=== PATIENT | male | born 1955 | race Caucasian/White ===

== ENCOUNTER 2019-03-26 09:26 | Day surgery (SDC) | payer MEDICARE, OTHER ==
[2019-03-23 10:15] VITALS: BMI 29.3
[~2019-03-26 09:26] MED LIST: ALPRAZolam 0.25 MG TAB PO PRN; ALPRAZolam 0.5 MG TAB PO PRN; ASPIRIN 325 MG TAB PO STA; ATORVASTATIN 80 MG TAB PO STA; NITROGLYCERIN SL TABS 0.4 MG TAB SUBLINGUAL PRN; SODIUM CHLORIDE 0.9% 1,000 ML in EMPTY BAG 1 BAG IV ONE
[2019-03-26] MEDS ORDERED: SODIUM CHLORIDE 0.9% 1,000 ML IV ONE (09:46)
[2019-03-26 09:56] LABS: Glucose,Whole Blood 185 mg/dL (75-99)
[2019-03-26 10:23] VITALS: RESP 20; TEMP 99.4
[2019-03-26] MEDS ORDERED: fentaNYL (PF) 50 MCG/ML 2 ML AMP ONE (10:23)
[2019-03-26] MEDS ORDERED: LIDOCAINE 1% INJ 10MG/ML (20 ML MDV) ONE (10:23)
[2019-03-26] MEDS: MIDAZOLAM (PF) 2 MG/2 ML VIAL IV ONE ×2 (10:26→10:31)
[2019-03-26] MEDS ORDERED: fentaNYL (PF) 50 MCG/ML 2 ML AMP IV ONE (10:26)
[2019-03-26] MEDS ORDERED: LIDOCAINE 1% INJ 10MG/ML (20 ML MDV) SQ ONE (10:28)
[2019-03-26] MEDS ORDERED: IOPAMIDOL-370 125ML BTL INJ ONE (10:48)
[2019-03-26] MEDS ORDERED: RX INFO: IV CONTRAST WAS GIVEN 1 EACH MISC MISCELLANE PRN (10:53)
[2019-03-26] MEDS ORDERED: SODIUM CHLORIDE 0.9% 1,000 ML IV SCH (11:00)
--- NOTE | 2019-03-26 11:07 | CC ---
CARDIAC CATHETERIZATION REPORT INDICATION: Known CAD with abnormal stress test showing ischemia in right coronary artery distribution. PROCEDURE NOTE: After obtaining informed consent, left heart catheterization and coronary angiogram were performed via the right femoral artery using standard Vandana catheters. Patient tolerated the procedure well without any obvious immediate complications. FINDINGS: 1. HEMODYNAMICS: Left ventricular end-diastolic pressure is 13 mm. There is no significant gradient across the aortic valve. 2. LEFT VENTRICULOGRAM: Left ventriculogram is not performed. 3. ANGIOGRAPHIC DATA: Left Main Coronary Artery: Left main coronary artery is a normal-sized vessel and is free of stenosis. Divides into left anterior descending coronary artery and circumflex coronary artery. Circumflex coronary artery shows mild mild to moderate atherosclerotic plaque in a nondominant circumflex coronary artery. The OM branch shows mild atherosclerotic plaque. LAD appears heavily calcified and in the previously stented segment, there is a focal area of restenosis. At its worst, it seems to be a 90% stenosis. Right coronary artery is a large dominant vessel that appears heavily calcified. There are [id number] collaterals. In the proximal part, there is a focal 90% to 95% stenosis and there is extensive disease involving mid coronary artery and distal coronary artery. After it bifurcates into PDA and PLV in the ostial portion of the PLV branch, there is an 80% to 90% stenosis and in the midportion of the right coronary artery also, there is a 70% stenosis. CONCLUSIONS: Three-vessel coronary artery disease as described above with a focal area of stenosis involving LAD in the previously stented segment with severe stenosis involving the dominant right coronary artery. PLAN: I am going to review the angiographic data with Dr. Jordan the on-call shuttle inspector and we can hopefully do catheter based revascularization of both the LAD and the right coronary arteries. MMODL / IJN: [id number] /
[2019-03-26 13:24] LABS: ALT 22 U/L (21-72); AST 15 U/L (17-59); Albumin 3.9 g/dL (3.5-5.0); Alkaline Phosphatase 43 U/L (38-126); Anion Gap 6 mmol/L; Blood Urea Nitrogen 16 mg/dL (9-20); Calcium 9.2 mg/dL (8.4-10.2); Carbon Dioxide 27 mmol/L (22-30); Chloride 109 mmol/L (98-107); Glucose 186 mg/dL (74-99); Potassium 4.1 mmol/L (3.5-5.1); Sodium 142 mmol/L (137-145); Total Bilirubin 0.3 mg/dL (0.2-1.3); Total Protein 6.1 g/dL (6.3-8.2)
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
[2019-03-26 17:37] LABS: Appearance,Urine Clear (Clear); Bilirubin,Urine Negative (Negative); Blood,Urine Negative (Negative); Color,Urine Light Yellow; Glucose,Urine (UA) 3+ (Negative); Ketones,Urine Negative (Negative); Leukocyte Esterase,Urine Negative (Negative); Nitrite,Urine Negative (Negative); Protein,Urine Negative (Negative); Specific Gravity,Urine 1.036 (1.001-1.035); Urobilinogen,Urine <2.0 mg/dL (<2.0)
[2019-03-26 17:45] VITALS: BP 136/80; PULSE 64
--- NOTE | 2019-03-26 18:13 | XR ---
EXAMINATION TYPE: XR chest 2V DATE OF EXAM: 03/26/2019 COMPARISON: 11/30/2014 HISTORY: Preop surgery TECHNIQUE: Frontal and lateral views of the chest are obtained. FINDINGS: There is no heart failure nor confluent pneumonic infiltrate. Costophrenic angles are anitha r. There are chest leads. Diaphragm is normal. Bony thorax appears intact. IMPRESSION: Chest appears normal for age. No change.
[2019-03-26 20:42] LABS: Hemoglobin A1C 6.1 % (4.0-6.0)
--- NOTE | 2019-04-04 09:52 | P.VSCSTY ---
Greater Saphenous Vein Mapping This is bilateral lower extremity greater saphenous vein mapping. Date of service 03/26/2019 Vein quality and ultrasound appearance no endoluminal thrombus or wall changes are seen. Vein size groin right 11 x 7.8 groin left 6.3 x 6.4 High thigh right 4.2 x 4.6 high thigh left 6.7 x 5.8 Mid thigh right 5.0 x 4.2 mid thigh left 5.3 x 4.4 Above-knee right 5.6 x 4.0 above-knee left 5.6 x 4.4 Below knee right 4.0 x 3.5 below-knee left 3.8 x 3.5 Mid calf right 3.1 x 2.7 mid calf left 3.0 x 2.1 Ankle right 3.7 x 2.9 ankle left 2.4 x 2.2 Impression usable bilateral greater saphenous vein.
== END 2019-03-26 18:16 | disposition home or self-care (01) ==
LOC: CATHCVL 09:26
PROVIDERS: ATTEND Internal Medicine Cardiovascular Disease
DX: I25.10 Atherosclerotic heart disease of native coronary artery without angina pectoris (principal); T82.855A Stenosis of coronary artery stent, initial encounter; I25.84 Coronary atherosclerosis due to calcified coronary lesion; I08.3 Combined rheumatic disorders of mitral, aortic and tricuspid valves; I10 Essential (primary) hypertension; E78.2 Mixed hyperlipidemia; E11.9 Type 2 diabetes mellitus without complications; Z79.84 Long term (current) use of oral hypoglycemic drugs; Z98.2 Presence of cerebrospinal fluid drainage device; I69.398 Other sequelae of cerebral infarction; M19.90 Unspecified osteoarthritis, unspecified site; G47.30 Sleep apnea, unspecified; Z99.89 Dependence on other enabling machines and devices; Z80.1 Family history of malignant neoplasm of trachea, bronchus and lung; Z80.0 Family history of malignant neoplasm of digestive organs; Z79.899 Other long term (current) drug therapy; Z79.82 Long term (current) use of aspirin; Z88.8 Allergy status to other drugs, medicaments and biological substances
CPT/HCPCS: 93458; 84439; 80053; 84443; 81003; 83036; 71046; 93970; C1894; C1769; J2001; J3010; Q9967; J2250

== ENCOUNTER 2021-08-14 21:22 | Inpatient (IN) | payer OTHER, MEDICARE ==
[2021-08-14] MEDS ORDERED: SODIUM CHLORIDE 0.9% 1,000 ML IV STA (22:04)
[2021-08-14] MEDS ORDERED: VANCOMYCIN IV PER PHARMACY 1 EACH MISC MISCELLANE PRN (22:05)
[2021-08-14] MEDS ORDERED: MORPHINE SULFATE 4 MG/ML SYRINGE IVP STA (22:05)
[2021-08-14] MEDS ORDERED: VANCOMYCIN 1,250 MG in SODIUM CHLORIDE 0.9% 250 ML IVPB ONE (22:15)
[2021-08-14] MEDS ORDERED: ONDANSETRON 4 MG/2 ML VIAL IVP PRN (23:30)
[2021-08-14] MEDS ORDERED: NALOXONE 0.4 MG/ML 1 ML VIAL IV PRN (23:30)
--- NOTE | 2021-08-14 23:31 | ED ---
Recheck HPI - General Chief Complaint: Recheck/Abnormal Lab/Rx Stated Complaint: Incision drainage Time Seen by Provider: 08/14/21 21:40 Source: patient, EMS Mode of arrival: EMS Limitations: no limitations - Related Data Home Medications Medication Instructions Recorded Confirmed Cyclobenzaprine [Flexeril] 10 mg PO BID PRN 11/30/14 08/14/21 Docusate [Colace] 100 mg PO BID PRN 11/30/14 08/14/21 metFORMIN HCL [Glucophage] 850 mg PO BID@0800,1700 11/30/14 08/14/21 amLODIPine [Norvasc] 10 mg PO DAILY@0800 03/23/19 08/14/21 clonazePAM [KlonoPIN] 0.5 mg PO HS PRN 03/23/19 08/14/21 Acetaminophen Tab [Tylenol Tab] 1,000 mg PO Q8H 08/14/21 08/14/21 Ascorbic Acid [Vitamin C] 1,000 mg PO BID@0800,1700 08/14/21 08/14/21 Aspirin 81 mg PO DAILY@0800 08/14/21 08/14/21 Cetirizine HCl 10 mg PO DAILY@0800 08/14/21 08/14/21 Cholecalciferol [Vitamin D3 (25 125 mcg PO WE@1700 08/14/21 08/14/21 Mcg = 1000 Iu)] Clopidogrel [Plavix] 75 mg PO DAILY@0800 08/14/21 08/14/21 Famotidine [Pepcid] 20 mg PO BID@0800,1700 08/14/21 08/14/21 Ferrous Sulfate [Feosol] 325 mg PO BID@0800,1700 08/14/21 08/14/21 Fluticasone Nasal [place] [Flonase 2 spray EA NOSTRIL DAILY@0800 08/14/21 08/14/21 Nasal [place]] Gabapentin [Neurontin] 1,200 mg PO BID@0800,2100 08/14/21 08/14/21 Ketotifen 0.025% Ophth Soln 1 drop BOTH EYES BID@0800,2100 08/14/21 08/14/21 [Zaditor] Liquacel 30 ml PO TID@0800,1200,1700 08/14/21 08/14/21 Magnesium Hydroxide [Milk of 7,200 mg PO Q48H PRN 08/14/21 08/14/21 Magnesia Concentrate] Metoprolol Succinate (ER) [Toprol 100 mg PO DAILY@0800 08/14/21 08/14/21 Xl] Na Phos,M-B/Na Phos,Di-Ba [Fleet 133 ml RECTAL DAILY PRN 08/14/21 08/14/21 Adult] Polyethylene Glycol 3350 [Miralax] 17 gm PO DAILY@0800 08/14/21 08/14/21 Polyvinyl Alcohol/Povidone [Clear 2 drops BOTH EYES TID PRN 08/14/21 08/14/21 Eyes Natural Tears Drop] QUEtiapine FUMARATE [SEROquel] 300 mg PO HS 08/14/21 08/14/21 Rosuvastatin Calcium [Crestor] 5 mg PO HS 08/14/21 08/14/21 Sennosides [Senna] 17.2 mg PO HS 08/14/21 08/14/21 Sennosides [Senna] 17.2 mg PO HS PRN 08/14/21 08/14/21 Ubidecarenone [Co Q-10] 100 mg PO DAILY@1700 08/14/21 08/14/21 bisacodyL [Dulcolax] 10 mg RECTAL DAILY PRN 08/14/21 08/14/21 glipiZIDE [Glucotrol] 10 mg PO DAILY@0800 08/14/21 08/14/21 lisinopriL 20 mg PO DAILY@0800 08/14/21 08/14/21 oxyCODONE HCL [oxyCODONE HCL (IR)] 15 mg PO Q3H PRN 08/14/21 08/14/21 Allergies Allergy/AdvReac Type Severity Reaction Status Date / Time simvastatin Allergy SEVERE Verified 08/14/21 23:25 MUSCLE WEAKNESS aluminum AdvReac Unknown Verified 08/14/21 23:25 omeprazole AdvReac INCREASE Verified 08/14/21 23:25 IN HEARTBURN" Review of Systems ROS Statement: Those systems with pertinent positive or pertinent negative responses have been documented in the HPI. ROS Other: All systems not noted in ROS Statement are negative. Past Medical History Past Medical History: Coronary Artery Disease (CAD), CVA/TIA, Diabetes Mellitus, Hyperlipidemia, Hypertension, Osteoarthritis (OA), Sleep Apnea/CPAP/BIPAP Additional Past Medical History / Comment(s): BACK PAIN, CVA 2004, History of Any Multi-Drug Resistant Organisms: None Reported Past Surgical History: Heart Catheterization With Stent, Ventriculoperitoneal Shunt Additional Past Surgical History / Comment(s): COLONOSCOPY, EGD , LEFT ARM SURGERY WITH PLATE, PLATE REMOVED FROM LEFT HAND , VASECTOMY Past Anesthesia/Blood Transfusion Reactions: Previous Problems w/ Anesthesia Additional Past Anesthesia/Blood Transfusion Reaction / Comment(s): STATES WHEN HE WOKE UP FROM HIS FIRST HAND SURGERY HAD A FEELING OF SHORTNESS OF BREATH " NO PROBLEM WITH ANESTHESIA SINCE" Date of Last Stent Placement:: 2005 Past Psychological History: No Psychological Hx Reported Smoking Status: Never smoker Past Alcohol Use History: Occasional Past Drug Use History: Marijuana - Past Family History Mother Family Medical History: Cancer Additional Family Medical History / Comment(s): LIVER CANCER Father Family Medical History: Cancer Additional Family Medical History / Comment(s): Had lung cancer General Exam Limitations: no limitations Course Vital Signs 08/14/21 21:30 Temperature 97.8 F Pulse Rate 89 Respiratory 18 Rate Blood Pressure 113/65 O2 Sat by Pulse 99 Oximetry Medical Decision Making - Lab Data Result diagrams: 08/14/21 22:25 08/14/21 22:25 Lab Results 08/14/21 08/14/21 08/14/21 Range/Units 22:25 22:25 22:25 WBC 10.5 (3.8-10.6) k/uL RBC 3.22 L (4.30-5.90) m/uL Hgb 8.1 L (13.0-17.5) gm/dL Hct 26.3 L (39.0-53.0) % MCV 81.5 (80.0-100.0) fL MCH 25.1 (25.0-35.0) pg MCHC 30.8 L (31.0-37.0) g/dL RDW 16.8 H (11.5-15.5) % Plt Count 370 (150-450) k/uL MPV 6.8 Neutrophils % 82 % Lymphocytes % 9 % Monocytes % 6 % Eosinophils % 2 % Basophils % 0 % Neutrophils # 8.6 H (1.3-7.7) k/uL Lymphocytes # 1.0 (1.0-4.8) k/uL Monocytes # 0.6 (0-1.0) k/uL Eosinophils # 0.2 (0-0.7) k/uL Basophils # 0.0 (0-0.2) k/uL Hypochromasia Slight Anisocytosis Slight PT 10.8 (9.0-12.0) sec INR 1.0 (<1.2) APTT 22.7 (22.0-30.0) sec Sodium 136 L (137-145) mmol/L Potassium 4.4 (3.5-5.1) mmol/L Chloride 101 (98-107) mmol/L Carbon Dioxide 25 (22-30) mmol/L Anion Gap 10 mmol/L BUN 17 (9-20) mg/dL Creatinine 0.54 L (0.66-1.25) mg/dL Est GFR (CKD-EPI)AfAm >90 (>60 ml/min/1.73 sqM) Est GFR (CKD-EPI)NonAf >90 (>60 ml/min/1.73 sqM) Glucose 146 H (74-99) mg/dL Plasma Lactic Acid Teja (0.7-2.0) mmol/L Calcium 10.1 (8.4-10.2) mg/dL Phosphorus 3.3 (2.5-4.5) mg/dL Magnesium 1.7 (1.6-2.3) mg/dL Total Bilirubin 0.6 (0.2-1.3) mg/dL AST 25 (17-59) U/L ALT 7 (4-49) U/L Alkaline Phosphatase 76 (38-126) U/L Total Protein 6.7 (6.3-8.2) g/dL Albumin 3.7 (3.5-5.0) g/dL 08/14/21 Range/Units 22:25 WBC (3.8-10.6) k/uL RBC (4.30-5.90) m/uL Hgb (13.0-17.5) gm/dL Hct (39.0-53.0) % MCV (80.0-100.0) fL MCH (25.0-35.0) pg MCHC (31.0-37.0) g/dL RDW (11.5-15.5) % Plt Count (150-450) k/uL MPV Neutrophils % % Lymphocytes % % Monocytes % % Eosinophils % % Basophils % % Neutrophils # (1.3-7.7) k/uL Lymphocytes # (1.0-4.8) k/uL Monocytes # (0-1.0) k/uL Eosinophils # (0-0.7) k/uL Basophils # (0-0.2) k/uL Hypochromasia Anisocytosis PT (9.0-12.0) sec INR (<1.2) APTT (22.0-30.0) sec Sodium (137-145) mmol/L Potassium (3.5-5.1) mmol/L Chloride (98-107) mmol/L Carbon Dioxide (22-30) mmol/L Anion Gap mmol/L BUN (9-20) mg/dL Creatinine (0.66-1.25) mg/dL Est GFR (CKD-EPI)AfAm (>60 ml/min/1.73 sqM) Est GFR (CKD-EPI)NonAf (>60 ml/min/1.73 sqM) Glucose (74-99) mg/dL Plasma Lactic Acid Teja 1.3 (0.7-2.0) mmol/L Calcium (8.4-10.2) mg/dL Phosphorus (2.5-4.5) mg/dL Magnesium (1.6-2.3) mg/dL Total Bilirubin (0.2-1.3) mg/dL AST (17-59) U/L ALT (4-49) U/L Alkaline Phosphatase (38-126) U/L Total Protein (6.3-8.2) g/dL Albumin (3.5-5.0) g/dL - EKG Data -: EKG Interpreted by Me (PG is sinus rhythm 91 UT 148 QRS 102 QTC 450) Disposition Clinical Impression: Left below-knee amputee, Postoperative infection Disposition: ADMITTED IP TO THIS HOSP Condition: Good Is patient prescribed a controlled substance at d/c from ED?: No
[2021-08-14 23:37] LABS: Anisocytosis Slight; Basophils % (A) 0 %; Eosinophils # (A) 0.2 k/uL (0-0.7); Eosinophils % (A) 2 %; HCT 26.3 % (39.0-53.0); HGB 8.1 gm/dL (13.0-17.5); Hypochromasia Slight; Lymphocytes % (A) 9 %; MCH 25.1 pg (25.0-35.0); MCHC 30.8 g/dL (31.0-37.0); MCV 81.5 fL (80.0-100.0); Mean Platelet Volume 6.8; Monocytes # (A) 0.6 k/uL (0-1.0); Monocytes % (A) 6 %; Neutrophils # (A) 8.6 k/uL (1.3-7.7); Neutrophils % (A) 82 %; Platelet Count 370 k/uL (150-450); RBC 3.22 m/uL (4.30-5.90); RDW 16.8 % (11.5-15.5); WBC 10.5 k/uL (3.8-10.6)
[2021-08-14 23:49] LABS: ALT 7 U/L (4-49); AST 25 U/L (17-59); African American GFR (CKD) >90 (>60 ml/min/1.73 sqM); Albumin 3.7 g/dL (3.5-5.0); Alkaline Phosphatase 76 U/L (38-126); Anion Gap 10 mmol/L; Blood Urea Nitrogen 17 mg/dL (9-20); Calcium 10.1 mg/dL (8.4-10.2); Carbon Dioxide 25 mmol/L (22-30); Chloride 101 mmol/L (98-107); Glucose 146 mg/dL (74-99); Magnesium 1.7 mg/dL (1.6-2.3); Non-African American GFR(CKD) >90 (>60 ml/min/1.73 sqM); Phosphorus 3.3 mg/dL (2.5-4.5); Potassium 4.4 mmol/L (3.5-5.1); Sodium 136 mmol/L (137-145); Total Bilirubin 0.6 mg/dL (0.2-1.3); Total Protein 6.7 g/dL (6.3-8.2)
[2021-08-14 23:56] LABS: Partial Thromboplastin Time 22.7 sec (22.0-30.0); Prothrombin Time 10.8 sec (9.0-12.0)
--- NOTE | 2021-08-14 23:56 | XR ---
EXAMINATION TYPE: XR knee complete LT DATE OF EXAM: 08/14/2021 COMPARISON: NONE HISTORY: Knee pain. Drainage. TECHNIQUE: 3 views FINDINGS: There is below-knee amputation. I see no fracture nor dislocation. There is no evidence of focal bone destruction. There are surgical clips. Patella is intact. There is no significant joint fl uid. IMPRESSION: There is vascular calcification. No fracture. No sign of osteomyelitis.
[2021-08-15] MEDS: MORPHINE SULFATE 4 MG/ML SYRINGE IVP PRN ×2 (05:52→09:12)
[2021-08-15 07:27] LABS: Anisocytosis Slight; Basophils % (A) 0 %; Eosinophils # (A) 0.1 k/uL (0-0.7); Eosinophils % (A) 2 %; HCT 23.5 % (39.0-53.0); HGB 7.3 gm/dL (13.0-17.5); Hypochromasia Moderate; Lymphocytes # (A) 0.9 k/uL (1.0-4.8); Lymphocytes % (A) 11 %; MCH 25.9 pg (25.0-35.0); MCV 83.3 fL (80.0-100.0); Mean Platelet Volume 7.2; Monocytes # (A) 0.5 k/uL (0-1.0); Monocytes % (A) 6 %; Neutrophils # (A) 6.2 k/uL (1.3-7.7); Neutrophils % (A) 79 %; Platelet Count 330 k/uL (150-450); RBC 2.82 m/uL (4.30-5.90); RDW 16.6 % (11.5-15.5); WBC 7.9 k/uL (3.8-10.6)
[2021-08-15 07:44] LABS: ALT 7 U/L (4-49); AST 19 U/L (17-59); African American GFR (CKD) >90 (>60 ml/min/1.73 sqM); Albumin 3.1 g/dL (3.5-5.0); Alkaline Phosphatase 75 U/L (38-126); Anion Gap 10 mmol/L; Blood Urea Nitrogen 13 mg/dL (9-20); Calcium 9.5 mg/dL (8.4-10.2); Carbon Dioxide 26 mmol/L (22-30); Chloride 101 mmol/L (98-107); Glucose 143 mg/dL (74-99); Non-African American GFR(CKD) >90 (>60 ml/min/1.73 sqM); Potassium 3.6 mmol/L (3.5-5.1); Sodium 137 mmol/L (137-145); Total Bilirubin 0.3 mg/dL (0.2-1.3); Total Protein 5.9 g/dL (6.3-8.2)
[2021-08-15] MEDS ORDERED: bisacodyL 10 MG SUPP RECTAL PRN (08:20)
[2021-08-15] MEDS ORDERED: DOCUSATE 100 MG CAP PO PRN (08:20)
[2021-08-15] MEDS ORDERED: SENNOSIDES 8.6 MG TAB PO PRN (08:20)
[2021-08-15] MEDS ORDERED: CYCLOBENZAPRINE 10 MG TAB PO PRN (08:20)
[2021-08-15] MEDS ORDERED: clonazePAM 0.5 MG TAB PO PRN (08:20)
[2021-08-15] MEDS ORDERED: ACETAMINOPHEN TAB 500 MG TAB PO PRN (08:30)
[2021-08-15] MEDS: PANTOPRAZOLE 40 MG/10 ML VIAL IV SCH (09:10)
[2021-08-15] MEDS: ASCORBIC ACID 500 MG TAB PO SCH (09:12)
[2021-08-15] MEDS: FERROUS SULFATE 325 MG TAB PO SCH (09:14)
[2021-08-15] MEDS: GABAPENTIN 400 MG CAP PO SCH ×2 (10:30→21:19)
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
[2021-08-15] MEDS ORDERED: VANCOMYCIN 1,250 MG in SODIUM CHLORIDE 0.9% 250 ML IVPB SCH (15:00)
[2021-08-15] MEDS ORDERED: FAMOTIDINE 20 MG TAB PO SCH (17:00)
[2021-08-15] MEDS: VANCOMYCIN 1,250 MG in SODIUM CHLORIDE 0.9% 250 ML IVPB SCH ×2 (17:24→21:23)
[2021-08-15] MEDS: INSULIN ASPART (NovoLOG) 100 UNIT/ML VIAL SQ SCH ×2 (18:36→21:22)
[2021-08-15 19:52] LABS: Glucose,Whole Blood 161 mg/dL (75-99)
[2021-08-15] MEDS ORDERED: HEPARIN SODIUM,PORCINE/PF 5,000 UNIT/0.5 ML SYRINGE SQ SCH (21:00)
[2021-08-15] MEDS: KETOTIFEN 0.025% OPHTH DROPS 5 ML BTL BOTH EYES SCH (21:21)
[2021-08-15] MEDS: QUEtiapine 100 MG TAB PO SCH (21:21)
[2021-08-15] MEDS: NON FORMULARY DRUG (Rosuvastatin Calcium [Crestor] 5 MG Tablet) PO SCH (22:00)
[2021-08-16 06:03] LABS: Glucose,Whole Blood 141 mg/dL (75-99)
[2021-08-16] MEDS: VANCOMYCIN 1,250 MG in SODIUM CHLORIDE 0.9% 250 ML IVPB SCH ×3 (06:06→21:14)
[2021-08-16] MEDS: INSULIN ASPART (NovoLOG) 100 UNIT/ML VIAL SQ SCH ×4 (06:06→20:07)
[2021-08-16] MEDS: METOPROLOL SUCCINATE (ER) 100 MG TAB.ER.24H PO SCH (08:38)
[2021-08-16] MEDS: GABAPENTIN 400 MG CAP PO SCH ×2 (08:38→20:04)
[2021-08-16] MEDS: ENOXAPARIN 40 MG/0.4 ML SYRINGE SQ SCH (08:38)
[2021-08-16] MEDS: PANTOPRAZOLE 40 MG/10 ML VIAL IV SCH (08:38)
[2021-08-16] MEDS: glipiZIDE 10 MG TAB PO SCH (08:38)
[2021-08-16] MEDS: polyethylene glycoL 3350 17 GM POWD.PACK PO SCH (08:39)
[2021-08-16] MEDS: CLOPIDOGREL 75 MG TAB PO SCH (08:39)
[2021-08-16] MEDS: ASPIRIN 81 MG PO SCH (08:39)
[2021-08-16] MEDS: ASCORBIC ACID 500 MG TAB PO SCH ×2 (08:39→16:09)
[2021-08-16] MEDS: FERROUS SULFATE 325 MG TAB PO SCH ×2 (08:39→16:10)
[2021-08-16] MEDS: lisinopriL 20 MG TAB PO SCH (08:39)
[2021-08-16] MEDS: amLODIPine 10 MG TAB PO SCH (08:39)
[2021-08-16] MEDS: LORATADINE 10 MG TAB PO SCH (08:39)
[2021-08-16] MEDS: KETOTIFEN 0.025% OPHTH DROPS 5 ML BTL BOTH EYES SCH ×2 (08:40→20:05)
[2021-08-16] MEDS: FLUTICASONE 50MCG/SPRAY NASAL 16GM EA NOSTRIL SCH (08:59)
[2021-08-16 09:44] LABS: Anisocytosis Slight; HCT 25.1 % (39.0-53.0); HGB 7.8 gm/dL (13.0-17.5); Hypochromasia Slight; MCH 25.3 pg (25.0-35.0); MCV 81.6 fL (80.0-100.0); Platelet Count 415 k/uL (150-450); RBC 3.08 m/uL (4.30-5.90); RDW 16.6 % (11.5-15.5); WBC 5.4 k/uL (3.8-10.6)
[2021-08-16 09:52] LABS: ALT 9 U/L (4-49); AST 18 U/L (17-59); African American GFR (CKD) >90 (>60 ml/min/1.73 sqM); Albumin 3.2 g/dL (3.5-5.0); Alkaline Phosphatase 75 U/L (38-126); Anion Gap 9 mmol/L; Blood Urea Nitrogen 9 mg/dL (9-20); Calcium 9.6 mg/dL (8.4-10.2); Carbon Dioxide 26 mmol/L (22-30); Chloride 105 mmol/L (98-107); Glucose 190 mg/dL (74-99); Non-African American GFR(CKD) >90 (>60 ml/min/1.73 sqM); Potassium 3.5 mmol/L (3.5-5.1); Sodium 140 mmol/L (137-145); Total Bilirubin 0.3 mg/dL (0.2-1.3); Total Protein 5.8 g/dL (6.3-8.2)
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
[2021-08-16 11:49] LABS: Glucose,Whole Blood 99 mg/dL (75-99)
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
[2021-08-16 16:31] LABS: Glucose,Whole Blood 97 mg/dL (75-99)
[2021-08-16 20:03] LABS: Glucose,Whole Blood 222 mg/dL (75-99)
[2021-08-16] MEDS: NON FORMULARY DRUG (Rosuvastatin Calcium [Crestor] 5 MG Tablet) PO SCH (20:09)
[2021-08-16] MEDS: QUEtiapine 100 MG TAB PO SCH (21:15)
[2021-08-16 22:11] VITALS: RESP 18
[2021-08-16 22:52] LABS: Chol/HDL Ratio 3.51 Ratio; HDL Cholesterol 29.9 mg/dL (40.00-60.00); LDL Cholesterol,Calculated 55.3 mg/dL (0.0-131.0); Triglycerides 98.8 mg/dL (0.00-149.00); VLDL Calculation 19.76 mg/dL (5.00-40.00)
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
[2021-08-17] MEDS ORDERED: VANCOMYCIN TROUGH DUE 1 EACH MISC MISCELLANE ONE (05:00)
[2021-08-17] MEDS: VANCOMYCIN 1,250 MG in SODIUM CHLORIDE 0.9% 250 ML IVPB SCH ×2 (05:22→14:59)
[2021-08-17 05:45] LABS: Anisocytosis Slight; Basophils % (A) 1 %; Eosinophils # (A) 0.3 k/uL (0-0.7); Eosinophils % (A) 7 %; Hypochromasia Moderate; Lymphocytes # (A) 1.2 k/uL (1.0-4.8); Lymphocytes % (A) 26 %; MCH 25.2 pg (25.0-35.0); MCHC 30.4 g/dL (31.0-37.0); MCV 82.8 fL (80.0-100.0); Mean Platelet Volume 7.1; Monocytes # (A) 0.3 k/uL (0-1.0); Monocytes % (A) 7 %; Neutrophils # (A) 2.6 k/uL (1.3-7.7); Neutrophils % (A) 58 %; Platelet Count 365 k/uL (150-450); RBC 2.78 m/uL (4.30-5.90); RDW 16.9 % (11.5-15.5); WBC 4.6 k/uL (3.8-10.6)
[2021-08-17 05:59] LABS: African American GFR (CKD) >90 (>60 ml/min/1.73 sqM); Anion Gap 6 mmol/L; Blood Urea Nitrogen 7 mg/dL (9-20); Calcium 9.6 mg/dL (8.4-10.2); Carbon Dioxide 27 mmol/L (22-30); Chloride 108 mmol/L (98-107); Glucose 125 mg/dL (74-99); Non-African American GFR(CKD) >90 (>60 ml/min/1.73 sqM); Potassium 3.8 mmol/L (3.5-5.1); Sodium 141 mmol/L (137-145)
[2021-08-17 06:04] LABS: Glucose,Whole Blood 141 mg/dL (75-99)
[2021-08-17] MEDS: INSULIN ASPART (NovoLOG) 100 UNIT/ML VIAL SQ SCH ×2 (06:14→11:40)
[2021-08-17] MEDS ORDERED: PANTOPRAZOLE 40 MG TABLET PO SCH (07:30)
[2021-08-17] MEDS: ASCORBIC ACID 500 MG TAB PO SCH (08:58)
[2021-08-17] MEDS: GABAPENTIN 400 MG CAP PO SCH (08:58)
[2021-08-17] MEDS: CLOPIDOGREL 75 MG TAB PO SCH (08:58)
[2021-08-17] MEDS: FERROUS SULFATE 325 MG TAB PO SCH (08:58)
[2021-08-17] MEDS: LORATADINE 10 MG TAB PO SCH (08:58)
[2021-08-17] MEDS: polyethylene glycoL 3350 17 GM POWD.PACK PO SCH (08:58)
[2021-08-17] MEDS: ASPIRIN 81 MG PO SCH (08:58)
[2021-08-17] MEDS: glipiZIDE 10 MG TAB PO SCH (08:58)
[2021-08-17] MEDS: ENOXAPARIN 40 MG/0.4 ML SYRINGE SQ SCH (08:59)
[2021-08-17] MEDS: FLUTICASONE 50MCG/SPRAY NASAL 16GM EA NOSTRIL SCH (09:05)
[2021-08-17] MEDS: KETOTIFEN 0.025% OPHTH DROPS 5 ML BTL BOTH EYES SCH (09:05)
[2021-08-17] MEDS: amLODIPine 10 MG TAB PO SCH (09:09)
[2021-08-17] MEDS: METOPROLOL SUCCINATE (ER) 100 MG TAB.ER.24H PO SCH (09:10)
[2021-08-17] MEDS: lisinopriL 20 MG TAB PO SCH (09:10)
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
[2021-08-17 11:40] VITALS: BP 125/64; PULSE 83; TEMP 98.7
[2021-08-17 11:41] LABS: Glucose,Whole Blood 122 mg/dL (75-99)
--- NOTE | 2021-08-17 13:47 | PN ---
PROGRESS NOTE DATE OF SERVICE: 08/17/2021. REASON FOR FOLLOWUP: Left BK stump wound infection. INTERVAL HISTORY: The patient is afebrile. Patient is breathing comfortably. Overall pain and discomfort to the left BK stump has decreased. No chest pain, shortness of breath or cough. No abdominal pain or diarrhea. PHYSICAL EXAMINATION: Blood pressure 125/64, pulse of 83, temperature 98.7. He is 99% on room air. General description is an elderly male up in the bed in no distress. Respiratory system: Unlabored breathing, clear to auscultation anteriorly. Heart S1, S2. Regular rate and rhythm. Abdomen soft, no tenderness. The left BK stump is currently dressed. No obvious drainage on the dressing. LABS: White count 4.6, creatinine 0.53. Blood culture negative. DIAGNOSTIC IMPRESSION AND PLAN: Patient with left BKA stump wound infection. Culture with MRSA. Blood culture negative. He will get a 2 week course of IV vancomycin, pharmacy to dose and close outpatient followup. MMODL / IJN: [id number] /
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
[2021-08-17 14:11] VITALS: BMI 23.6
[2021-08-17] MEDS ORDERED: LIDOCAINE 1% INJ 10MG/ML (20 ML MDV) SQ ONE (14:38)
--- NOTE | 2021-08-17 16:13 | IR ---
PICC LINE PLACEMENT: HISTORY: Infection requiring long-term antibiotic therapy PROCEDURE: Ultrasound and fluoroscopic guidance of PICC line placement. COMPLICATIONS: None ANESTHESIA: 1. 1% Lidocaine locally. FINDINGS/TECHNIQUE: The procedure was explained to the patient. The risks, complications, benefits and alternatives were discussed and any questions were answered. Informed consent was obtained. The patient was placed supine on the fluoroscopic table and prepped and draped in the usual sterile fash ion. Utilizing a 21 gauge needle and sonographic and fluoroscopic guidance, access in the left basi lic vein was achieved and there is placement of a 0.018 guidewire. The vein is patent. A 4-F sheath was placed over the guidewire. The guidewire and dilator were removed and a 4-F. PICC line was plac ed through the sheath with the tip at the level of the SVC. The sheath was removed, the catheter was flushed and sutured into position. The patient was stable throughout the procedure and remained sta ble upon discharge from the Department of Radiology. The vein puncture was patent under ultrasound. A dunaway scale image was obtained to document patency of the vein punctured. All elements of the maximal barrier technique were utilized. FLUOROSCOPY TIME: 0.2 minutes and one image submitted IMPRESSION: Successful PICC line placement under ultrasound and fluoroscopic guidance.
--- NOTE | 2021-08-18 08:00 | ECHOF ---
Referral Reason:abnormal trops MEASUREMENTS -------- HEIGHT: 172.7 cm WEIGHT: 70.3 kg BP: RVIDd: 3.0 cm (< 3.3) IVSd: 1.1 cm (0.6 - 1.1) LVIDd: 4.8 cm (3.9 - 5.3) LVPWd: 1.2 cm (0.6 - 1.1) IVSs: 1.9 cm LVIDs: 2.9 cm LVPWs: 2.0 cm Ao Diam: 3.9 cm (2.0 - 3.7) AV Cusp: 2.5 cm (1.5 - 2.6) LA Diam: 2.4 cm (2.7 - 3.8) MV EXCURSION: 10.412 mm (> 18.000) MV EF SLOPE: 78 mm/s (70 - 150) EPSS: 1.1 cm MV E Edison: 0.64 m/s MV DecT: 176 ms MV A Edison: 0.50 m/s MV E/A Ratio: 1.30 RAP: 15.00 mmHg RVSP: 21.59 mmHg FINDINGS -------- This was a technically difficult study with suboptimal views. The left ventricular size is normal. There is mild concentric left ventricular hypertrophy. Overa ll left ventricular systolic function is mild-moderately impaired with, an EF between 40 - 45 %. Ba christiano inferior LV wall motion is hypokinetic. Basal inferoseptal LV wall motion is hypokinetic. M id inferior LV wall motion is hypokinetic. Mid inferoseptal LV wall motion is hypokinetic. The right ventricle is normal in size. The left atrial size is normal. The right atrial size is normal. Lumason used The aortic valve is trileaflet and appears structurally normal. The mitral valve is normal. There is trace mitral regurgitation. The tricuspid valve appears structurally normal. Trace tricuspid regurgitation present. Right patria tricular systolic pressure is normal at < 35 mmHg. There is no pulmonic regurgitation present. The aortic root size is normal. Normal inferior vena cava with normal inspiratory collapse consistent with estimated right atrial pre ssure of 5 mmHg. There is no pericardial effusion. CONCLUSIONS -------- 1. The left ventricular size is normal. 2. There is mild concentric left ventricular hypertrophy. 3. Overall left ventricular systolic function is mild-moderately impaired with, an EF between 40 - 45 %. 4. Basal inferior LV wall motion is hypokinetic. 5. Basal inferoseptal LV wall motion is hypokinetic. 6. Mid inferior LV wall motion is hypokinetic. 7. Mid inferoseptal LV wall motion is hypokinetic. 8. There is trace mitral regurgitation. 9. Trace tricuspid regurgitation present. 10. There is no pericardial effusion. SOCIAL WORK ASSISTANT: Frances Panchal RDCS
[2021-08-19] MEDS ORDERED: CHOLECALCIFEROL 25 MCG (1000 IU) TABLET PO SCH (17:00)
== END 2021-08-17 15:48 | DRG 565 ==
LOC: EC 21:22 → 4SSUR 23:30 → 3SCARD 08-15 01:36 → OBSVTOIN 08-17 08:12
PROVIDERS: ADMIT Internal Medicine Geriatric Medicine; ATTEND Internal Medicine Geriatric Medicine
PROC: B5181ZA Fluoroscopy of Superior Vena Cava using Low Osmolar Contrast, Guidance (ICD-10-PCS; 2021-08-17)
PROC: B548ZZA Ultrasonography of Superior Vena Cava, Guidance (ICD-10-PCS; 2021-08-17)
PROC: 02HV33Z Insertion of Infusion Device into Superior Vena Cava, Percutaneous Approach (ICD-10-PCS; principal; 2021-08-17 23:00)
DX: T87.44 Infection of amputation stump, left lower extremity (principal); I69.351 Hemiplegia and hemiparesis following cerebral infarction affecting right dominant side; G93.49 Other encephalopathy; B95.62 Methicillin resistant Staphylococcus aureus infection as the cause of diseases classified elsewhere; L03.116 Cellulitis of left lower limb; F11.20 Opioid dependence, uncomplicated; T87.81 Dehiscence of amputation stump; I25.10 Atherosclerotic heart disease of native coronary artery without angina pectoris; I69.30 Unspecified sequelae of cerebral infarction; G47.30 Sleep apnea, unspecified; G54.6 Phantom limb syndrome with pain; I10 Essential (primary) hypertension; Y83.5 Amputation of limb(s) as the cause of abnormal reaction of the patient, or of later complication, without mention of misadventure at the time of the procedure; E11.9 Type 2 diabetes mellitus without complications; K59.03 Drug induced constipation; Z20.822 Contact with and (suspected) exposure to COVID-19; T40.2X5A Adverse effect of other opioids, initial encounter; E78.5 Hyperlipidemia, unspecified; Z79.02 Long term (current) use of antithrombotics/antiplatelets; Z79.82 Long term (current) use of aspirin; Z79.2 Long term (current) use of antibiotics; Z79.84 Long term (current) use of oral hypoglycemic drugs; Z79.899 Other long term (current) drug therapy; Z89.512 Acquired absence of left leg below knee; Z95.5 Presence of coronary angioplasty implant and graft; Z98.2 Presence of cerebrospinal fluid drainage device; Z87.828 Personal history of other (healed) physical injury and trauma
CPT/HCPCS: 36415; 36573; 80048; 80053; 80061; 80202; 83605; 83735; 84100; 84484; 85025; 85027; 85610; 85730; 87040; 87070; 87077; 87186; 87205; 87635; 93005; 93306; 99284

== ENCOUNTER → 2023-04-23 | Outpatient (CLI) | payer OTHER ==
--- NOTE | 2023-04-27 19:52 | MR ---
EXAMINATION TYPE: MR shoulder LT wo con DATE OF EXAM: 04/23/2023 COMPARISON: Outside radiograph 04/06/2023 HISTORY: 67-year-old male M25.512, left shoulder pain, Decreased range of motion TECHNIQUE: Multiplanar, multisequence imaging of the left shoulder is performed without contrast. FINDINGS: Severe thickening and heterogeneous signal of the subscapularis tendon. There is attritional tearing of the superior fibers allowing for slight medial subluxation of the long head biceps tendon in the u pper bicipital groove. There is a partial longitudinal split tear seen within the bicipital groove with moderate tenosynovia l fluid. The intracapsular portion is very heterogeneous and probably partially torn. Moderate degenerative change of the acromioclavicular joint. There is a large subacromial/subdeltoid bursal effusion contiguous with the underlying glenohumeral j oint. There is superior subluxation of the glenohumeral joint secondary to instability caused by a ma ss is full-thickness tear of the entire supraspinatus and infraspinatus tendons. Stump retracted near ly to the level of the glenoid by 5 cm Mild diffuse thinning of articular cartilage in the glenoid humeral joint with mild marginal spurring . Some synovial proliferation both along the anterior and posterior recess of the glenoid humeral melissa nt Reactive edema throughout the rotator cuff musculature with mild fatty infiltration throughout. No Hill-Sachs deformity or os acromiale. Heterogeneous red marrow can be seen with anemia, obesity, smoking, and chronic disease. IMPRESSION: 1. Massive full thickness rotator cuff tear involving the entire supraspinatus and infraspinatus tend ons. Stump retraction by 5 cm nearly to the glenoid. Reactive muscle edema with mild fatty infiltrati on throughout the rotator cuff musculature. 2. Secondary glenohumeral joint instability with superior joint subluxation and mild early degenerati ve change in the glenohumeral joint. 3. Severely tendinotic and likely partially torn intracapsular long head biceps tendon. Partial-thick ness longitudinal split tear continues in the extracapsular portion with tenosynovitis. 4. Extensive attritional tearing of the superior subscapularis tendon. At least half of the subscapul dalia tendon remains intact. 5. Moderate joint effusion with chronic synovitis. Joint fluid is contiguous with a large bursal effu eloy.
== END | disposition home or self-care (01) ==
LOC: RADMRIMAIN 14:33
PROVIDERS: ATTEND Orthopaedic Surgery
DX: M19.012 Primary osteoarthritis, left shoulder (principal); M75.112 Incomplete rotator cuff tear or rupture of left shoulder, not specified as traumatic; S46.112A Strain of muscle, fascia and tendon of long head of biceps, left arm, initial encounter; M65.812 Other synovitis and tenosynovitis, left shoulder; M25.412 Effusion, left shoulder; X58.XXXA Exposure to other specified factors, initial encounter

== ENCOUNTER → 2024-02-02 | Outpatient (CLI) | payer OTHER ==
--- NOTE | 2024-02-02 20:58 | US ---
EXAMINATION TYPE: US abdomen complete DATE OF EXAM: 02/02/2024 COMPARISON: NONE CLINICAL INDICATION: Male, 68 years old with history of R10.9 ABDOMINAL PAIN; Abdominal pain TECHNIQUE: Multiple sonographic images of the abdomen are obtained. FINDINGS: EXAM MEASUREMENTS: Liver Length: 18.3 cm Gallbladder Wall: 0.3 cm CBD: 0.5 cm Spleen: 9.8 cm Right Kidney: 12.3 x 5.7 x 5.6 cm Left Kidney: 12.2 x 6.0 x 4.5 cm Pancreas: wnl Liver: slightly enlarged Gallbladder: gallstones versus debris Evidence for sonographic Stevens's sign: no CBD: wnl Spleen: granulomas Right Kidney: multiple cystic lesions, largest = 4.3 x 3.0 x 4.3cm this may have a septation or may be 2 adjacent cysts. Left Kidney: multiple cystic lesions, largest = 4.7 x 4.2 x 5.3cm. dense echogenic focus = 1.0cm Upper IVC: Obscured by overlying bowel gas Abd Aorta: calcifications noted IMPRESSION: 1. Cholelithiasis. Differential diagnosis would include debris within the gallbladder. 2. Right renal cysts 3. Left shadowing renal calcification without obstruction.
== END | disposition home or self-care (01) ==
LOC: RADUSWWP 11:14
PROVIDERS: ATTEND Family Medicine
DX: K80.20 Calculus of gallbladder without cholecystitis without obstruction (principal); N28.1 Cyst of kidney, acquired
CPT/HCPCS: 76700

== ENCOUNTER → 2024-03-20 | Outpatient (CLI) | payer OTHER ==
[2024-03-20 15:34] LABS: Basophils # (A) 0.1 k/uL (0-0.2); Basophils % (A) 1 %; Eosinophils # (A) 0.2 k/uL (0-0.7); Eosinophils % (A) 4 %; HCT 43.1 % (39.0-53.0); HGB 13.6 gm/dL (13.0-17.5); Lymphocytes # (A) 1.1 k/uL (1.0-4.8); Lymphocytes % (A) 17 %; MCHC 31.4 g/dL (31.0-37.0); MCV 98.7 fL (80.0-100.0); Mean Platelet Volume 7.7; Monocytes # (A) 0.4 k/uL (0-1.0); Monocytes % (A) 7 %; Neutrophils # (A) 4.4 k/uL (1.3-7.7); Neutrophils % (A) 71 %; Platelet Count 194 k/uL (150-450); RBC 4.37 m/uL (4.30-5.90); RDW 12.9 % (11.5-15.5); WBC 6.2 k/uL (3.8-10.6)
== END | disposition home or self-care (01) ==
LOC: LABPAT 15:01
PROVIDERS: ATTEND Surgery
DX: Z01.818 Encounter for other preprocedural examination (principal); K42.9 Umbilical hernia without obstruction or gangrene
CPT/HCPCS: 36415; 85025; 86850; 86900; 86901; 93005

== ENCOUNTER 2024-03-28 07:33 | Day surgery (SDC) | payer OTHER ==
[~2024-03-28 07:33] MED LIST changes: +ACETAMINOPHEN TAB 500 MG TAB PO PRN; -ALPRAZolam 0.25 MG TAB PO PRN; -ALPRAZolam 0.5 MG TAB PO PRN; -ASPIRIN 325 MG TAB PO STA; -ATORVASTATIN 80 MG TAB PO STA; +LIDOCAINE 1% (10MG/ML) FOR IV START INTRADERMA PRN; -NITROGLYCERIN SL TABS 0.4 MG TAB SUBLINGUAL PRN; -SODIUM CHLORIDE 0.9% 1,000 ML in EMPTY BAG 1 BAG IV ONE; +droPERidol 5 MG/2 ML VIAL IVP ONE
[2024-03-28] MEDS: LACTATED RINGERS 1,000 ML IV SCH (08:35)
[2024-03-28 08:38] LABS: Glucose,Whole Blood 179 mg/dL (70-110)
[2024-03-28] MEDS: DEXAMETHASONE SOD PHOSPHATE 4 MG/ML 1 ML VIAL IV ONE (08:44)
[2024-03-28] MEDS: ONDANSETRON 4 MG/2 ML VIAL IVP ONE (08:44)
[2024-03-28 08:48] VITALS: RESP 16
[2024-03-28] MEDS: TAMSULOSIN 0.4 MG CAP.ER.24H PO ONE (08:48)
[2024-03-28] MEDS: fentaNYL (PF) 50 MCG/ML 2 ML AMP IVP ONE (08:50)
[2024-03-28] MEDS: MIDAZOLAM 2 MG/2 ML VIAL IVP ONE (08:50)
[2024-03-28] MEDS: HEPARIN SODIUM,PORCINE 5,000 UNIT/ML 1 ML VIAL SQ PRN (09:00)
[2024-03-28 09:15] LABS: ALT 16 U/L (4-49); AST 24 U/L (17-59); African American GFR (CKD) >90 (>60 ml/min/1.73 sqM); Albumin 4.4 g/dL (3.5-5.0); Alkaline Phosphatase 92 U/L (38-126); Anion Gap 8 mmol/L; Blood Urea Nitrogen 14 mg/dL (9-20); Calcium 9.3 mg/dL (8.4-10.2); Carbon Dioxide 20 mmol/L (22-30); Chloride 112 mmol/L (98-107); Glucose 177 mg/dL (74-99); Non-African American GFR(CKD) >90 (>60 ml/min/1.73 sqM); Sodium 140 mmol/L (137-145); Total Bilirubin 0.4 mg/dL (0.2-1.3); Total Protein 6.9 g/dL (6.3-8.2)
--- NOTE | 2024-03-28 09:17 | P.ANPRN ---
Procedure Note - Anesthesia - Nerve Block Performed Bilateral Erector Spinae Single Time Out Performed: Yes Date of Procedure: 03/28/24 Procedure Start Time: 08:49 Procedure Stop Time: 08:54 Location of Patient: PreOp Indication: Acute Post-Operative Pain, Analgesia, Requested by Surgeon Sedation Type: Sedate with meaningful contact maintained Preparation: Sterile Prep Position: Prone Catheter: None Needle Types: Pajunk Needle Gauge: 21 Ultrasound used to visualize needle placement: Yes Ultrasound used to observe medication spread: Yes Injectate: 0.5% Ropivacaine (see comment for volume) (Ropiv 15 ml+ decadron 4mg---Each side. Attempt X1.) Blood Aspirated: No Pain Paresthesia on Injection Noted: No Resistance on Injection: Normal Image Stored and Saved: Yes Events: Uneventful and Well Tolerated
[2024-03-28 09:23] LABS: Potassium 4.2 mmol/L (3.5-5.1)
[2024-03-28] MEDS ORDERED: SUCCINYLCHOLINE CHLORIDE 200 MG/10 ML VIAL IV ONE (09:28)
[2024-03-28] MEDS ORDERED: fentaNYL (PF) 50 MCG/ML 2 ML AMP ONE (09:28)
[2024-03-28] MEDS ORDERED: MIDAZOLAM 2 MG/2 ML VIAL ONE (09:28)
[2024-03-28] MEDS ORDERED: KETAMINE HCL IN 0.9 % NACL 50 MG/5 ML SYRINGE ONE (09:28)
[2024-03-28] MEDS ORDERED: LIDOCAINE 1% INJ 10MG/ML (20 ML MDV) ONE (09:28)
[2024-03-28] MEDS ORDERED: NEOSTIGMINE 1 MG/ML 10 ML VIAL ONE (09:28)
[2024-03-28] MEDS ORDERED: KETOROLAC 30 MG/ML 1 ML VIAL ONE (09:28)
[2024-03-28] MEDS ORDERED: PHENYLEPHRINE 10 MG/ML VIAL ONE (09:28)
[2024-03-28] MEDS ORDERED: ROPIVACAINE 5 MG/ML 30 ML VIAL ONE (09:28)
[2024-03-28] MEDS ORDERED: GLYCOPYRROLATE 0.2 MG/ML 2 ML VIAL ONE (09:28)
[2024-03-28] MEDS ORDERED: DEXAMETHASONE SOD PHOSPHATE 4 MG/ML 1 ML VIAL ONE (09:28)
[2024-03-28] MEDS ORDERED: ROCURONIUM 10 MG/ML (5 ML VIAL) IV ONE (09:28)
[2024-03-28] MEDS ORDERED: PROPOFOL 10 MG/ML 20 ML VIAL IV ONE (09:28)
[2024-03-28] MEDS: LIDOCAINE 1%-EPI 1:100,000 20 ML VIAL SQ ONE (09:46)
--- NOTE | 2024-03-28 10:26 | P.OP ---
Date of Procedure: 03/28/24 Preoperative Diagnosis: umbilical hernia Postoperative Diagnosis: incarcerated umbilical hernia Procedure(s) Performed: laparoscopic robotic-assisted repair of incarcerated umbilical hernia Partial omentectomy Tratransversus abdominis plane block Anesthesia: SAYRA Surgeon: Major Cardoso Estimated Blood Loss (ml): 5 Pathology: other (mentum/hernia sac) Condition: stable Disposition: PACU Description of Procedure: The patient was placed on the operating table in the supine position. He received general anesthesia. His abdomen was prepped and draped usual fashion. Using a 5 mm optical trocar under direct visualization the peritoneal cavity was entered in the left upper quadrant. The abdomen was then insufflated. The laparoscope was placed back into the perineal cavity. Next a 8 mm robotic trocar was placed in the left lower quadrant and a 12 mm robotic trocar was placed in the left lateral position. The original 5 mm trocar was exchanged for a 8 mm robotic trocar. A four-quadrant received hospital block was performed with 1% local Xylocaine. The patient's placed in the left side up position. And the patient was docked the robot. The umbilical hernia was visualized. Using hook cautery the peritoneum over the umbilical hernia was excised. the pressure omentum and hernia sac was dissected free sent to pathology.The fascial opening was repaired using 0V LOC suture. Next a piece of 11 cm round ventral light ST mesh was placed into the. Cavity and secured with 2 OV lock suture. The patient was undocked the robot. The needles were retrieved. The fascia of the 12 mm trocar site was closed with 0 Ethibond suture. Skin was closed interrupted 3-0 Monocryl suture. Dermabond dressings was applied. Patient top procedure well and was sent to recovery room stable condition.
[2024-03-28] MEDS: HYDROmorphone 0.5 MG/0.5 ML SYRINGE IVP PRN (11:02)
[2024-03-28 11:36] VITALS: TEMP 98
[2024-03-28] MEDS ORDERED: oxyCODONE-APAP 5-325MG 1 EACH TAB ONE (12:07)
[2024-03-28 12:15] LABS: Glucose,Whole Blood 240 mg/dL (70-110)
[2024-03-28] MEDS: LACTATED RINGERS 1,000 ML IV ONE (12:21)
[2024-03-28] MEDS: INSULIN ASPART (NovoLOG) 100 UNIT/ML VIAL SQ ONE (12:42)
[2024-03-28 15:32] VITALS: BP 110/78; PULSE 63
[2024-03-28] MEDS ORDERED: INSULIN ASPART (NovoLOG) 100 UNIT/ML VIAL SQ SCH (17:30)
== END 2024-03-28 15:17 | disposition home or self-care (01) ==
LOC: OR 07:33
PROVIDERS: ATTEND Surgery
DX: K42.0 Umbilical hernia with obstruction, without gangrene (principal); G89.18 Other acute postprocedural pain; I25.10 Atherosclerotic heart disease of native coronary artery without angina pectoris; I10 Essential (primary) hypertension; E78.5 Hyperlipidemia, unspecified; E11.9 Type 2 diabetes mellitus without complications; M19.90 Unspecified osteoarthritis, unspecified site; K21.9 Gastro-esophageal reflux disease without esophagitis; Z86.73 Personal history of transient ischemic attack (TIA), and cerebral infarction without residual deficits; Z79.84 Long term (current) use of oral hypoglycemic drugs; Z79.899 Other long term (current) drug therapy
CPT/HCPCS: 49592; S2900; 64999; 80053; 88302

== ENCOUNTER 2024-08-27 16:44 | Inpatient (IN) | payer OTHER, MEDICARE ==
--- NOTE | 2024-08-27 17:24 | ED ---
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 ketoacidosis, Hypokalemia Disposition: ADMITTED IP TO THIS HOSP Condition: Stable Referrals: [facility],Clinic [Primary Care Provider] - 1-2 days
[2024-08-27 18:49] LABS: Basophils % (A) 0 %; Eosinophils % (A) 0 %; HCT 44.9 % (39.0-53.0); Lymphocytes # (A) 0.8 k/uL (1.0-4.8); Lymphocytes % (A) 5 %; MCH 31.5 pg (25.0-35.0); MCHC 33.4 g/dL (31.0-37.0); MCV 94.3 fL (80.0-100.0); Mean Platelet Volume 7.8; Monocytes # (A) 0.8 k/uL (0-1.0); Monocytes % (A) 5 %; Neutrophils # (A) 13.8 k/uL (1.3-7.7); Neutrophils % (A) 90 %; Platelet Count 229 k/uL (150-450); RBC 4.76 m/uL (4.30-5.90); RDW 12.5 % (11.5-15.5); WBC 15.4 k/uL (3.8-10.6)
[2024-08-27 18:58] LABS: ALT 19 U/L (4-49); AST 26 U/L (17-59); African American GFR (CKD) >90 (>60 ml/min/1.73 sqM); Albumin 5.7 g/dL (3.5-5.0); Alkaline Phosphatase 117 U/L (38-126); Amylase 73 U/L (30-110); Anion Gap 27 mmol/L; Blood Urea Nitrogen 23 mg/dL (9-20); Calcium 11.1 mg/dL (8.4-10.2); Carbon Dioxide 12 mmol/L (22-30); Chloride 106 mmol/L (98-107); Glucose 257 mg/dL (74-99); Lipase 89 U/L (23-300); Non-African American GFR(CKD) >90 (>60 ml/min/1.73 sqM); Potassium 3.1 mmol/L (3.5-5.1); Sodium 145 mmol/L (137-145); Total Bilirubin 0.8 mg/dL (0.2-1.3); Total Protein 8.4 g/dL (6.3-8.2)
--- NOTE | 2024-08-27 19:19 | XR ---
EXAMINATION TYPE: XR chest 2V DATE OF EXAM: 08/27/2024 COMPARISON: 03/26/2019 HISTORY: 69-year-old male vomiting and epigastric pain TECHNIQUE: AP and lateral views FINDINGS: Heart normal size. Aorta and pulmonary vasculature within normal limits. No consolidation or pleural effusion. Moderate degenerative disc disease midthoracic spine. IMPRESSION: No acute cardiopulmonary process. [facility], , 08/27/2024 7:16 PM
[2024-08-27 19:52] LABS: Appearance,Urine Clear (Clear); Bilirubin,Urine Negative (Negative); Blood,Urine Negative (Negative); Color,Urine Colorless; Glucose,Urine (UA) 4+ (Negative); Hyaline Casts,Urine 4 /lpf (0-2); Leukocyte Esterase,Urine Negative (Negative); Mucus,Urine Rare /hpf; Nitrite,Urine Negative (Negative); PH, Urine 5.5 (5.0-8.0); Protein,Urine 1+ (Negative); RBC,Urine <1 /hpf (0-5); Specific Gravity,Urine 1.019 (1.001-1.035); Urobilinogen,Urine <2.0 mg/dL (<2.0); WBC,Urine <1 /hpf (0-5)
[2024-08-27] MEDS: SODIUM CHLORIDE 0.9% 1,000 ML IV ONE ×2 (20:07→21:19)
[2024-08-27] MEDS: MORPHINE SULFATE 4 MG/ML SYRINGE IVP STA (20:08)
[2024-08-27 20:09] LABS: Ketones,Urine 4+ (Negative)
[2024-08-27] MEDS: PANTOPRAZOLE 40 MG/10 ML VIAL IVP ONE (20:12)
[2024-08-27] MEDS: POTASSIUM CHLORIDE 20 MEQ in WATER FOR INJECTION 1 100ML.BAG IVPB STA (20:17)
[2024-08-27] MEDS: metroNIDAZOLE-NS PMX 500 MG in SALINE 1 100ML.BAG IVPB SCH (21:19)
[2024-08-27] MEDS ORDERED: ALPRAZolam 0.25 MG TAB PO PRN (21:23)
[2024-08-27] MEDS ORDERED: NALOXONE 0.4 MG/ML 1 ML VIAL IV PRN (21:23)
--- NOTE | 2024-08-27 21:26 | CT ---
EXAMINATION TYPE: CT abdomen pelvis w con DATE OF EXAM: 08/27/2024 COMPARISON: 11/30/2014 HISTORY: 69-year-old male with abdominal pain and vomiting TECHNIQUE: Contiguous axial scanning of the abdomen and pelvis following administration of 100 ml Iso vasquez 300 IV contrast. Delayed images through the kidneys and coronal/sagittal reconstructions perform ed. CT DLP: 956 mGycm Automated exposure control for dose reduction was used. FINDINGS: Heart normal size without pericardial effusion. Extensive coronary artery calcifications ar e present. Strandy atelectasis or scarring in the lower lungs. There is severe fluid distention of the stomach and proximal duodenum with transition point at the se cond portion of the duodenum where there appears to be heterogeneous soft tissue thickening, axial im age 37 and sagittal image 63. In addition, there appears to be a small bowel malrotation with jejunal loops located in the right si de of the abdomen. The small bowel is largely collapsed as is the colon. Adrenal glands and spleen within normal limits. Pancreas appears atrophic, similar to the previous 20 15 exam. Bilateral renal cortical cysts measuring up to 4.2 cm. Cortical scarring left kidney 1.1 cm nonobstru cting left renal stone. Otherwise, there is symmetric uptake and excretion of contrast from the kidne ys. Moderate atherosclerotic calcifications abdominal aorta and iliac arteries. Bladder urine distended. Prostate gland enlargement 4.4 cm with central calcifications. Pelvic phlebo lith. No abnormal fluid collection in the pelvis or pelvic lymphadenopathy. Bones: Moderate to severe degenerative disc disease mid to lower lumbar spine. Advanced hypertrophic facet arthropathy. Degenerative grade 1 anterolisthesis L4-L5. IMPRESSION: 1. SEVERE FLUID DISTENTION OF STOMACH AND PROXIMAL DUODENUM SUGGESTING OBSTRUCTION. THERE APPEARS TO BE A TRANSITION POINT AT THE SECOND PORTION OF THE DUODENUM WHERE HETEROGENEOUS SOFT TISSUE THICKENIN G IS PRESENT (AXIAL IMAGE 37 AND SAGITTAL IMAGE 63). UNCLEAR IF THIS CORRESPONDS TO NARROWING SECONDA RY TO INFLAMMATION SUCH FROM PEPTIC ULCER DISEASE VERSUS UNDERLYING NEOPLASM (DUODENAL ADENOCARCIN RICKY OR LESS LIKELY INVADING PANCREATIC HEAD MASS). 2. THERE APPEARS TO BE CONCURRENT ANATOMIC VARIATION WITH SMALL BOWEL MALROTATION. 3. EXTENSIVE CORONARY ARTERY CALCIFICATIONS. [facility], , 08/27/2024 9:23 PM
--- NOTE | 2024-08-27 22:01 | XR ---
EXAMINATION TYPE: XR chest 1V confirm line [place] DATE OF EXAM: 08/27/2024 COMPARISON: 08/27/2024 HISTORY: 69-year-old male NG tube placement TECHNIQUE: Single frontal view of the chest is obtained. FINDINGS: NG tube tip is located below the diaphragm. The sidehole is not well seen. It may need sli ght further advancement. Heart normal size. Low lung volumes with crowded vascular markings. No karlos consolidation or pleural effusion. IMPRESSION: The NG tube tip is located below the diaphragm. However, the sidehole is not well seen. It may need s light further advancement. [facility], , 08/27/2024 9:58 PM
[2024-08-27 22:04] LABS: Glucose,Whole Blood 235 mg/dL (70-110)
[2024-08-27] MEDS: HYDROmorphone 1 MG/ML 1 ML SYRINGE IVP PRN (22:08)
[2024-08-27] MEDS: DEXTROSE 5%-0.45% NACL 1,000 ML IV ONE (22:13)
[2024-08-27] MEDS: INSULIN ASPART (NovoLOG) 100 UNIT/ML VIAL SQ SCH (22:14)
[2024-08-27 22:17] LABS: VBG PH 7.39 (7.31-7.41)
[2024-08-27] MEDS: SODIUM CHLORIDE 0.9% 1,000 ML IV SCH ×2 (22:34)
[2024-08-27 22:37] LABS: VBG PH 7.36 (7.31-7.41)
[2024-08-27 23:34] LABS: Glucose,Whole Blood 230 mg/dL (70-110)
[2024-08-27] MEDS: CEFEPIME 2 GM in SODIUM CHLORIDE 0.9% 100 ML IVPB SCH (23:36)
[2024-08-27] MEDS: INSULIN DETEMIR (LEVEMIR) 100 UNIT/ML SYR SQ SCH (23:39)
[2024-08-28] MEDS: ONDANSETRON 4 MG/2 ML VIAL IVP PRN (00:20)
[2024-08-28] MEDS: QUEtiapine 200 MG TAB PO SCH (00:49)
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
[2024-08-28 00:56] LABS: African American GFR (CKD) >90 (>60 ml/min/1.73 sqM); Anion Gap 16 mmol/L; Blood Urea Nitrogen 21 mg/dL (9-20); Calcium 9.4 mg/dL (8.4-10.2); Carbon Dioxide 13 mmol/L (22-30); Chloride 111 mmol/L (98-107); Glucose 217 mg/dL (74-99); Non-African American GFR(CKD) >90 (>60 ml/min/1.73 sqM); Potassium 3.1 mmol/L (3.5-5.1); Sodium 140 mmol/L (137-145)
[2024-08-28] MEDS: POTASSIUM CHLORIDE ER 20 MEQ TAB.ER PO SCH (02:16)
[2024-08-28] MEDS: POTASSIUM CHLORIDE 10 MEQ in WATER FOR INJECTION 1 100ML.BAG IVPB SCH ×2 (02:50→17:21)
[2024-08-28 06:36] LABS: African American GFR (CKD) >90 (>60 ml/min/1.73 sqM); Anion Gap 7 mmol/L; Blood Urea Nitrogen 24 mg/dL (9-20); Calcium 8.9 mg/dL (8.4-10.2); Carbon Dioxide 18 mmol/L (22-30); Chloride 114 mmol/L (98-107); Glucose 149 mg/dL (74-99); Non-African American GFR(CKD) >90 (>60 ml/min/1.73 sqM); Potassium 3.3 mmol/L (3.5-5.1); Sodium 139 mmol/L (137-145)
[2024-08-28 07:24] LABS: Basophils % (A) 0 %; Eosinophils % (A) 0 %; HCT 32.9 % (39.0-53.0); Lymphocytes # (A) 0.7 k/uL (1.0-4.8); Lymphocytes % (A) 7 %; MCH 32.5 pg (25.0-35.0); MCHC 34.4 g/dL (31.0-37.0); MCV 94.5 fL (80.0-100.0); Mean Platelet Volume 7.7; Monocytes # (A) 0.7 k/uL (0-1.0); Monocytes % (A) 7 %; Neutrophils # (A) 8.8 k/uL (1.3-7.7); Neutrophils % (A) 85 %; Platelet Count 189 k/uL (150-450); RBC 3.48 m/uL (4.30-5.90); RDW 12.6 % (11.5-15.5); WBC 10.3 k/uL (3.8-10.6)
[2024-08-28 07:25] LABS: HGB 11.3 gm/dL (13.0-17.5)
[2024-08-28] MEDS ORDERED: INSULIN ASPART (NovoLOG) 100 UNIT/ML VIAL SQ SCH (07:30)
[2024-08-28 07:36] LABS: Glucose,Whole Blood 158 mg/dL (70-110)
--- NOTE | 2024-08-28 09:14 | XR ---
EXAMINATION TYPE: XR chest 1V portable DATE OF EXAM: 08/28/2024 HISTORY: Shortness of breath. COMPARISON: 08/27/2024 TECHNIQUE: Single view of the chest is submitted. FINDINGS: Demonstrated are scattered senescent parenchymal change. NG tube is seen coursing into the stomach. There is no evidence for focal infiltrate. Discoid atelectasis right medial lung base. The heart is stable. Hilar and mediastinal structures are within normal limits. Degenerative changes are seen of the dorsal spine. IMPRESSION: 1. Chronic changes without evidence for acute pulmonary disease. [facility], , 08/28/2024 9:12 AM
[2024-08-28] MEDS: DOXAZOSIN 4 MG TAB PO SCH (10:06)
[2024-08-28] MEDS: METOPROLOL SUCCINATE (ER) 100 MG TAB.ER.24H PO SCH (10:06)
[2024-08-28] MEDS: lisinopriL 20 MG TAB PO SCH (10:06)
[2024-08-28] MEDS: ROSUVASTATIN CALCIUM 5 MG PO SCH (10:09)
[2024-08-28 11:57] LABS: Glucose,Whole Blood 160 mg/dL (70-110)
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
[2024-08-28] MEDS: SODIUM CHLORIDE 0.9% 1,000 ML IV ONE (13:17)
[2024-08-28] MEDS ORDERED: PROPOFOL 10 MG/ML 20 ML VIAL IV ONE (13:19)
[2024-08-28] MEDS ORDERED: LIDOCAINE 1% INJ 10MG/ML (20 ML MDV) ONE (13:19)
--- NOTE | 2024-08-28 13:32 | P.OP ---
Date of Procedure: 08/28/24 Preoperative Diagnosis: Gastric outlet obstruction Postoperative Diagnosis: Peptic ulcer disease of duodenum Esophagitis Procedure(s) Performed: EGD Anesthesia: MAC Surgeon: Major Cardoso Pathology: other (Antrum, esophagus) Condition: stable Disposition: PACU Description of Procedure: The patient was placed on the endoscopy table in the lateral position. She received IV sedation. The gas was placed oropharynx passed in the esophagus and into the stomach. Scope was placed through the pylorus. In the second portion duodenum no evidence of significant peptic ulcer disease. There was many punctate little ulcers. This area was biopsied. The scope was then brought back to the stomach. The antrum appeared normal. Scope was then retroflexed remainder the stomach appeared normal. The GE junction was at 40 cm. The distal esophagus appeared inflamed. A biopsy was performed. The proximal esophagus appeared normal. Scope withdrawn for the patient.
[2024-08-28 15:12] LABS: Glucose,Whole Blood 141 mg/dL (70-110)
[2024-08-28] MEDS: METOPROLOL TARTRATE 5 MG/5 ML VIAL IVP PRN (16:46)
[2024-08-28 17:37] LABS: Glucose,Whole Blood 168 mg/dL (70-110)
--- NOTE | 2024-08-28 17:51 | P.PN ---
Subjective Progress Note Date: 08/28/24 Hospital course: Patient is a very pleasant 69-year-old male with a past medical history of CAD with stents, status post stenting, hypertension, hyperlipidemia, [id number] diabetes mellitus, iron deficiency anemia, and gastric outlet obstruction with previous surgical repair requiring balloon dilation of small bowels. He presented to the hospital on 08/27/2024 secondary to reports of abdominal pain, nausea, and vomiting. Patient reports he has also had a decreased appetite and unable to hold anything down for 6 days secondary to worsening pain with intake. Upon arrival to our facility, patient underwent evaluation in the emergency department. Signs upon arrival show blood pressure 156/90, heart rate 103, respiratory rate 18, temp 97.7 F, and SpO2 of 99% on room air. EKG completed showing sinus rhythm at 99 bpm with occasional PAC and T wave inversion in inferior lateral leads which is a new finding when compared to EKG completed 03/20/2024. Labs completed and reviewed. CBC showing leukocytosis with WBC count of 15.4 otherwise normal findings. BMP showing hyponatremia with sodium of 3.1 and high anion gap metabolic acidosis with chloride of 106, bicarb of 12, and anion gap of 27. Blood glucose was 257. Lactic acid 3.6. Calcium slightly high at 11.1. Liver profile normal findings. Amylase and lipase also normal findings. Troponin 0.013 and 0.029. Stool occult was positive. Urinalysis was positive for protein, ketones, and glucose and acetone was also positive. Physical exam: Patient was seen and fully evaluated at bedside this morning. He was awaiting to be taken down for EGD. He currently reports feeling much better. Patient reports he is no longer experiencing any nausea or vomiting and states abdominal pain significantly improved almost immediately after insertion of NG tube. Patient denies having any other complaints at this time including headache, lightheadedness, dizziness, chest pain, palpitations, or shortness of breath. Vital signs reviewed and stable. General: Nontoxic, no distress and appears stated age. Derm: Skin warm and dry, normal coloration for ethnicity. Head: Atraumatic, normocephalic and symmetric. Eyes: EOM's intact, no lid lag, and anicteric sclera Mouth: no lip lesions, mucus membranes moist Cardiovascular: regular rate and rhythm with normal S1S2, systolic murmur, and cap refill < 2 seconds. Lungs: Respirations even, regular, and unlabored on room air. Lungs CTA bilaterally, no rhonchi, no rales, no wheezing, and no accessory muscle usage. Abdominal: soft, diffuse tenderness upon palpation, no guarding, no appreciable organomegaly. NG tube in place to low intermittent suction. Ext: Movement and sensation intact. No gross muscle atrophy, no edema, no contractures. Patient with left BKA. Neuro: Speech clear, face symmetrical and CN II-XII grossly intact with no noted focal neuro deficits Psych: Alert and oriented to person, place, time, and situation. Appropriate and pleasant affect. Assessment and Plan of Care: Small bowel obstruction with history of gastric outlet obstruction requiring surgical repair with balloon dilations Coffee-ground emesis Normocytic anemia -Patient admitted under general surgery team and scheduled to undergo EGD at 1130 this morning. -Maintain NG tube to low intermittent suction. -Protonix 40 mg IVP twice daily -Repeat hemoglobin this evening and again continue to monitor closely. -Telemetry monitoring -Patient did have hemoglobin drop from 15.0 down to 11.3, however he does have a history of iron deficiency anemia and current drop in hemoglobin is suspected to be secondary to initial hemoglobin being hemoconcentrated as WBC count hemoglobin, and platelet count are all decreased along with sodium levels with IV fluid hydration. -Continue gentle IV fluid hydration with 0.9% normal saline at 100 cc/h. Severe dehydration with high anion gap metabolic acidosis, secondary to starvation ketosis Hypokalemia Lactic Acidosis -Patient reports unable to tolerate oral intake x 6 days prior to admission. -Metabolic acidosis resolving and anion gap closing status post administration of 2 L bolus followed by maintenance infusion. -Lactic acidosis resolved with fluid hydration. -Potassium was replaced. Continue to monitor electrolytes closely with repeat a.m. labs. -DVT prophylaxis with SCDs. History of CAD previous stenting of LAD Hypertension EKG changes -Patient has a history of CAD and currently denies cardiac complaints at this time including chest pain, palpitations, or shortness of breath. -Hold aspirin and Plavix at this time secondary to coffee-ground emesis, plans for EGD later today and possible surgical intervention for small bowel obstruction. -Will repeat EKG -Patient to remain on telemetry monitoring, if any changes or patient develops cardiac complaints will need cardiology consultation. -Patient to otherwise continue cardiac medication regimen with amlodipine 10 mg nightly, lisinopril 40 mg daily, metoprolol 100 mg daily, and rosuvastatin 5 mg daily. Data and imaging reviewed: -Morning labs reviewed CBC showing WBC count decreasing from 15.4 down to 10.3, hemoglobin from 15.0 down to 11.3, platelet count decreasing from 229 down to 189. BMP showing hypokalemia with potassium of 3.3 and improvement of high anion gap metabolic acidosis with anion gap closing from 27 down to 7 and chloride 114, bicarb 118. Renal function stable with BUN of 24, creatinine of 0.59, GFR greater than 90. Blood glucose 149. -Vital signs reviewed. Blood pressure 141/87, heart rate 86, respiratory rate 18, and SpO2 of 96% on room air. Orders placed for repeat EKG, will repeat CBC later this evening after EGD and again tomorrow morning and continue to monitor electrolytes with repeat morning BMP and magnesium. Thank you for allowing us to participate in the care of this pleasant patient. Do not hesitate to contact us with questions. Someone can be reached from the [facility] hospitalist group all hours of the day at [phone] or via [employer]. Patient was seen independently by Nurse Pracitioner. This document was prepared using [employer] dictation software. Please allow for errors in hematology technician, while rare they do occur. I reviewed the documentation as provided by the DARSHANA above, who is the original author of this note. I agree with the documented assessment and plan, with the following changes: none Objective - Vital Signs Vital signs: Vital Signs Temp 98.7 F 08/27/24 18:50 Pulse 86 08/28/24 06:00 Resp 18 08/28/24 06:00 BP 141/87 08/28/24 06:00 Pulse Ox 99 08/27/24 20:05 FiO2 Intake & Output 08/27/24 08/28/24 08/28/24 18:59 06:59 18:59 Weight 77.111 kg - Labs CBC & Chem 7: 08/28/24 17:52 08/28/24 06:00 Labs: Abnormal Lab Results - Last 24 Hours (Table) 08/27/24 08/27/24 08/27/24 Range/Units 17:22 17:22 17:22 WBC 15.4 H (3.8-10.6) k/uL RBC (4.30-5.90) m/uL Hgb (13.0-17.5) gm/dL Hct (39.0-53.0) % Neutrophils # 13.8 H (1.3-7.7) k/uL Lymphocytes # 0.8 L (1.0-4.8) k/uL VBG pCO2 (37-51) mmHg VBG HCO3 (24-28) mmol/L Potassium 3.1 L (3.5-5.1) mmol/L Chloride (98-107) mmol/L Carbon Dioxide 12 L (22-30) mmol/L BUN 23 H (9-20) mg/dL Creatinine (0.66-1.25) mg/dL Glucose 257 H (74-99) mg/dL POC Glucose (mg/dL) (70-110) mg/dL Hemoglobin A1c (<=6.0) % Plasma Lactic Acid Teja 3.1 H* (0.7-2.0) mmol/L Calcium 11.1 H (8.4-10.2) mg/dL Total Protein 8.4 H (6.3-8.2) g/dL Albumin 5.7 H (3.5-5.0) g/dL Urine Protein (Negative) Urine Glucose (UA) (Negative) Urine Ketones (Negative) Hyaline Casts (0-2) /lpf Urine Mucus (None) /hpf 08/27/24 08/27/24 08/27/24 Range/Units 19:42 20:26 21:14 WBC (3.8-10.6) k/uL RBC (4.30-5.90) m/uL Hgb (13.0-17.5) gm/dL Hct (39.0-53.0) % Neutrophils # (1.3-7.7) k/uL Lymphocytes # (1.0-4.8) k/uL VBG pCO2 28 L (37-51) mmHg VBG HCO3 17 L (24-28) mmol/L Potassium (3.5-5.1) mmol/L Chloride (98-107) mmol/L Carbon Dioxide (22-30) mmol/L BUN (9-20) mg/dL Creatinine (0.66-1.25) mg/dL Glucose (74-99) mg/dL POC Glucose (mg/dL) (70-110) mg/dL Hemoglobin A1c (<=6.0) % Plasma Lactic Acid Teja 3.6 H* (0.7-2.0) mmol/L Calcium (8.4-10.2) mg/dL Total Protein (6.3-8.2) g/dL Albumin (3.5-5.0) g/dL Urine Protein 1+ H (Negative) Urine Glucose (UA) 4+ H (Negative) Urine Ketones 4+ H (Negative) Hyaline Casts 4 H (0-2) /lpf Urine Mucus Rare H (None) /hpf 08/27/24 08/27/24 08/27/24 Range/Units 22:02 22:27 22:27 WBC (3.8-10.6) k/uL RBC (4.30-5.90) m/uL Hgb (13.0-17.5) gm/dL Hct (39.0-53.0) % Neutrophils # (1.3-7.7) k/uL Lymphocytes # (1.0-4.8) k/uL VBG pCO2 26 L (37-51) mmHg VBG HCO3 14 L (24-28) mmol/L Potassium (3.5-5.1) mmol/L Chloride (98-107) mmol/L Carbon Dioxide (22-30) mmol/L BUN (9-20) mg/dL Creatinine (0.66-1.25) mg/dL Glucose (74-99) mg/dL POC Glucose (mg/dL) 235 H (70-110) mg/dL Hemoglobin A1c (<=6.0) % Plasma Lactic Acid Teja 2.2 H* (0.7-2.0) mmol/L Calcium (8.4-10.2) mg/dL Total Protein (6.3-8.2) g/dL Albumin (3.5-5.0) g/dL Urine Protein (Negative) Urine Glucose (UA) (Negative) Urine Ketones (Negative) Hyaline Casts (0-2) /lpf Urine Mucus (None) /hpf 08/27/24 08/28/24 08/28/24 Range/Units 23:31 00:13 06:00 WBC (3.8-10.6) k/uL RBC 3.48 L (4.30-5.90) m/uL Hgb 11.3 L D (13.0-17.5) gm/dL Hct 32.9 L (39.0-53.0) % Neutrophils # 8.8 H (1.3-7.7) k/uL Lymphocytes # 0.7 L (1.0-4.8) k/uL VBG pCO2 (37-51) mmHg VBG HCO3 (24-28) mmol/L Potassium 3.1 L (3.5-5.1) mmol/L Chloride 111 H (98-107) mmol/L Carbon Dioxide 13 L (22-30) mmol/L BUN 21 H (9-20) mg/dL Creatinine 0.61 L (0.66-1.25) mg/dL Glucose 217 H (74-99) mg/dL POC Glucose (mg/dL) 230 H (70-110) mg/dL Hemoglobin A1c (<=6.0) % Plasma Lactic Acid Teja (0.7-2.0) mmol/L Calcium (8.4-10.2) mg/dL Total Protein (6.3-8.2) g/dL Albumin (3.5-5.0) g/dL Urine Protein (Negative) Urine Glucose (UA) (Negative) Urine Ketones (Negative) Hyaline Casts (0-2) /lpf Urine Mucus (None) /hpf 08/28/24 08/28/24 08/28/24 Range/Units 06:00 06:00 07:28 WBC (3.8-10.6) k/uL RBC (4.30-5.90) m/uL Hgb (13.0-17.5) gm/dL Hct (39.0-53.0) % Neutrophils # (1.3-7.7) k/uL Lymphocytes # (1.0-4.8) k/uL VBG pCO2 (37-51) mmHg VBG HCO3 (24-28) mmol/L Potassium 3.3 L (3.5-5.1) mmol/L Chloride 114 H (98-107) mmol/L Carbon Dioxide 18 L (22-30) mmol/L BUN 24 H (9-20) mg/dL Creatinine 0.59 L (0.66-1.25) mg/dL Glucose 149 H (74-99) mg/dL POC Glucose (mg/dL) 158 H (70-110) mg/dL Hemoglobin A1c 6.4 H (<=6.0) % Plasma Lactic Acid Teja (0.7-2.0) mmol/L Calcium (8.4-10.2) mg/dL Total Protein (6.3-8.2) g/dL Albumin (3.5-5.0) g/dL Urine Protein (Negative) Urine Glucose (UA) (Negative) Urine Ketones (Negative) Hyaline Casts (0-2) /lpf Urine Mucus (None) /hpf
[2024-08-28 18:15] LABS: Basophils % (A) 0 %; Eosinophils % (A) 0 %; HGB 10.5 gm/dL (13.0-17.5); Lymphocytes # (A) 0.7 k/uL (1.0-4.8); Lymphocytes % (A) 6 %; MCH 31.2 pg (25.0-35.0); MCHC 31.8 g/dL (31.0-37.0); MCV 98.1 fL (80.0-100.0); Mean Platelet Volume 7.7; Monocytes # (A) 0.6 k/uL (0-1.0); Monocytes % (A) 5 %; Neutrophils # (A) 9.8 k/uL (1.3-7.7); Neutrophils % (A) 87 %; Platelet Count 176 k/uL (150-450); RBC 3.36 m/uL (4.30-5.90); RDW 12.8 % (11.5-15.5); WBC 11.2 k/uL (3.8-10.6)
[2024-08-28 20:16] LABS: Glucose,Whole Blood 135 mg/dL (70-110)
[2024-08-28] MEDS ORDERED: QUEtiapine 200 MG TAB PO SCH (21:00)
[2024-08-28] MEDS ORDERED: amLODIPine 10 MG TAB PO SCH (21:00)
--- NOTE | 2024-08-28 21:35 | XR ---
EXAMINATION TYPE: XR chest 1V portable DATE OF EXAM: 08/28/2024 9:12 PM CLINICAL INDICATION: Male, 69 years old with history of check NG tube placement; [facility] COMPARISON: Chest radiographs from 08/28/2024 TECHNIQUE: XR chest 1V portable Frontal view of the chest. FINDINGS: Lungs/Pleura: There is no evidence of pleural effusion, focal consolidation, or pneumothorax. Pulmonary vascularity: Unremarkable. Heart/mediastinum: Cardiomediastinal silhouette is unremarkable. Musculoskeletal: No acute osseous pathology. Other findings: None Lines/Tubes: Nasogastric tube is seen in the mid esophagus where it abruptly changes course and starts coursing gregorio periorly . IMPRESSION: Nasogastric tube curled up and distal tip courses superiorly. Complete removal and replacement recomm ended. [facility] Cynthia Florentino, , 08/28/2024 9:33 PM
[2024-08-28] MEDS: amLODIPine 10 MG TAB NG-TUBE SCH (22:26)
[2024-08-28] MEDS: PANTOPRAZOLE 40 MG/10 ML VIAL IVP SCH (22:27)
[2024-08-28] MEDS: QUEtiapine 200 MG TAB NG-TUBE SCH (22:27)
--- NOTE | 2024-08-29 00:56 | XR ---
EXAM: XR Chest, 1 View CLINICAL HISTORY: NG tube placement TECHNIQUE: Frontal view of the chest. COMPARISON: 08/28/2024. FINDINGS: Limited examination. NG tube tip and side-port are within the left upper quadrant/stomach. Otherwise no change.. IMPRESSION: NG tube tip in the left upper quadrant/ stomach.
[2024-08-29 06:04] LABS: Glucose,Whole Blood 146 mg/dL (70-110)
[2024-08-29 08:33] LABS: HCT 28.6 % (39.6-50.0); HGB 9.2 g/dL (13.0-17.0); MCHC 32.2 g/dL (32.0-37.0); MCV 96.3 FL (80.0-97.0); Mean Platelet Volume 10.4 FL (9.5-12.2); NRBC Per 100 WBC 0 X 10*3/uL (0.00-0.01); Platelet Count 152 X 10*3/uL (140-440); RBC 2.97 X 10*6/uL (4.40-5.60); RDW 12.5 % (11.5-14.5); WBC 8.93 X 10*3/uL (4.50-10.00)
[2024-08-29 08:50] LABS: ALT 16 U/L (10-49); AST 35 U/L (14-35); Albumin/Globulin Ratio 2.35 Ratio (1.60-3.17); Alkaline Phosphatase 73 U/L (41-126); Blood Urea Nitrogen 16.9 mg/dL (9.0-27.0); Carbon Dioxide 17.2 mmol/L (21.6-31.8); Chloride 111 mmol/L (96-109); Globulin 1.7 g/dL (1.6-3.3); Glucose 133 mg/dL (70-110); Magnesium 1.7 mg/dL (1.5-2.4); Potassium 2.9 mmol/L (3.5-5.5); Sodium 144 mmol/L (135-145); Total Bilirubin <0.2 mg/dL (0.3-1.2); Total Protein 5.7 g/dL (6.2-8.2)
[2024-08-29] MEDS: POTASSIUM CHLORIDE ER 20 MEQ TAB.ER PO SCH (09:32)
[2024-08-29 10:48] LABS: African American GFR (CKD) >90 (>60 ml/min/1.73 sqM); Anion Gap 13 mmol/L; Blood Urea Nitrogen 15 mg/dL (9-20); Calcium 9.2 mg/dL (8.4-10.2); Carbon Dioxide 17 mmol/L (22-30); Chloride 112 mmol/L (98-107); Glucose 143 mg/dL (74-99); Non-African American GFR(CKD) >90 (>60 ml/min/1.73 sqM); Potassium 2.8 mmol/L (3.5-5.1); Sodium 142 mmol/L (137-145)
[2024-08-29] MEDS: PROCHLORPERAZINE INJ 10 MG/2 ML VIAL IVP PRN (11:00)
[2024-08-29 12:30] LABS: African American GFR (CKD) >90 (>60 ml/min/1.73 sqM); Anion Gap 11 mmol/L; Blood Urea Nitrogen 15 mg/dL (9-20); Calcium 9.1 mg/dL (8.4-10.2); Carbon Dioxide 19 mmol/L (22-30); Chloride 111 mmol/L (98-107); Glucose 141 mg/dL (74-99); Non-African American GFR(CKD) >90 (>60 ml/min/1.73 sqM); Potassium 2.9 mmol/L (3.5-5.1); Sodium 141 mmol/L (137-145)
[2024-08-29 12:35] LABS: Glucose,Whole Blood 147 mg/dL (70-110)
--- NOTE | 2024-08-29 15:08 | P.PN ---
Subjective Progress Note Date: 08/29/24 CHIEF COMPLAINT: Gastric outlet obstruction HISTORY OF PRESENT ILLNESS: Patient status post EGD that reported peptic ulcer disease of the duodenum and esophagitis. Patient continues to have NG tube in place and remains NPO. Patient's potassium remains low even after replacement. Surgery for today has been canceled due to the hypokalemia. 900 mL output through NG tube. Potassium 2.8 repeat potassium 2.9 magnesium 1.7 PHYSICAL EXAM: VITAL SIGNS: Reviewed. GENERAL: Well-developed in no acute distress. ABDOMEN: Soft. Tenderness palpation across the upper abdomen NEUROLOGIC: Alert and oriented. Cranial nerves II through XII grossly intact. ASSESSMENT: 1. Peptic ulcer disease of the duodenum and esophagitis 2. Hypokalemia and hypomagnesemia PLAN: -Patient rescheduled for gastrojejunostomy tomorrow with Dr. Cardoso -Continue to correct potassium. Repeat potassium levels ordered for 6 PM, 9 PM, midnight and 4 AM. Will replace potassium as needed -Keep patient n.p.o. -continue IV Protonix -Continue IV fluid Physician Placing Judge note has been reviewed by physician. Signing provider agrees with the documented findings, assessment, and plan of care. Objective - Vital Signs Vital signs: Vital Signs Temp 99.2 F 08/29/24 07:10 Pulse 83 08/29/24 07:10 Resp 16 08/29/24 07:10 BP 166/78 08/29/24 07:10 Pulse Ox 98 08/29/24 07:10 FiO2 Intake & Output 08/28/24 08/29/24 08/29/24 18:59 06:59 18:59 Intake Total 200 Output Total 2275 600 250 Balance -[id number] 250 Weight 77.111 kg Intake: IV 200 Output: Gastric Drainage 900 Urine 1375 600 250 Other: Voiding Method Urinal Urinal - Labs CBC & Chem 7: 08/29/24 04:41 08/29/24 11:51 Labs: Abnormal Lab Results - Last 24 Hours (Table) 08/28/24 08/28/24 08/28/24 Range/Units 15:11 17:32 17:52 WBC 11.2 H (3.8-10.6) k/uL RBC 3.36 L (4.30-5.90) m/uL Hgb 10.5 L (13.0-17.5) gm/dL Hct 33.0 L (39.0-53.0) % Neutrophils # 9.8 H (1.3-7.7) k/uL Lymphocytes # 0.7 L (1.0-4.8) k/uL Potassium (3.5-5.5) mmol/L Chloride (96-109) mmol/L Carbon Dioxide (21.6-31.8) mmol/L Anion Gap (4.00-12.00) mmol/L Creatinine (0.6-1.5) mg/dL BUN/Creatinine Ratio (12.00-20.00) Ratio Glucose (70-110) mg/dL POC Glucose (mg/dL) 141 H 168 H (70-110) mg/dL Total Bilirubin (0.3-1.2) mg/dL Total Protein (6.2-8.2) g/dL 08/28/24 08/29/24 08/29/24 Range/Units 20:15 04:41 04:41 WBC (3.8-10.6) k/uL RBC 2.97 L (4.30-5.90) m/uL Hgb 9.2 L (13.0-17.5) gm/dL Hct 28.6 L (39.0-53.0) % Neutrophils # (1.3-7.7) k/uL Lymphocytes # (1.0-4.8) k/uL Potassium 2.9 L (3.5-5.5) mmol/L Chloride 111 H (96-109) mmol/L Carbon Dioxide 17.2 L (21.6-31.8) mmol/L Anion Gap 15.80 H (4.00-12.00) mmol/L Creatinine 0.5 L (0.6-1.5) mg/dL BUN/Creatinine Ratio 33.80 H (12.00-20.00) Ratio Glucose 133 H (70-110) mg/dL POC Glucose (mg/dL) 135 H (70-110) mg/dL Total Bilirubin <0.2 L (0.3-1.2) mg/dL Total Protein 5.7 L (6.2-8.2) g/dL 08/29/24 08/29/24 08/29/24 Range/Units 05:59 10:14 11:51 WBC (3.8-10.6) k/uL RBC (4.30-5.90) m/uL Hgb (13.0-17.5) gm/dL Hct (39.0-53.0) % Neutrophils # (1.3-7.7) k/uL Lymphocytes # (1.0-4.8) k/uL Potassium 2.8 L 2.9 L (3.5-5.5) mmol/L Chloride 112 H 111 H (96-109) mmol/L Carbon Dioxide 17 L 19 L (21.6-31.8) mmol/L Anion Gap (4.00-12.00) mmol/L Creatinine 0.49 L 0.53 L (0.6-1.5) mg/dL BUN/Creatinine Ratio (12.00-20.00) Ratio Glucose 143 H 141 H (70-110) mg/dL POC Glucose (mg/dL) 146 H (70-110) mg/dL Total Bilirubin (0.3-1.2) mg/dL Total Protein (6.2-8.2) g/dL 08/29/24 Range/Units 12:33 WBC (3.8-10.6) k/uL RBC (4.30-5.90) m/uL Hgb (13.0-17.5) gm/dL Hct (39.0-53.0) % Neutrophils # (1.3-7.7) k/uL Lymphocytes # (1.0-4.8) k/uL Potassium (3.5-5.5) mmol/L Chloride (96-109) mmol/L Carbon Dioxide (21.6-31.8) mmol/L Anion Gap (4.00-12.00) mmol/L Creatinine (0.6-1.5) mg/dL BUN/Creatinine Ratio (12.00-20.00) Ratio Glucose (70-110) mg/dL POC Glucose (mg/dL) 147 H (70-110) mg/dL Total Bilirubin (0.3-1.2) mg/dL Total Protein (6.2-8.2) g/dL
--- NOTE | 2024-08-29 15:56 | P.PN ---
Subjective Progress Note Date: 08/29/24 Hospital course: Patient is a very pleasant 69-year-old male with a past medical history of CAD with stents, status post stenting, hypertension, hyperlipidemia, rij-qhqppow-jqkyncaev diabetes mellitus, iron deficiency anemia, and gastric outlet obstruction with previous surgical repair requiring balloon dilation of small bowels. He presented to the hospital on 08/27/2024 secondary to reports of abdominal pain, nausea, and vomiting. Patient reports he has also had a decreased appetite and unable to hold anything down for 6 days secondary to worsening pain with intake. Upon arrival to our facility, patient underwent evaluation in the emergency department. Signs upon arrival show blood pressure 156/90, heart rate 103, respiratory rate 18, temp 97.7 F, and SpO2 of 99% on room air. EKG completed showing sinus rhythm at 99 bpm with occasional PAC and T wave inversion in inferior lateral leads which is a new finding when compared to EKG completed 03/20/2024. Labs completed and reviewed. CBC showing leukocytosis with WBC count of 15.4 otherwise normal findings. BMP showing hyponatremia with sodium of 3.1 and high anion gap metabolic acidosis with chloride of 106, bicarb of 12, and anion gap of 27. Blood glucose was 257. Lactic acid 3.6. Calcium slightly high at 11.1. Liver profile normal findings. Amylase and lipase also normal findings. Troponin 0.013 and 0.029. Stool occult was positive. Urinalysis was positive for protein, ketones, and glucose and acetone was also positive. EKG was completed showing normal sinus rhythm at 71 bpm with no significant T wave or ST abnormalities upon personal review and interpretation. Physical exam: Patient was seen and fully evaluated at bedside this morning. He is awaiting to go down for gastrojejunostomy later today. Patient reports nausea, abdominal pain and distention but denies any other complaints at this time. NG-tube remains in place. Vital signs r to be taken down for surgical repaireviewed and stable. General: Nontoxic, no distress and appears stated age. Derm: Skin warm and dry, normal coloration for ethnicity. Head: Atraumatic, normocephalic and symmetric. Eyes: EOM's intact, no lid lag, and anicteric sclera Mouth: no lip lesions, mucus membranes moist Cardiovascular: regular rate and rhythm with normal S1S2, systolic murmur, and cap refill < 2 seconds. Lungs: Respirations even, regular, and unlabored on room air. Lungs CTA bilaterally, no rhonchi, no rales, no wheezing, and no accessory muscle usage. Abdominal: soft, diffuse tenderness upon palpation, no guarding, no appreciable organomegaly. NG tube in place to low intermittent suction. Ext: Movement and sensation intact. No gross muscle atrophy, no edema, no contractures. Patient with left BKA. Neuro: Speech clear, face symmetrical and CN II-XII grossly intact with no noted focal neuro deficits Psych: Alert and oriented to person, place, time, and situation. Appropriate and pleasant affect. Assessment and Plan of Care: Small bowel obstruction with history of gastric outlet obstruction requiring surgical repair with balloon dilations Coffee-ground emesis Normocytic anemia -Patient admitted under general surgery team and scheduled to undergo gastrojejunostomy today.. Discussed in detail with general surgery PA, patient's potassium was 2.9 this morning ordered for replacement but recommend repeat draw prior to undergoing anesthesia. -Maintain NG tube to low intermittent suction. -Protonix 40 mg IVP twice daily -Repeat hemoglobin this evening and again continue to monitor closely. -Telemetry monitoring -Continue to monitor hemoglobin levels closely with repeat labs. Currently hemoglobin 9.2. We will transfuse if indicated for hemoglobin less than 7. -Continue gentle IV fluid hydration with 0.9% normal saline at 100 cc/h. Severe dehydration with high anion gap metabolic acidosis, secondary to starvation ketosis Hypokalemia Lactic Acidosis -Patient reported unable to tolerate oral intake x 6 days prior to admission. -Metabolic acidosis improving and anion gap closing status post administration of 2 L bolus followed by maintenance infusion. -Lactic acidosis resolved with fluid hydration. -Morning potassium 2.9. Orders placed for K-Dur 40 mEq every 2 hours x 2.. Continue to monitor electrolytes closely with repeat labs. -DVT prophylaxis with SCDs. History of CAD previous stenting of LAD Hypertension -Patient has a history of CAD and currently denies cardiac complaints at this time including chest pain, palpitations, or shortness of breath. -Hold aspirin and Plavix at this time secondary to coffee-ground emesis, pending plans for gastrojejunostomy -Repeat EKG was completed showing normal sinus rhythm at 71 bpm with no significant T wave or ST abnormalities upon personal review and interpretation. -Patient to remain on telemetry monitoring, if any changes or patient develops cardiac complaints will need cardiology consultation. -Patient to otherwise continue cardiac medication regimen with amlodipine 10 mg nightly, lisinopril 40 mg daily, metoprolol 100 mg daily, and rosuvastatin 5 mg daily. Data and imaging reviewed: -Morning labs reviewed CBC showing resolution of leukocytosis with WBC count of 8.93 and slightly worsening anemia with hemoglobin of 9.2. BMP showing hypokalemia with potassium of 2.9 and high anion gap metabolic acidosis with chloride of 111, bicarb of 17.2, and anion gap of 15.80. Blood glucose 133. Magnesium slightly low at 1.7. Liver profile unremarkable. -Vital signs reviewed. Blood pressure 166/78, heart rate 83, respiratory rate 16, temp 99.2 F, and SpO2 of 98% on room air. Thank you for allowing us to participate in the care of this pleasant patient. Do not hesitate to contact us with questions. Someone can be reached from the [facility] Hospitalist group all hours of the day at [phone] or via [employer]. Patient was seen independently by Nurse Pracitioner. This document was prepared using [email or web address] dictation software. Please allow for errors in weaving inspector, while rare they do occur. I reviewed the documentation as provided by the DARSHANA above, who is the original author of this note. I agree with the documented assessment and plan, with the following changes: none Objective - Vital Signs Vital signs: Vital Signs Temp 99.2 F 08/29/24 07:10 Pulse 83 08/29/24 07:10 Resp 16 08/29/24 07:10 BP 166/78 08/29/24 07:10 Pulse Ox 98 08/29/24 07:10 FiO2 Intake & Output 08/28/24 08/29/24 08/29/24 18:59 06:59 18:59 Intake Total 200 Output Total 2275 600 Balance -2074 Weight 77.111 kg Intake: IV 200 Output: Gastric Drainage 900 Urine 1375 600 Other: Voiding Method Urinal - Labs CBC & Chem 7: 08/29/24 04:41 08/29/24 11:51 Labs: Abnormal Lab Results - Last 24 Hours (Table) 08/28/24 08/28/24 08/28/24 Range/Units 11:54 15:11 17:32 WBC (3.8-10.6) k/uL RBC (4.30-5.90) m/uL Hgb (13.0-17.5) gm/dL Hct (39.0-53.0) % Neutrophils # (1.3-7.7) k/uL Lymphocytes # (1.0-4.8) k/uL Potassium (3.5-5.5) mmol/L Chloride (96-109) mmol/L Carbon Dioxide (21.6-31.8) mmol/L Anion Gap (4.00-12.00) mmol/L Creatinine (0.6-1.5) mg/dL BUN/Creatinine Ratio (12.00-20.00) Ratio Glucose (70-110) mg/dL POC Glucose (mg/dL) 160 H 141 H 168 H (70-110) mg/dL Total Bilirubin (0.3-1.2) mg/dL Total Protein (6.2-8.2) g/dL 08/28/24 08/28/24 08/29/24 Range/Units 17:52 20:15 04:41 WBC 11.2 H (3.8-10.6) k/uL RBC 3.36 L 2.97 L (4.30-5.90) m/uL Hgb 10.5 L 9.2 L (13.0-17.5) gm/dL Hct 33.0 L 28.6 L (39.0-53.0) % Neutrophils # 9.8 H (1.3-7.7) k/uL Lymphocytes # 0.7 L (1.0-4.8) k/uL Potassium (3.5-5.5) mmol/L Chloride (96-109) mmol/L Carbon Dioxide (21.6-31.8) mmol/L Anion Gap (4.00-12.00) mmol/L Creatinine (0.6-1.5) mg/dL BUN/Creatinine Ratio (12.00-20.00) Ratio Glucose (70-110) mg/dL POC Glucose (mg/dL) 135 H (70-110) mg/dL Total Bilirubin (0.3-1.2) mg/dL Total Protein (6.2-8.2) g/dL 08/29/24 08/29/24 Range/Units 04:41 05:59 WBC (3.8-10.6) k/uL RBC (4.30-5.90) m/uL Hgb (13.0-17.5) gm/dL Hct (39.0-53.0) % Neutrophils # (1.3-7.7) k/uL Lymphocytes # (1.0-4.8) k/uL Potassium 2.9 L (3.5-5.5) mmol/L Chloride 111 H (96-109) mmol/L Carbon Dioxide 17.2 L (21.6-31.8) mmol/L Anion Gap 15.80 H (4.00-12.00) mmol/L Creatinine 0.5 L (0.6-1.5) mg/dL BUN/Creatinine Ratio 33.80 H (12.00-20.00) Ratio Glucose 133 H (70-110) mg/dL POC Glucose (mg/dL) 146 H (70-110) mg/dL Total Bilirubin <0.2 L (0.3-1.2) mg/dL Total Protein 5.7 L (6.2-8.2) g/dL
[2024-08-29 16:40] LABS: Glucose,Whole Blood 136 mg/dL (70-110)
[2024-08-29 16:54] LABS: HCT 30.8 % (39.0-53.0); HGB 10.2 gm/dL (13.0-17.5); MCHC 33.2 g/dL (31.0-37.0); MCV 93.2 fL (80.0-100.0); Mean Platelet Volume 7.7; Platelet Count 184 k/uL (150-450); RBC 3.31 m/uL (4.30-5.90); RDW 12.7 % (11.5-15.5); WBC 8.4 k/uL (3.8-10.6)
[2024-08-29 17:19] LABS: African American GFR (CKD) >90 (>60 ml/min/1.73 sqM); Anion Gap 13 mmol/L; Blood Urea Nitrogen 15 mg/dL (9-20); Calcium 9.4 mg/dL (8.4-10.2); Carbon Dioxide 17 mmol/L (22-30); Chloride 112 mmol/L (98-107); Glucose 132 mg/dL (74-99); Non-African American GFR(CKD) >90 (>60 ml/min/1.73 sqM); Potassium 3.1 mmol/L (3.5-5.1); Sodium 142 mmol/L (137-145)
[2024-08-29] MEDS: POTASSIUM CHLORIDE 10 MEQ in WATER FOR INJECTION 1 100ML.BAG IVPB SCH (18:21)
[2024-08-29 20:43] LABS: Glucose,Whole Blood 129 mg/dL (70-110)
[2024-08-30] MEDS: IPRATROPIUM BROMIDE 0.06% NASAL SPRAY (15 ML) EA NOSTRIL SCH (02:41)
[2024-08-30] MEDS: FLUTICASONE NASAL 50MCG/SPRAY 16GM BTL EA NOSTRIL SCH (02:42)
[2024-08-30] MEDS: POTASSIUM CHLORIDE 20 MEQ in SODIUM CHLORIDE 0.9% 100 ML IVPB ONE (03:06)
[2024-08-30] MEDS: POTASSIUM CHLORIDE 20 MEQ in WATER FOR INJECTION 1 100ML.BAG IVPB ONE (04:55)
[2024-08-30 05:29] LABS: HCT 27.7 % (39.0-53.0); HGB 9.3 gm/dL (13.0-17.5); MCH 31.1 pg (25.0-35.0); MCHC 33.6 g/dL (31.0-37.0); MCV 92.5 fL (80.0-100.0); Mean Platelet Volume 7.9; Platelet Count 166 k/uL (150-450); RBC 2.99 m/uL (4.30-5.90); RDW 12.7 % (11.5-15.5); WBC 6.9 k/uL (3.8-10.6)
[2024-08-30 05:50] LABS: African American GFR (CKD) >90 (>60 ml/min/1.73 sqM); Anion Gap 5 mmol/L; Blood Urea Nitrogen 14 mg/dL (9-20); Calcium 9.2 mg/dL (8.4-10.2); Carbon Dioxide 20 mmol/L (22-30); Chloride 112 mmol/L (98-107); Glucose 114 mg/dL (74-99); Non-African American GFR(CKD) >90 (>60 ml/min/1.73 sqM); Potassium 2.9 mmol/L (3.5-5.1); Sodium 137 mmol/L (137-145)
[2024-08-30 06:23] LABS: Glucose,Whole Blood 120 mg/dL (70-110)
[2024-08-30 09:04] LABS: African American GFR (CKD) >90 (>60 ml/min/1.73 sqM); Anion Gap 10 mmol/L; Blood Urea Nitrogen 14 mg/dL (9-20); Calcium 9.3 mg/dL (8.4-10.2); Carbon Dioxide 21 mmol/L (22-30); Chloride 113 mmol/L (98-107); Glucose 117 mg/dL (74-99); Magnesium 1.8 mg/dL (1.6-2.3); Non-African American GFR(CKD) >90 (>60 ml/min/1.73 sqM); Potassium 3.3 mmol/L (3.5-5.1); Sodium 144 mmol/L (137-145)
[2024-08-30] MEDS: POTASSIUM CHLORIDE ER 20 MEQ TAB.ER PO STA (09:11)
[2024-08-30] MEDS: LACTATED RINGERS 1,000 ML IV SCH (09:11)
[2024-08-30 09:30] LABS: Glucose,Whole Blood 124 mg/dL (70-110)
[2024-08-30] MEDS: IV FLUID CONTINUATION 1,000 ML IV ONE ×2 (09:45)
[2024-08-30] MEDS: HEPARIN SODIUM,PORCINE 5,000 UNIT/ML 1 ML VIAL SQ STA (09:55)
[2024-08-30] MEDS: DEXAMETHASONE SOD PHOSPHATE 4 MG/ML 1 ML VIAL IVP STA (09:56)
[2024-08-30] MEDS: MIDAZOLAM 2 MG/2 ML VIAL IV ONE (09:58)
[2024-08-30] MEDS: MAGNESIUM SULFATE-D5W PMX 1 GM in DEXTROSE/WATER 1 100ML.BAG IVPB SCH (10:01)
[2024-08-30] MEDS ORDERED: NALOXONE 0.4 MG/ML 1 ML VIAL IV PRN (10:26)
[2024-08-30] MEDS ORDERED: LIDOCAINE 1% INJ 10MG/ML (20 ML MDV) ONE (10:27)
[2024-08-30] MEDS ORDERED: SUCCINYLCHOLINE CHLORIDE 200 MG/10 ML VIAL IV ONE (10:27)
[2024-08-30] MEDS ORDERED: PROPOFOL 10 MG/ML 20 ML VIAL IV ONE (10:27)
[2024-08-30] MEDS ORDERED: PHENYLEPHRINE 10 MG/ML VIAL ONE (10:27)
[2024-08-30] MEDS ORDERED: ROCURONIUM 10 MG/ML (5 ML VIAL) IV ONE (10:27)
[2024-08-30] MEDS ORDERED: HYDROmorphone (PF) 1 MG/ML ONE (10:27)
[2024-08-30] MEDS ORDERED: MIDAZOLAM 2 MG/2 ML VIAL ONE (10:27)
[2024-08-30] MEDS ORDERED: GLYCOPYRROLATE 0.2 MG/ML 2 ML VIAL ONE (10:27)
[2024-08-30] MEDS ORDERED: NEOSTIGMINE 1 MG/ML 10 ML VIAL ONE (10:27)
[2024-08-30] MEDS ORDERED: fentaNYL (PF) 50 MCG/ML 2 ML AMP ONE (10:27)
--- NOTE | 2024-08-30 10:29 | P.ANPRN ---
Procedure Note - Anesthesia - Epidural/Spinal Epidural Continuous Time Out Performed: Yes Date of Procedure: 08/30/24 Procedure Start Time: 09:58 Procedure Stop Time: 10:04 Location of Patient: PreOp Indication: Acute Post-Operative Pain, Requested by Surgeon Sedation Type: Sedate with meaningful contact maintained Preparation: Sterile Dressing Position: Sitting Catheter: Indwelling Needle Guage: 18 Blood Aspirated: No Pain Paresthesia on Injection Noted: No Events: Uneventful and Well Tolerated (Xylocaine 1.5% with epi test dose was given 3 cc no adverse effect noted)
--- NOTE | 2024-08-30 12:13 | P.OP ---
Date of Procedure: 08/30/24 Preoperative Diagnosis: Gastric L obstruction secondary to peptic ulcer disease of duodenum Postoperative Diagnosis: Same Procedure(s) Performed: Gastrojejunostomy Anesthesia: SAYRA Surgeon: Major Cardoso Estimated Blood Loss (ml): 25 Pathology: none sent Condition: stable Disposition: PACU Description of Procedure: The patient was placed on the operative table in the supine position. He received general anesthesia. His abdomen was prepped and draped in usual sterile fashion. The abs entered through midline incision. Using electrocautery the abdominal wall was divided. There were some omental adhesions to the anterior abdominal wall. These were lysed with sharp diss ection electrocautery. The Bookwalter retractor placed wound. The abdomen was explored. The stomach appeared normal. In the second portion duodenum appeared to be some scarring. The right colon was mobilized in the hepatic flexure was mobilized. The duodenum was visualized. The scarring appeared to be located towards the second and third portion of the duodenum. At this point decided perform a gastrojejunostomy to bypass the duodenal obstruction. The ligament of Treitz was found by elevating the transverse colon. The jejunum was transected approximately 50 cm from the ligament of Treitz. The mesentery was divided. And then the limb of bowel was brought up to the anterior wall of the stomach. A pnnx-ys-yoam anastomosis was created between the stomach and jejunum. This was performed with a ANGEL stapler. A 3-0 GI silk suture was used to crotch stitch. The opening of the stomach and jejunum was then closed using 3-0 Vicryl and 3-0 GI silk suture. Next the biliary limb connection was performed. A sace-em-talt functional end-to-end stapled anastomosis created between the jejunum and the distal jejunum. 3-0 GI silk sutures a crotch stitch. The ANGEL and TA staplers were u sed to perform the anastomosis and a fork-tn-ttve functional end-to-end anastomosis. The abdomen is irrigated there is no bleeding seen. The fascia was closed with looped #1 PDS suture. Skin was closed devin. Patient Toller procedure well. He he was sent to recovery in stable condition.
[2024-08-30] MEDS: ROPIVACAINE 250 MG, HYDROMORPHONE (PF) 5 MG in SODIUM CHLORIDE 0.9% 200 ML EPIDURAL PRN (12:20)
[2024-08-30 12:42] LABS: Glucose,Whole Blood 149 mg/dL (70-110)
[2024-08-30 16:48] LABS: Glucose,Whole Blood 141 mg/dL (70-110)
--- NOTE | 2024-08-30 18:09 | P.PN ---
Subjective Progress Note Date: 08/30/24 Hospital course: Patient is a very pleasant 69-year-old male with a past medical history of CAD with stents, status post stenting, hypertension, hyperlipidemia, kel-vcfipki-tcnnbhrir diabetes mellitus, iron deficiency anemia, and gastric outlet obstruction with previous surgical repair requiring balloon dilation of small bowels. He presented to the hospital on 08/27/2024 secondary to reports of abdominal pain, nausea, and vomiting. Patient reports he has also had a decreased appetite and unable to hold anything down for 6 days secondary to worsening pain with intake. Upon arrival to our facility, patient underwent evaluation in the emergency department. Signs upon arrival show blood pressure 156/90, heart rate 103, respiratory rate 18, temp 97.7 F, and SpO2 of 99% on room air. EKG completed showing sinus rhythm at 99 bpm with occasional PAC and T wave inversion in inferior lateral leads which is a new finding when compared to EKG completed 03/20/2024. Labs completed and reviewed. CBC showing leukocytosis with WBC count of 15.4 otherwise normal findings. BMP showing hyponatremia with sodium of 3.1 and high anion gap metabolic acidosis with chloride of 106, bicarb of 12, and anion gap of 27. Blood glucose was 257. Lactic acid 3.6. Calcium slightly high at 11.1. Liver profile normal findings. Amylase and lipase also normal findings. Troponin 0.013 and 0.029. Stool occult was positive. Urinalysis was positive for protein, ketones, and glucose and acetone was also positive. EKG was completed showing normal sinus rhythm at 71 bpm with no significant T wave or ST abnormalities upon personal review and interpretation. Physical exam: Patient was seen and fully evaluated at bedside this morning. He is preparing to go down for gastrojejunostomy this morning.. Patient reports nausea has improved and abdominal pain and distention remains unchanged. He denies any other complaints at this time. NG-tube remains in place. Vital signs r to be taken down for surgical repaireviewed and stable. General: Nontoxic, no distress and appears stated age. Derm: Skin warm and dry, normal coloration for ethnicity. Head: Atraumatic, normocephalic and symmetric. Eyes: EOM's intact, no lid lag, and anicteric sclera Mouth: no lip lesions, mucus membranes moist Cardiovascular: regular rate and rhythm with normal S1S2, systolic murmur, and cap refill < 2 seconds. Lungs: Respirations even, regular, and unlabored on room air. Lungs CTA bilaterally, no rhonchi, no rales, no wheezing, and no accessory muscle usage. Abdominal: soft, diffuse tenderness upon palpation, no guarding, no appreciable organomegaly. NG tube in place to low intermittent suction. Ext: Movement and sensation intact. No gross muscle atrophy, no edema, no contractures. Patient with left BKA. Neuro: Speech clear, face symmetrical and CN II-XII grossly intact with no noted focal neuro deficits Psych: Alert and oriented to person, place, time, and situation. Appropriate and pleasant affect. Assessment and Plan of Care: Small bowel obstruction with history of gastric outlet obstruction requiring surgical repair with balloon dilations Coffee-ground emesis Normocytic anemia -Patient admitted under general surgery team and scheduled to undergo gastrojeju nostomy today.. Discussed in detail with general surgery PA, patient's potassium was 3.3 this morning and ordered for replacement. -Maintain NG tube to low intermittent suction. -Protonix 40 mg IVP twice daily -Repeat hemoglobin this evening and again continue to monitor closely. -Telemetry monitoring -Continue to monitor hemoglobin levels closely with repeat labs. Currently hemoglobin 9.2. We will transfuse if indicated for hemoglobin less than 7. -Continue gentle IV fluid hydration with 0.9% normal saline at 100 cc/h. Severe dehydration with high anion gap metabolic acidosis, secondary to starvation ketosis, improving Hypokalemia Lactic Acidosis, resolved -Patient reported unable to tolerate oral intake x 6 days prior to admission. -Metabolic acidosis improving and anion gap closing status post administration of 2 L bolus followed by maintenance infusion. -Lactic acidosis resolved with fluid hydration. -Morning potassium 3.3. Orders placed for K-Dur 40 mEq.. Continue to monitor electrolytes closely with repeat labs. -DVT prophylaxis with SCDs. History of CAD previous stenting of LAD Hypertension -Hold aspirin and Plavix at this time secondary to coffee-ground emesis, pending plans for gastrojejunostomy -EKG was completed showing normal sinus rhythm at 71 bpm with no significant T wave or ST abnormalities upon personal review and interpretation. -Patient to remain on telemetry monitoring. -Patient to otherwise continue cardiac medication regimen with amlodipine 10 mg nightly, lisinopril 40 mg daily, metoprolol 100 mg daily, and rosuvastatin 5 mg daily. May resume aspirin and Plavix once cleared by primary admitting general surgery team. Data and imaging reviewed: -Morning labs reviewed CBC showing resolution of leukocytosis with WBC count of 6.9 and stable anemia with hemoglobin of 9.3. BMP showing hypokalemia with potassium of 3.3 and slightly improving metabolic acidosis with chloride of 113, bicarb of 21, and anion gap of 10. Blood glucose 117. Magnesium slightly low at 1.8. -Vital signs reviewed. Blood pressure 156/76, heart rate 85, respiratory rate 17, temp 99.4 F, and SpO2 of 97% on room air. Thank you for allowing us to participate in the care of this pleasant patient. Do not hesitate to contact us with questions. Someone can be reached from the [facility] hospitalist group all hours of the day at [phone] or via [employer]. Patient was seen independently by Nurse Pracitioner. This document was prepared using [employer] dictation software. Please allow for errors in print traffic manager, while rare they do occur. I reviewed the documentation as provided by the DARSHANA above, who is the original author of this note. I agree with the documented assessment and plan, with the following changes: none Objective - Vital Signs Vital signs: Vital Signs Temp 99.4 F 08/30/24 01:23 Pulse 82 08/30/24 01:23 Resp 18 08/30/24 01:23 BP 121/70 08/30/24 01:23 Pulse Ox 94 L 08/30/24 01:23 FiO2 Intake & Output 08/29/24 08/30/24 08/30/24 18:59 06:59 18:59 Output Total 550 625 Balance -550 -625 Weight 64 kg Output: Urine 550 625 Other: Voiding Method Urinal Urinal - Labs CBC & Chem 7: 09/02/24 02:16 09/02/24 02:16 Labs: Abnormal Lab Results - Last 24 Hours (Table) 08/29/24 08/29/24 08/29/24 Range/Units 04:41 04:41 10:14 RBC 2.97 L (4.40-5.60) X 10*6/uL Hgb 9.2 L (13.0-17.0) g/dL Hct 28.6 L (39.6-50.0) % Potassium 2.9 L 2.8 L (3.5-5.5) mmol/L Chloride 111 H 112 H (96-109) mmol/L Carbon Dioxide 17.2 L 17 L (21.6-31.8) mmol/L Anion Gap 15.80 H (4.00-12.00) mmol/L Creatinine 0.5 L 0.49 L (0.6-1.5) mg/dL BUN/Creatinine Ratio 33.80 H (12.00-20.00) Ratio Glucose 133 H 143 H (70-110) mg/dL POC Glucose (mg/dL) (70-110) mg/dL Total Bilirubin <0.2 L (0.3-1.2) mg/dL Total Protein 5.7 L (6.2-8.2) g/dL 08/29/24 08/29/24 08/29/24 Range/Units 11:51 12:33 16:33 RBC (4.40-5.60) X 10*6/uL Hgb (13.0-17.0) g/dL Hct (39.6-50.0) % Potassium 2.9 L 3.1 L (3.5-5.5) mmol/L Chloride 111 H (96-109) mmol/L Carbon Dioxide 19 L (21.6-31.8) mmol/L Anion Gap (4.00-12.00) mmol/L Creatinine 0.53 L (0.6-1.5) mg/dL BUN/Creatinine Ratio (12.00-20.00) Ratio Glucose 141 H (70-110) mg/dL POC Glucose (mg/dL) 147 H (70-110) mg/dL Total Bilirubin (0.3-1.2) mg/dL Total Protein (6.2-8.2) g/dL 08/29/24 08/29/24 08/29/24 Range/Units 16:33 16:33 16:39 RBC 3.31 L (4.40-5.60) X 10*6/uL Hgb 10.2 L (13.0-17.0) g/dL Hct 30.8 L (39.6-50.0) % Potassium 3.1 L (3.5-5.5) mmol/L Chloride 112 H (96-109) mmol/L Carbon Dioxide 17 L (21.6-31.8) mmol/L Anion Gap (4.00-12.00) mmol/L Creatinine 0.50 L (0.6-1.5) mg/dL BUN/Creatinine Ratio (12.00-20.00) Ratio Glucose 132 H (70-110) mg/dL POC Glucose (mg/dL) 136 H (70-110) mg/dL Total Bilirubin (0.3-1.2) mg/dL Total Protein (6.2-8.2) g/dL 08/29/24 08/29/24 08/29/24 Range/Units 20:42 21:06 23:51 RBC (4.40-5.60) X 10*6/uL Hgb (13.0-17.0) g/dL Hct (39.6-50.0) % Potassium 2.9 L 2.8 L (3.5-5.5) mmol/L Chloride (96-109) mmol/L Carbon Dioxide (21.6-31.8) mmol/L Anion Gap (4.00-12.00) mmol/L Creatinine (0.6-1.5) mg/dL BUN/Creatinine Ratio (12.00-20.00) Ratio Glucose (70-110) mg/dL POC Glucose (mg/dL) 129 H (70-110) mg/dL Total Bilirubin (0.3-1.2) mg/dL Total Protein (6.2-8.2) g/dL 08/30/24 08/30/24 08/30/24 Range/Units 04:55 04:55 06:20 RBC 2.99 L (4.40-5.60) X 10*6/uL Hgb 9.3 L (13.0-17.0) g/dL Hct 27.7 L (39.6-50.0) % Potassium 2.9 L (3.5-5.5) mmol/L Chloride 112 H (96-109) mmol/L Carbon Dioxide 20 L (21.6-31.8) mmol/L Anion Gap (4.00-12.00) mmol/L Creatinine 0.53 L (0.6-1.5) mg/dL BUN/Creatinine Ratio (12.00-20.00) Ratio Glucose 114 H (70-110) mg/dL POC Glucose (mg/dL) 120 H (70-110) mg/dL Total Bilirubin (0.3-1.2) mg/dL Total Protein (6.2-8.2) g/dL
[2024-08-30 19:09] LABS: African American GFR (CKD) >90 (>60 ml/min/1.73 sqM); Anion Gap 8 mmol/L; Blood Urea Nitrogen 16 mg/dL (9-20); Calcium 8.9 mg/dL (8.4-10.2); Carbon Dioxide 22 mmol/L (22-30); Chloride 112 mmol/L (98-107); Glucose 130 mg/dL (74-99); Non-African American GFR(CKD) >90 (>60 ml/min/1.73 sqM); Potassium 3.1 mmol/L (3.5-5.1); Sodium 142 mmol/L (137-145)
[2024-08-30 20:36] LABS: Glucose,Whole Blood 120 mg/dL (70-110)
[2024-08-30] MEDS: POTASSIUM CHLORIDE 10 MEQ in WATER FOR INJECTION 1 100ML.BAG IVPB SCH (21:02)
[2024-08-31 06:22] LABS: Glucose,Whole Blood 115 mg/dL (70-110)
[2024-08-31 09:13] LABS: HCT 27.8 % (39.6-50.0); MCH 30.6 pg (27.0-32.0); MCHC 32.4 g/dL (32.0-37.0); MCV 94.6 FL (80.0-97.0); Mean Platelet Volume 10.4 FL (9.5-12.2); NRBC Per 100 WBC 0 X 10*3/uL (0.00-0.01); Platelet Count 170 X 10*3/uL (140-440); RBC 2.94 X 10*6/uL (4.40-5.60); RDW 12.4 % (11.5-14.5); WBC 6.69 X 10*3/uL (4.50-10.00)
[2024-08-31 09:37] LABS: ALT 19 U/L (10-49); AST 22 U/L (14-35); Albumin 3.5 g/dL (3.8-4.9); Albumin/Globulin Ratio 2.19 Ratio (1.60-3.17); Alkaline Phosphatase 65 U/L (41-126); BUN/Creat Ratio 26.67 Ratio (12.00-20.00); Calcium 8.7 mg/dL (8.7-10.3); Carbon Dioxide 19.6 mmol/L (21.6-31.8); Chloride 110 mmol/L (96-109); Globulin 1.6 g/dL (1.6-3.3); Glucose 118 mg/dL (70-110); Magnesium 1.7 mg/dL (1.5-2.4); Potassium 3.2 mmol/L (3.5-5.5); Sodium 143 mmol/L (135-145); Total Bilirubin 0.3 mg/dL (0.3-1.2); Total Protein 5.1 g/dL (6.2-8.2)
[2024-08-31 11:19] LABS: Glucose,Whole Blood 114 mg/dL (70-110)
[2024-08-31] MEDS: diphenhydrAMINE 50 MG/ML 1 ML VIAL IVP PRN (11:22)
--- NOTE | 2024-08-31 11:53 | P.PN ---
Subjective Progress Note Date: 08/31/24 CHIEF COMPLAINT: Gastric outlet obstruction HISTORY OF PRESENT ILLNESS: Patient is postop day #1 status post gastrojejunostomy for gastric outlet obstruction secondary to peptic ulcer disease of the duodenum. Patient's pain is controlled. He has epidural in place. NG tube with 200 brownish output this morning and 700 mL through the night. Patient does report a small small amount of nausea. He did have a small amount of flatus. He did have a low-grade temp of 100 last night. Mildly tachycardic heart rate 104. WBC is 6.69 hemoglobin 9.0 potassium 3.2 patient is complaining of itching from the epidural Patient seen and examined with Dr. Cardoso PHYSICAL EXAM: VITAL SIGNS: Reviewed. GENERAL: Well-developed in no acute distress. ABDOMEN: Soft. Nondistended. Prevena wound VAC dressing intact NEUROLOGIC: Alert and oriented. Cranial nerves II through XII grossly intact. ASSESSMENT: 1. Gastric outlet obstruction secondary to peptic ulcer disease of the duodenum 2. Hypokalemia PLAN: -Continue NG tube for decompression -Keep patient n.p.o. he may have a few ice chips -Continue to replace potassium -Continue IV fluids -Continue epidural and Arriaga catheter -Incentive spirometer ordered -NO NSAIDS -Benadryl ordered for itching -DVT prophylaxis subcu heparin and GI prophylaxis Protonix Physician Notch Grinder note has been reviewed by physician. Signing provider agrees with the documented findings, assessment, and plan of care. Objective - Vital Signs Vital signs: Vital Signs Temp 99.8 F H 08/31/24 07:06 Pulse 104 H 08/31/24 08:41 Resp 20 08/31/24 08:41 BP 121/72 08/31/24 07:06 Pulse Ox 94 L 08/31/24 07:06 FiO2 Intake & Output 08/30/24 08/31/24 08/31/24 18:59 06:59 18:59 Intake Total 2050 Output Total 575 1050 Balance 1475 -1050 Weight 69.5 kg Intake: IV 1850 Oral 200 Output: Gastric Drainage 700 Urine 550 350 Estimated Blood Loss 25 Other: Voiding Method Urinal Indwelling Catheter Indwelling Catheter # Voids 1 - Labs CBC & Chem 7: 08/31/24 03:19 08/31/24 03:19 Labs: Abnormal Lab Results - Last 24 Hours (Table) 08/30/24 08/30/24 08/30/24 Range/Units 12:39 16:47 17:34 RBC (4.40-5.60) X 10*6/uL Hgb (13.0-17.0) g/dL Hct (39.6-50.0) % Potassium 3.1 L (3.5-5.1) mmol/L Chloride 112 H (98-107) mmol/L Carbon Dioxide (21.6-31.8) mmol/L Anion Gap (4.00-12.00) mmol/L Creatinine 0.57 L (0.66-1.25) mg/dL BUN/Creatinine Ratio (12.00-20.00) Ratio Glucose 130 H (74-99) mg/dL POC Glucose (mg/dL) 149 H 141 H (70-110) mg/dL Total Protein (6.2-8.2) g/dL Albumin (3.8-4.9) g/dL 08/30/24 08/31/24 08/31/24 Range/Units 20:34 03:19 03:19 RBC 2.94 L (4.40-5.60) X 10*6/uL Hgb 9.0 L (13.0-17.0) g/dL Hct 27.8 L (39.6-50.0) % Potassium 3.2 L (3.5-5.1) mmol/L Chloride 110 H (98-107) mmol/L Carbon Dioxide 19.6 L (21.6-31.8) mmol/L Anion Gap 13.40 H (4.00-12.00) mmol/L Creatinine (0.66-1.25) mg/dL BUN/Creatinine Ratio 26.67 H (12.00-20.00) Ratio Glucose 118 H (74-99) mg/dL POC Glucose (mg/dL) 120 H (70-110) mg/dL Total Protein 5.1 L (6.2-8.2) g/dL Albumin 3.5 L (3.8-4.9) g/dL 08/31/24 08/31/24 Range/Units 06:19 11:18 RBC (4.40-5.60) X 10*6/uL Hgb (13.0-17.0) g/dL Hct (39.6-50.0) % Potassium (3.5-5.1) mmol/L Chloride (98-107) mmol/L Carbon Dioxide (21.6-31.8) mmol/L Anion Gap (4.00-12.00) mmol/L Creatinine (0.66-1.25) mg/dL BUN/Creatinine Ratio (12.00-20.00) Ratio Glucose (74-99) mg/dL POC Glucose (mg/dL) 115 H 114 H (70-110) mg/dL Total Protein (6.2-8.2) g/dL Albumin (3.8-4.9) g/dL
--- NOTE | 2024-08-31 12:28 | P.PN ---
Subjective Progress Note Date: 08/31/24 Hospital course: Patient is a very pleasant 69-year-old male with a past medical history of CAD with stents, status post stenting, hypertension, hyperlipidemia, iri-ijrnxnh-elhumtiud diabetes mellitus, iron deficiency anemia, and gastric outlet obstruction with previous surgical repair requiring balloon dilation of small bowels. He presented to the hospital on 08/27/2024 secondary to reports of abdominal pain, nausea, and vomiting. Patient reports he has also had a decreased appetite and unable to hold anything down for 6 days secondary to worsening pain with intake. Upon arrival to our facility, patient underwent evaluation in the emergency department. Signs upon arrival show blood pressure 156/90, heart rate 103, respiratory rate 18, temp 97.7 F, and SpO2 of 99% on room air. EKG completed showing sinus rhythm at 99 bpm with occasional PAC and T wave inversion in inferior lateral leads which is a new finding when compared to EKG completed 03/20/2024. Labs completed and reviewed. CBC showing leukocytosis with WBC count of 15.4 otherwise normal findings. BMP showing hyponatremia with sodium of 3.1 and high anion gap metabolic acidosis with chloride of 106, bicarb of 12, and anion gap of 27. Blood glucose was 257. Lactic acid 3.6. Calcium slightly high at 11.1. Liver profile normal findings. Amylase and lipase also normal findings. Troponin 0.013 and 0.029. Stool occult was positive. Urinalysis was positive for protein, ketones, and glucose and acetone was also positive. EKG was completed showing normal sinus rhythm at 71 bpm with no significant T wave or ST abnormalities upon personal review and interpretation. Physical exam: Patient was seen and fully evaluated at bedside this morning. He is day 1 postop status post gastrojejunostomy. NG-tube remains in place. Patient reports postoperative pain is controlled, as long as he does not move. Patient sitting in chair and currently denies having any other complaints including nausea, vomiting, chest pain, palpitations, or shortness of breath. Vital signs r to be taken down for surgical repaireviewed and stable. General: Nontoxic, no distress and appears stated age. Derm: Skin warm and dry, normal coloration for ethnicity. Head: Atraumatic, normocephalic and symmetric. Eyes: EOM's intact, no lid lag, and anicteric sclera Mouth: no lip lesions, mucus membranes moist Cardiovascular: regular rate and rhythm with normal S1S2, systolic murmur, and c ap refill < 2 seconds. Lungs: Respirations even, regular, and unlabored on room air. Lungs CTA asif aterally, no rhonchi, no rales, no wheezing, and no accessory muscle usage. Abdominal: soft, diffuse tenderness upon palpation, no guarding, no appreciable organomegaly. NG tube in place to low intermittent suction. Ext: Movement and sensation intact. No gross muscle atrophy, no edema, no contractures. Patient with left BKA. Neuro: Speech clear, face symmetrical and CN II-XII grossly intact with no noted focal neuro deficits Psych: Alert and oriented to person, place, time, and situation. Appropriate and pleasant affect. Assessment and Plan of Care: Small bowel obstruction status post gastrojejunostomy Coffee-ground emesis Normocytic anemia History of gastric outlet obstruction requiring surgical repair with balloon dil ations -Patient admitted under general surgery team and underwent gastrojejunostomy on 08/30/[address] Cardoso. Discussed in detail with general surgery PA, patient's potassium was 3.3 this morning and ordered for replacement. -Maintain NG tube to low intermittent suction. -Protonix 40 mg IVP twice daily -Repeat hemoglobin this evening and again continue to monitor closely. -Telemetry monitoring -Continue to monitor hemoglobin levels closely with repeat labs. Currently he moglobin 9.2. We will transfuse if indicated for hemoglobin less than 7. -Continue gentle IV fluid hydration with 0.9% normal saline at 100 cc/h. High anion gap metabolic acidosis, secondary to starvation ketosis Hypokalemia Hypomagnesemia Lactic Acidosis, resolved Severe dehydration on arrival -Patient reported unable to tolerate oral intake x 6 days prior to admission. -Metabolic acidosis improving and anion gap closing status post administration of 2 L bolus followed by maintenance infusion. -Lactic acidosis resolved with fluid hydration. -Morning potassium 3.3. Orders placed for K-Dur 40 mEq.. Continue to monitor electrolytes closely with repeat labs. -Magnesium 1.7 orders placed for magnesium sulfate 2 g IVPB x 1 dose. -DVT prophylaxis with SCDs. History of CAD previous stenting of LAD Hypertension -Hold aspirin and Plavix at this time secondary to coffee-ground emesis and recent surgical procedure with gastrojejunostomy. May resume diet once cleared by general surgery team. -EKG was completed showing normal sinus rhythm at 71 bpm with no significant T wave or ST abnormalities upon personal review and interpretation. -Patient to remain on telemetry monitoring. -Patient to continue cardiac medication regimen with amlodipine 10 mg nightly, lisinopril 40 mg daily, metoprolol 100 mg daily, and rosuvastatin 5 mg daily. Data and imaging reviewed: -Morning labs reviewed CBC showing stable normocytic anemia with hemoglobin of 9.0.. BMP showing hypokalemia with potassium of 3.3 and high anion gap metabolic acidosis with chloride of 110 bicarb of 19.6, and anion gap of 13.40. Blood glucose 118. Magnesium slightly low at 1.7. -Vital signs reviewed. Blood pressure 121/72, heart rate 104, respiratory rate 20, temp 99.8 F, and SpO2 of 94% on room air.. Thank you for allowing us to participate in the care of this pleasant patient. Do not hesitate to contact us with questions. Someone can be reached from the [facility] hospitalist group all hours of the day at [phone] or via perfect serve. Patient was seen independently by Nurse Pracitioner. This document was prepared using [employer] dictation software. Please allow for errors in bonding machine tender, while rare they do occur. I reviewed the documentation as provided by the DARSHANA above, who is the original author of this note. I agree with the documented assessment and plan, with the following changes: none Objective - Vital Signs Vital signs: Vital Signs Temp 99.8 F H 08/31/24 07:06 Pulse 104 H 08/31/24 07:06 Resp 20 08/31/24 07:06 BP 121/72 08/31/24 07:06 Pulse Ox 94 L 08/31/24 07:06 FiO2 Intake & Output 08/30/24 08/31/24 08/31/24 18:59 06:59 18:59 Intake Total 2050 Output Total 575 1050 Balance 1475 -1050 Weight 69.5 kg Intake: IV 1850 Oral 200 Output: Gastric Drainage 700 Urine 550 350 Estimated Blood Loss 25 Other: Voiding Method Urinal Indwelling Catheter # Voids 1 - Labs CBC & Chem 7: 09/02/24 02:16 09/02/24 02:16 Labs: Abnormal Lab Results - Last 24 Hours (Table) 08/30/24 08/30/24 08/30/24 Range/Units 08:11 09:26 12:39 Potassium 3.3 L (3.5-5.1) mmol/L Chloride 113 H (98-107) mmol/L Carbon Dioxide 21 L (22-30) mmol/L Creatinine 0.56 L (0.66-1.25) mg/dL Glucose 117 H (74-99) mg/dL POC Glucose (mg/dL) 124 H 149 H (70-110) mg/dL 08/30/24 08/30/24 08/30/24 Range/Units 16:47 17:34 20:34 Potassium 3.1 L (3.5-5.1) mmol/L Chloride 112 H (98-107) mmol/L Carbon Dioxide (22-30) mmol/L Creatinine 0.57 L (0.66-1.25) mg/dL Glucose 130 H (74-99) mg/dL POC Glucose (mg/dL) 141 H 120 H (70-110) mg/dL 08/31/24 Range/Units 06:19 Potassium (3.5-5.1) mmol/L Chloride (98-107) mmol/L Carbon Dioxide (22-30) mmol/L Creatinine (0.66-1.25) mg/dL Glucose (74-99) mg/dL POC Glucose (mg/dL) 115 H (70-110) mg/dL
[2024-08-31] MEDS: MAGNESIUM SULFATE-D5W PMX 1 GM in DEXTROSE/WATER 1 100ML.BAG IVPB SCH (13:36)
[2024-08-31] MEDS: POTASSIUM CHLORIDE 10 MEQ in SODIUM CHLORIDE 0.9% 100 ML IVPB SCH (13:37)
[2024-08-31 16:53] LABS: Glucose,Whole Blood 140 mg/dL (70-110)
--- NOTE | 2024-08-31 18:01 | P.PN ---
Progress Note - Text 08/31/24 [id number] 69-year-old male status post gastric outlet obstruction surgery. Patient has an epidural catheter for postop pain control with a solution running at 7 cc an hour with a VAS of 7. I do not believe his pain score is that high as he looks very comfortable. Plan to continue epidural infusion
[2024-08-31] MEDS: HEPARIN SODIUM,PORCINE 5,000 UNIT/ML 1 ML VIAL SQ SCH (20:15)
[2024-08-31 20:36] LABS: Glucose,Whole Blood 110 mg/dL (70-110)
[2024-09-01 06:05] LABS: Glucose,Whole Blood 112 mg/dL (70-110)
[2024-09-01 09:27] LABS: HCT 26.8 % (39.6-50.0); HGB 8.4 g/dL (13.0-17.0); MCH 30.5 pg (27.0-32.0); MCHC 31.3 g/dL (32.0-37.0); MCV 97.5 FL (80.0-97.0); Mean Platelet Volume 9.9 FL (9.5-12.2); NRBC Per 100 WBC 0 X 10*3/uL (0.00-0.01); Platelet Count 163 X 10*3/uL (140-440); RBC 2.75 X 10*6/uL (4.40-5.60); RDW 12.5 % (11.5-14.5); WBC 8.21 X 10*3/uL (4.50-10.00)
[2024-09-01 09:38] LABS: Magnesium 1.8 mg/dL (1.5-2.4)
[2024-09-01 09:39] LABS: ALT 18 U/L (10-49); AST 35 U/L (14-35); Albumin 3.4 g/dL (3.8-4.9); Alkaline Phosphatase 64 U/L (41-126); Blood Urea Nitrogen 13.9 mg/dL (9.0-27.0); Calcium 8.3 mg/dL (8.7-10.3); Carbon Dioxide 16.9 mmol/L (21.6-31.8); Chloride 107 mmol/L (96-109); Globulin 1.7 g/dL (1.6-3.3); Glucose 118 mg/dL (70-110); Potassium 3.2 mmol/L (3.5-5.5); Sodium 140 mmol/L (135-145); Total Bilirubin 0.2 mg/dL (0.3-1.2); Total Protein 5.1 g/dL (6.2-8.2)
[2024-09-01 11:33] LABS: Glucose,Whole Blood 121 mg/dL (70-110)
--- NOTE | 2024-09-01 14:35 | P.PN ---
Subjective Progress Note Date: 09/01/24 Hospital course: Patient is a very pleasant 69-year-old male with a past medical history of CAD with stents, status post stenting, hypertension, hyperlipidemia, iuu-rggyojp-chwzurlan diabetes mellitus, iron deficiency anemia, and gastric outlet obstruction with previous surgical repair requiring balloon dilation of small bowels. He presented to the hospital on 08/27/2024 secondary to reports of abdominal pain, nausea, and vomiting. Patient reports he has also had a decreased appetite and unable to hold anything down for 6 days secondary to worsening pain with intake. Upon arrival to our facility, patient underwent evaluation in the emergency department. Signs upon arrival show blood pressure 156/90, heart rate 103, respiratory rate 18, temp 97.7 F, and SpO2 of 99% on room air. EKG completed showing sinus rhythm at 99 bpm with occasional PAC and T wave inversion in inferior lateral leads which is a new finding when compared to EKG completed 03/20/2024. Labs completed and reviewed. CBC showing leukocytosis with WBC count of 15.4 otherwise normal findings. BMP showing hyponatremia with sodium of 3.1 and high anion gap metabolic acidosis with chloride of 106, bicarb of 12, and anion gap of 27. Blood glucose was 257. Lactic acid 3.6. Calcium slightly high at 11.1. Liver profile normal findings. Amylase and lipase also normal findings. Troponin 0.013 and 0.029. Stool occult was positive. Urinalysis was positive for protein, ketones, and glucose and acetone was also positive. EKG was completed showing normal sinus rhythm at 71 bpm with no significant T wave or ST abnormalities upon personal review and interpretation. Physical exam: Patient was seen and fully evaluated at bedside this morning. He is day 2 postop status post gastrojejunostomy. NG-tube remains in place. He reports only experiencing mild postoperative pain throughout abdomen denies having any nausea, vomiting. Patient reports only complaint is having a dry pasty mouth. Mouth swabs at bedside. Vital signs r to be taken down for surgical repaireviewed and stable. General: Nontoxic, no distress and appears stated age. Derm: Skin warm and dry, normal coloration for ethnicity. Head: Atraumatic, normocephalic and symmetric. Eyes: EOM's intact, no lid lag, and anicteric sclera Mouth: no lip lesions, mucus membranes moist Cardiovascular: regular rate and rhythm with normal S1S2, systolic murmur, and cap refill < 2 seconds. Lungs: Respirations even, regular, and unlabored on room air. Lungs CTA bilaterally, no rhonchi, no rales, no wheezing, and no accessory muscle usage. Abdominal: soft, diffuse tenderness upon palpation, no guarding, no appreciable organomegaly. NG tube in place to low intermittent suction. Ext: Movement and sensation intact. No gross muscle atrophy, no edema, no contractures. Patient with left BKA. Neuro: Speech clear, face symmetrical and CN II-XII grossly intact with no noted focal neuro deficits Psych: Alert and oriented to person, place, time, and situation. Appropriate and pleasant affect. Assessment and Plan of Care: Small bowel obstruction status post gastrojejunostomy Coffee-ground emesis Normocytic anemia History of gastric outlet obstruction requiring surgical repair with balloon dilations -Patient admitted under general surgery team and underwent gastrojejunostomy on 08/30/[address] Cardoso. -Maintain NG tube to low intermittent suction. -Protonix 40 mg IVP twice daily -Hemoglobin currently stable at 8.4, will continue to monitor closely with repeat a.m. labs and transfuse if indicated for hemoglobin less than 7. -Telemetry monitoring -Continue gentle IV fluid hydration with 0.9% normal saline at 125 cc/h. High anion gap metabolic acidosis, secondary to starvation ketosis Hypokalemia Hypomagnesemia Lactic Acidosis, resolved Severe dehydration on arrival -Patient reported unable to tolerate oral intake x 6 days prior to admission. -Lactic acidosis resolved with fluid hydration. -Morning potassium 3.3. Orders placed for potassium chloride 10 mEq IVPB hourly x 4. Continue to monitor electrolytes closely with repeat labs. -Magnesium 1.8 . -DVT prophylaxis with SCDs. History of CAD previous stenting of LAD Hypertension -Hold aspirin and Plavix at this time secondary to coffee-ground emesis and re cent surgical procedure with gastrojejunostomy. May resume diet once cleared by general surgery team. -EKG was completed showing normal sinus rhythm at 71 bpm with no significant T wave or ST abnormalities upon personal review and interpretation. -Patient to remain on telemetry monitoring. -Patient to continue cardiac medication regimen with amlodipine 10 mg nightly, lisinopril 40 mg daily, metoprolol 100 mg daily, and rosuvastatin 5 mg daily. Data and imaging reviewed: -Morning labs reviewed CBC showing macrocytic anemia with hemoglobin of 8.4 and MCV of 97.5. BMP showing hypokalemia with potassium of 3.2 and high anion gap metabolic acidosis with chloride of 107, bicarb of 16.9, and anion gap of 16.10. Blood glucose 118. Magnesium 1.8. Liver profile unremarkable with exception of hypoalbuminemia with albumin of 3.4. -Vital signs reviewed. Blood pressure 143/68, heart rate 105, respiratory rate 18, temp 99.9 F, and SpO2 of 94% on room air. Thank you for allowing us to participate in the care of this pleasant patient. Do not hesitate to contact us with questions. Someone can be reached from the [facility] hospitalist group all hours of the day at [phone] or via [employer]. Patient was seen independently by Nurse Pracitioner. This document was prepared using [employer] dictation software. Please allow for errors in supervisor garment manufacturing, while rare they do occur. I reviewed the documentation as provided by the DARSHANA above, who is the original author of this note. I agree with the documented assessment and plan, with the following changes: none Objective - Vital Signs Vital signs: Vital Signs Temp 99.9 F H 09/01/24 07:20 Pulse 105 H 09/01/24 07:20 Resp 18 09/01/24 07:20 BP 143/68 09/01/24 07:20 Pulse Ox 94 L 09/01/24 07:20 FiO2 Intake & Output 08/31/24 09/01/24 09/01/24 18:59 06:59 18:59 Output Total 550 Balance -550 Weight 73 kg Output: Gastric Drainage 550 Other: Voiding Method Indwelling Catheter Indwelling Catheter - Labs CBC & Chem 7: 09/02/24 02:16 09/02/24 02:16 Labs: Abnormal Lab Results - Last 24 Hours (Table) 08/31/24 08/31/24 08/31/24 Range/Units 03:19 03:19 11:18 RBC 2.94 L (4.40-5.60) X 10*6/uL Hgb 9.0 L (13.0-17.0) g/dL Hct 27.8 L (39.6-50.0) % Potassium 3.2 L (3.5-5.5) mmol/L Chloride 110 H (96-109) mmol/L Carbon Dioxide 19.6 L (21.6-31.8) mmol/L Anion Gap 13.40 H (4.00-12.00) mmol/L BUN/Creatinine Ratio 26.67 H (12.00-20.00) Ratio Glucose 118 H (70-110) mg/dL POC Glucose (mg/dL) 114 H (70-110) mg/dL Total Protein 5.1 L (6.2-8.2) g/dL Albumin 3.5 L (3.8-4.9) g/dL 08/31/24 09/01/24 Range/Units 16:52 06:03 RBC (4.40-5.60) X 10*6/uL Hgb (13.0-17.0) g/dL Hct (39.6-50.0) % Potassium (3.5-5.5) mmol/L Chloride (96-109) mmol/L Carbon Dioxide (21.6-31.8) mmol/L Anion Gap (4.00-12.00) mmol/L BUN/Creatinine Ratio (12.00-20.00) Ratio Glucose (70-110) mg/dL POC Glucose (mg/dL) 140 H 112 H (70-110) mg/dL Total Protein (6.2-8.2) g/dL Albumin (3.8-4.9) g/dL
[2024-09-01] MEDS: POTASSIUM CHLORIDE IVPB SCH (15:08)
[2024-09-01] MEDS: SODIUM CHLORIDE 0.9% IVPB SCH (15:08)
[2024-09-01 16:54] LABS: Glucose,Whole Blood 129 mg/dL (70-110)
--- NOTE | 2024-09-01 17:21 | P.PN ---
Subjective Progress Note Date: 09/01/24 NAEON. No N/V. No F/C. No SOB or CP. Denies any flatus or BM. Objective - Vital Signs Vital signs: Vital Signs Temp 99.0 F 09/01/24 14:09 Pulse 88 09/01/24 14:09 Resp 20 09/01/24 14:09 BP 151/69 09/01/24 14:09 Pulse Ox 97 09/01/24 14:09 FiO2 Intake & Output 08/31/24 09/01/24 09/01/24 18:59 06:59 18:59 Intake Total 165.55 Output Total 550 Balance -550 165.55 Weight 73 kg Intake: Intake, IV Titration 165.55 Amount Ropivacaine 250 mg 165.55 Hydromorphone (Pf) 5 mg In Sodium Chloride 0.9% 200 ml @ Per Protocol EPIDURAL .Q0M PRN Rx#: [id number] Output: Gastric Drainage 550 Other: Voiding Method Indwelling Catheter Indwelling Catheter Indwelling Catheter - Exam Gen: AxO, NAD Pulm: non-labored respirations Abd: soft, non-tender, moderately-distended Incision: C/D/I NGT: intact with bilious output seen Extrem: no edema seen - Labs CBC & Chem 7: 09/01/24 02:39 09/01/24 02:39 Labs: Abnormal Lab Results - Last 24 Hours (Table) 09/01/24 09/01/24 09/01/24 Range/Units 02:39 02:39 06:03 RBC 2.75 L (4.40-5.60) X 10*6/uL Hgb 8.4 L (13.0-17.0) g/dL Hct 26.8 L (39.6-50.0) % MCV 97.5 H (80.0-97.0) FL MCHC 31.3 L (32.0-37.0) g/dL Potassium 3.2 L (3.5-5.5) mmol/L Carbon Dioxide 16.9 L (21.6-31.8) mmol/L Anion Gap 16.10 H (4.00-12.00) mmol/L Creatinine 0.5 L (0.6-1.5) mg/dL BUN/Creatinine Ratio 27.80 H (12.00-20.00) Ratio Glucose 118 H (70-110) mg/dL POC Glucose (mg/dL) 112 H (70-110) mg/dL Calcium 8.3 L (8.7-10.3) mg/dL Total Bilirubin 0.2 L (0.3-1.2) mg/dL Total Protein 5.1 L (6.2-8.2) g/dL Albumin 3.4 L (3.8-4.9) g/dL 09/01/24 09/01/24 Range/Units 11:32 16:52 RBC (4.40-5.60) X 10*6/uL Hgb (13.0-17.0) g/dL Hct (39.6-50.0) % MCV (80.0-97.0) FL MCHC (32.0-37.0) g/dL Potassium (3.5-5.5) mmol/L Carbon Dioxide (21.6-31.8) mmol/L Anion Gap (4.00-12.00) mmol/L Creatinine (0.6-1.5) mg/dL BUN/Creatinine Ratio (12.00-20.00) Ratio Glucose (70-110) mg/dL POC Glucose (mg/dL) 121 H 129 H (70-110) mg/dL Calcium (8.7-10.3) mg/dL Total Bilirubin (0.3-1.2) mg/dL Total Protein (6.2-8.2) g/dL Albumin (3.8-4.9) g/dL Assessment and Plan Assessment: Patient is a 69 year old male who is s/p gastrojejunostomy for peptic ulcer dis ease Plan: -NPO -NGT to LIS -IVF hydration -PRN pain and nausea control -Out of bed; encourage ambulation -DVT/GI PPx Tashi Brewer M.D. General Surgery
[2024-09-01 20:03] LABS: Glucose,Whole Blood 114 mg/dL (70-110)
[2024-09-02 03:42] LABS: HCT 26.4 % (39.0-53.0); HGB 8.4 gm/dL (13.0-17.5); MCH 30.2 pg (25.0-35.0); MCV 94.5 fL (80.0-100.0); Mean Platelet Volume 8.2; Platelet Count 202 k/uL (150-450); RBC 2.79 m/uL (4.30-5.90); RDW 12.7 % (11.5-15.5); WBC 6.3 k/uL (3.8-10.6)
[2024-09-02 03:52] LABS: ALT 19 U/L (4-49); AST 31 U/L (17-59); African American GFR (CKD) >90 (>60 ml/min/1.73 sqM); Albumin 2.8 g/dL (3.5-5.0); Albumin/Globulin Ratio 1.2; Alkaline Phosphatase 68 U/L (38-126); Anion Gap 9 mmol/L; Blood Urea Nitrogen 10 mg/dL (9-20); Calcium 8.4 mg/dL (8.4-10.2); Carbon Dioxide 17 mmol/L (22-30); Chloride 117 mmol/L (98-107); Globulin 2.3 g/dL; Glucose 106 mg/dL (74-99); Magnesium 1.8 mg/dL (1.6-2.3); Non-African American GFR(CKD) >90 (>60 ml/min/1.73 sqM); Potassium 3.2 mmol/L (3.5-5.1); Sodium 143 mmol/L (137-145); Total Bilirubin 0.4 mg/dL (0.2-1.3); Total Protein 5.1 g/dL (6.3-8.2)
[2024-09-02 06:05] LABS: Glucose,Whole Blood 120 mg/dL (70-110)
[2024-09-02] MEDS: POTASSIUM CHLORIDE ER 20 MEQ TAB.ER PO STA (08:38)
[2024-09-02] MEDS: POTASSIUM CHLORIDE 10 MEQ in WATER FOR INJECTION 1 100ML.BAG IVPB SCH (09:15)
--- NOTE | 2024-09-02 11:22 | P.PN ---
Subjective Progress Note Date: 09/02/24 Principal diagnosis: Gastric obstruction Patient seems to be doing fairly well today. Denies any nausea. Passing a small amount of flatus. Tmax 99.3. White blood cell count normal. Objective - Vital Signs Vital signs: Vital Signs Temp 98.9 F 09/02/24 07:22 Pulse 90 09/02/24 07:22 Resp 19 09/02/24 07:22 BP 131/68 09/02/24 07:22 Pulse Ox 95 09/02/24 07:22 FiO2 Intake & Output 09/01/24 09/02/24 09/02/24 18:59 06:59 18:59 Intake Total 165.55 Output Total 1400 1900 Balance -1234.45 -1900 Weight 72.1 kg Intake: Intake, IV Titration 165.55 Amount Ropivacaine 250 mg 165.55 Hydromorphone (Pf) 5 mg In Sodium Chloride 0.9% 200 ml @ Per Protocol EPIDURAL .Q0M PRN Rx#: [id number] Output: Urine 1400 1900 Other: Voiding Method Indwelling Catheter Indwelling Catheter Indwelling Catheter - Exam Abdomen: Soft, mild distention, dressing clean and dry, minimal tenderness - Labs CBC & Chem 7: 09/02/24 02:16 09/02/24 02:16 Labs: Abnormal Lab Results - Last 24 Hours (Table) 09/01/24 09/01/24 09/01/24 Range/Units 11:32 16:52 20:01 RBC (4.30-5.90) m/uL Hgb (13.0-17.5) gm/dL Hct (39.0-53.0) % Potassium (3.5-5.1) mmol/L Chloride (98-107) mmol/L Carbon Dioxide (22-30) mmol/L Creatinine (0.66-1.25) mg/dL Glucose (74-99) mg/dL POC Glucose (mg/dL) 121 H 129 H 114 H (70-110) mg/dL Total Protein (6.3-8.2) g/dL Albumin (3.5-5.0) g/dL 09/02/24 09/02/24 09/02/24 Range/Units 02:16 02:16 06:04 RBC 2.79 L (4.30-5.90) m/uL Hgb 8.4 L (13.0-17.5) gm/dL Hct 26.4 L (39.0-53.0) % Potassium 3.2 L (3.5-5.1) mmol/L Chloride 117 H (98-107) mmol/L Carbon Dioxide 17 L (22-30) mmol/L Creatinine 0.49 L (0.66-1.25) mg/dL Glucose 106 H (74-99) mg/dL POC Glucose (mg/dL) 120 H (70-110) mg/dL Total Protein 5.1 L (6.3-8.2) g/dL Albumin 2.8 L (3.5-5.0) g/dL Assessment and Plan (1) Gastric outlet obstruction Narrative/Plan: Patient doing well after Carrol-en-Y gastrojejunostomy. Monitor for fevers. Keep nasogastric tube in place today. Ambulate. Remove Arriaga catheter and epidural. Current Visit: Yes Status: Acute Code(s): K31.1 - ADULT HYPERTROPHIC PYLORIC STENOSIS SNOMED Code(s): 839671566
[2024-09-02 11:39] LABS: Glucose,Whole Blood 118 mg/dL (70-110)
[2024-09-02] MEDS: 0.9% NACL WITH KCL 40 MEQ/L 1,000 ML IV SCH (13:05)
--- NOTE | 2024-09-02 13:37 | P.PN ---
Subjective Progress Note Date: 09/02/24 Hospital course: Patient is a very pleasant 69-year-old male with a past medical history of CAD with stents, status post stenting, hypertension, hyperlipidemia, riu-[id number]-rhlwktiej diabetes mellitus, iron deficiency anemia, and gastric outlet obstruction with previous surgical repair requiring balloon dilation of small bowels. He presented to the hospital on 08/27/2024 secondary to reports of abdominal pain, nausea, and vomiting. Patient reports he has also had a decreased appetite and unable to hold anything down for 6 days secondary to worsening pain with intake. Upon arrival to our facility, patient underwent evaluation in the emergency department. Signs upon arrival show blood pressure 156/90, heart rate 103, respiratory rate 18, temp 97.7 F, and SpO2 of 99% on room air. EKG completed showing sinus rhythm at 99 bpm with occasional PAC and T wave inversion in inferior lateral leads which is a new finding when compared to EKG completed 03/20/2024. Labs completed and reviewed. CBC showing leukocytosis with WBC count of 15.4 otherwise normal findings. BMP showing hyponatremia with sodium of 3.1 and high anion gap metabolic acidosis with chloride of 106, bicarb of 12, and anion gap of 27. Blood glucose was 257. Lactic acid 3.6. Calcium slightly high at 11.1. Liver profile normal findings. Amylase and lipase also normal findings. Troponin 0.013 and 0.029. Stool occult was positive. Urinalysis was positive for protein, ketones, and glucose and acetone was also positive. EKG was completed showing normal sinus rhythm at 71 bpm with no significant T wave or ST abnormalities upon personal review and interpretation. Physical exam: Patient was seen and fully evaluated at bedside this morning. He is day 3 postop status post gastrojejunostomy. NG-tube remains in place. He reports only experiencing mild postoperative pain throughout abdomen and continues to having any nausea or vomiting. Patient reports only complaint is when he coughed he felt like his insides were going to fall out, but states he had no pain afterwards. He does report having a dry mouth and has been using mouth swabs as previously given. Vital signs r to be taken down for surgical repaireviewed and stable. General: Nontoxic, no distress and appears stated age. Derm: Skin warm and dry, normal coloration for ethnicity. Head: Atraumatic, normocephalic and symmetric. Eyes: EOM's intact, no lid lag, and anicteric sclera Mouth: no lip lesions, mucus membranes moist Cardiovascular: regular rate and rhythm with normal S1S2, systolic murmur, and cap refill < 2 seconds. Lungs: Respirations even, regular, and unlabored on room air. Lungs CTA bilaterally, no rhonchi, no rales, no wheezing, and no accessory muscle usage. Abdominal: soft, diffuse tenderness upon palpation, no guarding, no appreciable organomegaly. NG tube in place to low intermittent suction. Ext: Movement and sensation intact. No gross muscle atrophy, no edema, no contractures. Patient with left BKA. Neuro: Speech clear, face symmetrical and CN II-XII grossly intact with no noted focal neuro deficits Psych: Alert and oriented to person, place, time, and situation. Appropriate and pleasant affect. Assessment and Plan of Care: Small bowel obstruction status post gastrojejunostomy Coffee-ground emesis Normocytic anemia History of gastric outlet obstruction requiring surgical repair with balloon dilations -Patient admitted under general surgery team and underwent gastrojejunostomy on 08/30/[address] Cardoso. -Maintain NG tube to low intermittent suction. -Protonix 40 mg IVP twice daily -Hemoglobin currently stable at 8.4, will continue to monitor closely with repeat a.m. labs and transfuse if indicated for hemoglobin less than 7. -Telemetry monitoring -Continue gentle IV fluid hydration with 0.9% normal saline at 125 cc/h. High anion gap metabolic acidosis, secondary to starvation ketosis Hypokalemia Hypomagnesemia Lactic Acidosis, resolved Severe dehydration on arrival -Patient reported unable to tolerate oral intake x 6 days prior to admission. -Lactic acidosis resolved with fluid hydration. -Morning potassium remains low at 3.2. Orders placed for potassium chloride 10 mEq IVPB hourly x 4 along with K-Dur 20 mEq.through NG tube (totaling 60 mEq of potassium replacement). Continue to monitor electrolytes closely with repeat labs. -Magnesium 1.8 . -DVT prophylaxis with SCDs. History of CAD previous stenting of LAD Hypertension -Continue to Hold aspirin and Plavix at this time secondary to coffee-ground emesis and recent surgical procedure with gastrojejunostomy. May resume diet once cleared by general surgery team. -EKG was completed showing normal sinus rhythm at 71 bpm with no significant T wave or ST abnormalities upon personal review and interpretation. -Patient to remain on telemetry monitoring. -Patient to continue cardiac medication regimen with amlodipine 10 mg nightly, lisinopril 40 mg daily, metoprolol 100 mg daily, and rosuvastatin 5 mg daily. Data and imaging reviewed: -Morning labs reviewed CBC showing globin of 8.4. BMP showing hypokalemia with potassium of 3.2 and non-anion gap metabolic acidosis with chloride of 117, bicarb of 17, and anion gap of 9. Blood glucose 106. Magnesium 1.8. Liver profile unremarkable with exception of hypoalbuminemia with albumin of 2.8. -Vital signs reviewed. Blood pressure 131/68, heart rate 90, respiratory rate 19, temp 98.9 F, and SpO2 of 95% on room air. Thank you for allowing us to participate in the care of this pleasant patient. Do not hesitate to contact us with questions. Someone can be reached from the [facility] hospitalist group all hours of the day at [phone] or via perfect serve. Patient was seen independently by Nurse Pracitioner. This document was prepared using [employer] dictation software. Please allow for errors in automobile rental agent, while rare they do occur. I reviewed the documentation as provided by the DARSHANA above, who is the original author of this note. I agree with the documented assessment and plan, with the following changes: none Objective - Vital Signs Vital signs: Vital Signs Temp 98.9 F 09/02/24 07:22 Pulse 90 09/02/24 07:22 Resp 19 09/02/24 07:22 BP 131/68 09/02/24 07:22 Pulse Ox 95 09/02/24 07:22 FiO2 Intake & Output 09/01/24 09/02/24 09/02/24 18:59 06:59 18:59 Intake Total 165.55 Output Total 1400 1900 Balance -1234.45 -1900 Weight 72.1 kg Intake: Intake, IV Titration 165.55 Amount Ropivacaine 250 mg 165.55 Hydromorphone (Pf) 5 mg In Sodium Chloride 0.9% 200 ml @ Per Protocol EPIDURAL .Q0M PRN Rx#: [id number] Output: Urine 1400 1900 Other: Voiding Method Indwelling Catheter Indwelling Catheter - Labs CBC & Chem 7: 09/02/24 02:16 09/02/24 02:16 Labs: Abnormal Lab Results - Last 24 Hours (Table) 09/01/24 09/01/24 09/01/24 Range/Units 02:39 02:39 11:32 RBC 2.75 L (4.40-5.60) X 10*6/uL Hgb 8.4 L (13.0-17.0) g/dL Hct 26.8 L (39.6-50.0) % MCV 97.5 H (80.0-97.0) FL MCHC 31.3 L (32.0-37.0) g/dL Potassium 3.2 L (3.5-5.5) mmol/L Chloride (98-107) mmol/L Carbon Dioxide 16.9 L (21.6-31.8) mmol/L Anion Gap 16.10 H (4.00-12.00) mmol/L Creatinine 0.5 L (0.6-1.5) mg/dL BUN/Creatinine Ratio 27.80 H (12.00-20.00) Ratio Glucose 118 H (70-110) mg/dL POC Glucose (mg/dL) 121 H (70-110) mg/dL Calcium 8.3 L (8.7-10.3) mg/dL Total Bilirubin 0.2 L (0.3-1.2) mg/dL Total Protein 5.1 L (6.2-8.2) g/dL Albumin 3.4 L (3.8-4.9) g/dL 09/01/24 09/01/24 09/02/24 Range/Units 16:52 20:01 02:16 RBC 2.79 L (4.40-5.60) X 10*6/uL Hgb 8.4 L (13.0-17.0) g/dL Hct 26.4 L (39.6-50.0) % MCV (80.0-97.0) FL MCHC (32.0-37.0) g/dL Potassium (3.5-5.5) mmol/L Chloride (98-107) mmol/L Carbon Dioxide (21.6-31.8) mmol/L Anion Gap (4.00-12.00) mmol/L Creatinine (0.6-1.5) mg/dL BUN/Creatinine Ratio (12.00-20.00) Ratio Glucose (70-110) mg/dL POC Glucose (mg/dL) 129 H 114 H (70-110) mg/dL Calcium (8.7-10.3) mg/dL Total Bilirubin (0.3-1.2) mg/dL Total Protein (6.2-8.2) g/dL Albumin (3.8-4.9) g/dL 09/02/24 09/02/24 Range/Units 02:16 06:04 RBC (4.40-5.60) X 10*6/uL Hgb (13.0-17.0) g/dL Hct (39.6-50.0) % MCV (80.0-97.0) FL MCHC (32.0-37.0) g/dL Potassium 3.2 L (3.5-5.5) mmol/L Chloride 117 H (98-107) mmol/L Carbon Dioxide 17 L (21.6-31.8) mmol/L Anion Gap (4.00-12.00) mmol/L Creatinine 0.49 L (0.6-1.5) mg/dL BUN/Creatinine Ratio (12.00-20.00) Ratio Glucose 106 H (70-110) mg/dL POC Glucose (mg/dL) 120 H (70-110) mg/dL Calcium (8.7-10.3) mg/dL Total Bilirubin (0.3-1.2) mg/dL Total Protein 5.1 L (6.2-8.2) g/dL Albumin 2.8 L (3.8-4.9) g/dL
[2024-09-02 16:22] LABS: Glucose,Whole Blood 127 mg/dL (70-110)
[2024-09-02] MEDS: HYDROmorphone 0.5 MG/0.5 ML SYRINGE IVP PRN (19:44)
--- NOTE | 2024-09-02 19:47 | P.PN ---
Progress Note - Text 09/02/24 1040am 69-year-old male status post surgery for gastric outlet obstruction patient has an epidural catheter with a solution running at 7 cc an hour. Patient has a VAS of 6. No motor or sensory deficit noted. Plan to DC the epidural well 30 as the patient had received heparin in the morning At 8:30 AM, nurse informed
--- NOTE | 2024-09-02 19:48 | P.PN ---
Progress Note - Text 09/01/24 1502 69-year-old male status post surgery for gastric outlet obstruction. Patient is an epidural catheter with solution running at 7 cc an hour with a VAS of 6. Patient is comfortable with no sensory or motor deficits. Plan to continue epidural infusion
[2024-09-02 23:14] LABS: Glucose,Whole Blood 138 mg/dL (70-110)
[2024-09-03] MEDS: HYDROmorphone 2 MG/ML 1 ML SYRINGE IVP PRN (02:01)
[2024-09-03 06:30] LABS: Glucose,Whole Blood 124 mg/dL (70-110)
[2024-09-03 10:27] LABS: HCT 30.4 % (39.0-53.0); HGB 9.7 gm/dL (13.0-17.5); Hypochromasia Slight; MCH 30.6 pg (25.0-35.0); MCV 95.4 fL (80.0-100.0); Mean Platelet Volume 7.2; Platelet Count 258 k/uL (150-450); RBC 3.18 m/uL (4.30-5.90); RDW 12.5 % (11.5-15.5); WBC 6.8 k/uL (3.8-10.6)
[2024-09-03 10:40] LABS: African American GFR (CKD) >90 (>60 ml/min/1.73 sqM); Anion Gap 17 mmol/L; Blood Urea Nitrogen 8 mg/dL (9-20); Calcium 9.2 mg/dL (8.4-10.2); Carbon Dioxide 14 mmol/L (22-30); Chloride 115 mmol/L (98-107); Glucose 139 mg/dL (74-99); Magnesium 1.8 mg/dL (1.6-2.3); Non-African American GFR(CKD) >90 (>60 ml/min/1.73 sqM); Potassium 3.2 mmol/L (3.5-5.1); Sodium 146 mmol/L (137-145)
[2024-09-03 11:13] LABS: Glucose,Whole Blood 144 mg/dL (70-110)
--- NOTE | 2024-09-03 11:42 | P.PN ---
Subjective Progress Note Date: 09/03/24 Hospital course: Patient is a very pleasant 69-year-old male with a past medical history of CAD with stents, status post stenting, hypertension, hyperlipidemia, [id number] diabetes mellitus, iron deficiency anemia, and gastric outlet obstruction with previous surgical repair requiring balloon dilation of small bowels. He presented to the hospital on 08/27/2024 secondary to reports of abdominal pain, nausea, and vomiting. Patient reports he has also had a decreased appetite and unable to hold anything down for 6 days secondary to worsening pain with intake. Upon arrival to our facility, patient underwent evaluation in the emergency department. Signs upon arrival show blood pressure 156/90, heart rate 103, respiratory rate 18, temp 97.7 F, and SpO2 of 99% on room air. EKG completed showing sinus rhythm at 99 bpm with occasional PAC and T wave inversion in inferior lateral leads which is a new finding when compared to EKG completed 03/20/2024. Labs completed and reviewed. CBC showing leukocytosis with WBC count of 15.4 otherwise normal findings. BMP showing hyponatremia with sodium of 3.1 and high anion gap metabolic acidosis with chloride of 106, bicarb of 12, and anion gap of 27. Blood glucose was 257. Lactic acid 3.6. Calcium slightly high at 11.1. Liver profile normal findings. Amylase and lipase also normal findings. Troponin 0.013 and 0.029. Stool occult was positive. Urinalysis was positive for protein, ketones, and glucose and acetone was also positive. EKG was completed showing normal sinus rhythm at 71 bpm with no significant T wave or ST abnormalities upon personal review and interpretation. Physical exam: Patient was seen and fully evaluated at bedside this morning. He is day 4 postop status post gastrojejunostomy. NG-tube remains in place. Patient reports nausea this morning but denies episodes of vomiting. He does report passing flatus but denies having a bowel movement. Vital signs r to be taken down for surgical repaireviewed and stable. General: Nontoxic, no distress and appears stated age. Derm: Skin warm and dry, normal coloration for ethnicity. Head: Atraumatic, normocephalic and symmetric. Eyes: EOM's intact, no lid lag, and anicteric sclera Mouth: no lip lesions, mucus membranes moist Cardiovascular: regular rate and rhythm with normal S1S2, systolic murmur, and cap refill < 2 seconds. Lungs: Respirations even, regular, and unlabored on room air. Lungs CTA bilaterally, no rhonchi, no rales, no wheezing, and no accessory muscle usage. Abdominal: soft, diffuse tenderness upon palpation, no guarding, no appreciable organomegaly. NG tube in place to low intermittent suction. Ext: Movement and sensation intact. No gross muscle atrophy, no edema, no con tractures. Patient with left BKA. Neuro: Speech clear, face symmetrical and CN II-XII grossly intact with no noted focal neuro deficits Psych: Alert and oriented to person, place, time, and situation. Appropriate and pleasant affect. Assessment and Plan of Care: Small bowel obstruction status post gastrojejunostomy Coffee-ground emesis Normocytic anemia History of gastric outlet obstruction requiring surgical repair with balloon dilations -Patient admitted under general surgery team and underwent gastrojejunostomy on 08/30/[address] Cardoso. -Maintain NG tube to low intermittent suction. -Protonix 40 mg IVP twice daily -Hemoglobin currently stable at 9.7, will continue to monitor closely with repeat a.m. labs and transfuse if indicated for hemoglobin less than 7. -Telemetry monitoring -IV fluids changed to D5 0.45% NS with 40 mEq of K+ at 100 cc/h. High anion gap metabolic acidosis, secondary to starvation ketosis Hypokalemia Hypernatremia Hypomagnesemia Polyuria -Morning potassium remains low at 3.2. Orders placed for potassium chloride 10 mEq IVPB hourly x 4 along with K-Dur 20 mEq.through NG tube (totaling 60 mEq of potassium replacement). -Consult placed to nephrology secondary to persistent hypokalemia despite over replacement. Initially felt hypokalemia secondary to excess gastric output however, patient with minimal gastric output has had excessive urinary output over the past 2 days totaling 3300 cc on the and a total of 2150 cc over the past 24 hours. -Continue to monitor electrolytes closely with repeat labs and replace abnormal electrolyte values as indicated based upon these findings. -Magnesium 1.8 and ordered for magnesium sulfate 2 g IVPB -DVT prophylaxis with SCDs. -IV fluids changed to D5 0.45% NS with 40 mEq of K+ at 100 cc/h. History of CAD previous stenting of LAD Hypertension -Continue to Hold aspirin and Plavix at this time secondary to coffee-ground emesis and recent surgical procedure with gastrojejunostomy. May resume diet once cleared by general surgery team. -EKG was completed showing normal sinus rhythm at 71 bpm with no significant T wave or ST abnormalities upon personal review and interpretation. -Patient to remain on telemetry monitoring. -Patient to continue cardiac medication regimen with amlodipine 10 mg nightly, lisinopril 40 mg daily, metoprolol 100 mg daily, and rosuvastatin 5 mg daily. Lactic Acidosis, resolved with IV fluid hydration Severe dehydration on arrival Data and imaging reviewed: -Morning labs reviewed CBC showing stable normocytic anemia with hemoglobin of 9.7. BMP showing hyponatremia with sodium of 146, potassium 3.2, and high anion gap metabolic acidosis with chloride of 115, bicarb of 14, and anion gap of 17. Blood glucose 139. Magnesium 1.8. -Vital signs reviewed. Blood pressure 151/79, heart rate 94, respiratory rate 17, temp 99.0 F, and SpO2 of 97% on room air. Discussed plan of care in detail with general surgery PA and high school english teacher. DVT prophylaxis with SCDs. Thank you for allowing us to participate in the care of this pleasant patient. Do not hesitate to contact us with questions. Someone can be reached from the [facility] hospitalist group all hours of the day at [phone] or via [employer] serve. Patient was seen independently by Nurse Pracitioner. This document was prepared using [employer] dictation software. Please allow for errors in voice network administrator, while rare they do occur. I reviewed the documentation as provided by the DARSHANA above, who is the original author of this note. I agree with the documented assessment and plan, with the following changes: none Objective - Vital Signs Vital signs: Vital Signs Temp 99 F 09/03/24 07:21 Pulse 94 09/03/24 07:21 Resp 17 09/03/24 07:21 BP 151/79 09/03/24 07:21 Pulse Ox 97 09/03/24 07:21 FiO2 Intake & Output 09/02/24 09/03/24 09/03/24 18:59 06:59 18:59 Output Total 1250 900 Balance -1250 -900 Weight 64 kg Output: Urine 1250 900 Other: Voiding Method Indwelling Catheter Urinal - Labs CBC & Chem 7: 09/03/24 09:54 10/28/24 09:54 Labs: Abnormal Lab Results - Last 24 Hours (Table) 09/02/24 09/02/24 09/02/24 Range/Units 11:37 16:21 23:12 POC Glucose (mg/dL) 118 H 127 H 138 H (70-110) mg/dL 09/03/24 Range/Units 06:28 POC Glucose (mg/dL) 124 H (70-110) mg/dL
[2024-09-03] MEDS: POTASSIUM CHLORIDE ER 20 MEQ TAB.ER PO STA (11:49)
[2024-09-03] MEDS: MAGNESIUM SULFATE-D5W PMX 1 GM in DEXTROSE/WATER 1 100ML.BAG IVPB SCH (11:50)
[2024-09-03] MEDS: POTASSIUM CHLORIDE 10 MEQ in WATER FOR INJECTION 1 100ML.BAG IVPB SCH (14:01)
--- NOTE | 2024-09-03 14:15 | P.PN ---
Subjective Progress Note Date: 09/03/24 CHIEF COMPLAINT: Gastric outlet obstruction HISTORY OF PRESENT ILLNESS: Patient is postop day #4 status post gastrojejunostomy for gastric outlet obstruction secondary to peptic ulcer disease of the duodenum. Patient reports his pain is controlled. He is having flatus. He does report nausea after pain medication. Arriaga catheter and epidural were discontinued yesterday. Patient currently has a condom catheter. Afebrile. WBC 6.8 hemoglobin 9.7 potassium 3.2 magnesium 1.8 PHYSICAL EXAM: VITAL SIGNS: Reviewed. GENERAL: Well-developed in no acute distress. ABDOMEN: Soft. Nondistended. Prevena wound VAC dressing intact NEUROLOGIC: Alert and oriented. Cranial nerves II through XII grossly intact. ASSESSMENT: 1. Gastric outlet obstruction secondary to peptic ulcer disease of the duodenum 2. Hypokalemia PLAN: -Discontinue NG tube -Start clear liquid diet -Medicine service replacing potassium and magnesium. Agree with nephrology consult regarding continuous hypokalemia -Continue IV fluids -NO NSAIDS -DVT prophylaxis subcu heparin and GI prophylaxis Protonix Physician Pinion Polisher note has been reviewed by physician. Signing provider agrees with the documented findings, assessment, and plan of care. Objective - Vital Signs Vital signs: Vital Signs Temp 99 F 09/03/24 07:21 Pulse 94 09/03/24 07:21 Resp 17 09/03/24 07:21 BP 151/79 09/03/24 07:21 Pulse Ox 97 09/03/24 07:21 FiO2 Intake & Output 09/02/24 09/03/24 09/03/24 18:59 06:59 18:59 Output Total 1250 900 Balance -1250 -900 Weight 64 kg Output: Urine 1250 900 Other: Voiding Method Indwelling Catheter Urinal - Labs CBC & Chem 7: 09/03/24 09:54 09/03/24 09:54 Labs: Abnormal Lab Results - Last 24 Hours (Table) 09/02/24 09/02/24 09/03/24 Range/Units 16:21 23:12 06:28 RBC (4.30-5.90) m/uL Hgb (13.0-17.5) gm/dL Hct (39.0-53.0) % Sodium (137-145) mmol/L Potassium (3.5-5.1) mmol/L Chloride (98-107) mmol/L Carbon Dioxide (22-30) mmol/L BUN (9-20) mg/dL Creatinine (0.66-1.25) mg/dL Glucose (74-99) mg/dL POC Glucose (mg/dL) 127 H 138 H 124 H (70-110) mg/dL 09/03/24 09/03/24 09/03/24 Range/Units 09:54 09:54 11:12 RBC 3.18 L (4.30-5.90) m/uL Hgb 9.7 L (13.0-17.5) gm/dL Hct 30.4 L (39.0-53.0) % Sodium 146 H (137-145) mmol/L Potassium 3.2 L (3.5-5.1) mmol/L Chloride 115 H (98-107) mmol/L Carbon Dioxide 14 L (22-30) mmol/L BUN 8 L (9-20) mg/dL Creatinine 0.52 L (0.66-1.25) mg/dL Glucose 139 H (74-99) mg/dL POC Glucose (mg/dL) 144 H (70-110) mg/dL
[2024-09-03] MEDS: D5-0.45% NACL WITH KCL 40MEQ/L 1,000 ML IV SCH (15:38)
[2024-09-03 16:13] LABS: Glucose,Whole Blood 170 mg/dL (70-110)
[2024-09-03 16:41] LABS: Potassium 3.3 mmol/L (3.5-5.1)
[2024-09-03 20:14] LABS: Glucose,Whole Blood 168 mg/dL (70-110)
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
[2024-09-03] MEDS: DEXTROSE 5% IN WATER 1,000 ML with SODIUM BICARB (1 MEQ/ML) 150 ML, POTASSIUM CHLORIDE ... IV SCH (22:43)
[2024-09-04] MEDS: ACETAMINOPHEN TAB 325 MG TAB PO PRN (05:59)
[2024-09-04 06:54] LABS: Glucose,Whole Blood 150 mg/dL (70-110)
[2024-09-04 08:37] LABS: HCT 27.9 % (39.6-50.0); HGB 9.3 g/dL (13.0-17.0); MCH 30.3 pg (27.0-32.0); MCHC 33.3 g/dL (32.0-37.0); MCV 90.9 FL (80.0-97.0); Mean Platelet Volume 9.3 FL (9.5-12.2); NRBC Per 100 WBC 0 X 10*3/uL (0.00-0.01); Platelet Count 263 X 10*3/uL (140-440); RBC 3.07 X 10*6/uL (4.40-5.60); RDW 12.6 % (11.5-14.5); WBC 5.42 X 10*3/uL (4.50-10.00)
[2024-09-04 08:59] LABS: Blood Urea Nitrogen 8.6 mg/dL (9.0-27.0); Calcium 8.9 mg/dL (8.7-10.3); Carbon Dioxide 21.6 mmol/L (21.6-31.8); Chloride 110 mmol/L (96-109); Glucose 150 mg/dL (70-110); Magnesium 1.8 mg/dL (1.5-2.4); Potassium 3.3 mmol/L (3.5-5.5); Sodium 144 mmol/L (135-145)
[2024-09-04 11:40] LABS: Glucose,Whole Blood 197 mg/dL (70-110)
[2024-09-04] MEDS: POTASSIUM CHLORIDE ER 20 MEQ TAB.ER PO SCH (12:08)
--- NOTE | 2024-09-04 12:33 | P.PN ---
Subjective Progress Note Date: 09/04/24 CHIEF COMPLAINT: Gastric outlet obstruction HISTORY OF PRESENT ILLNESS: Patient is postop day #5 status post gastrojejunostomy for gastric outlet obstruction secondary to peptic ulcer disease of the duodenum. Patient's pain is controlled. Patient does complain of worsening abdominal pain with cough. He denies any nausea or vomiting. He has had a lot of flatus. No bowel movement. Patient did have a low-grade temp of 100.6 this morning with mild tachycardia. WBC 5.42 Hgb 9.3 potassium 3.3 magnesium 1.8 PHYSICAL EXAM: VITAL SIGNS: Reviewed. GENERAL: Well-developed in no acute distress. ABDOMEN: Soft. Nondistended. Prevena wound VAC dressing intact NEUROLOGIC: Alert and oriented. Cranial nerves II through XII grossly intact. ASSESSMENT: 1. Gastric outlet obstruction secondary to peptic ulcer disease of the duodenum 2. Hypokalemia followed by nephrology PLAN: -Advance diet to full liquids -Continue to monitor -Continue to correct potassium -Fluid management per nephrology -NO NSAIDS -Encourage patient to increase activity level. Will have patient shower today -Abdominal binder ordered -Possible atelectasis, encouraged incentive spirometer use -DVT prophylaxis subcu heparin and GI prophylaxis Protonix Physician Science Editor note has been reviewed by physician. Signing provider agrees with the documented findings, assessment, and plan of care. Objective - Vital Signs Vital signs: Vital Signs Temp 99.2 F 09/04/24 07:05 Pulse 104 H 09/04/24 07:05 Resp 17 09/04/24 07:05 BP 125/76 09/04/24 07:05 Pulse Ox 96 09/04/24 07:05 FiO2 Intake & Output 09/03/24 09/04/24 09/04/24 18:59 06:59 18:59 Output Total 3300 1300 Balance -3300 -1300 Weight 64 kg 69 kg Output: Urine 3300 1300 Other: Voiding Method External Catheter - Labs CBC & Chem 7: 09/04/24 02:49 09/04/24 02:49 Labs: Abnormal Lab Results - Last 24 Hours (Table) 09/03/24 09/03/24 09/03/24 Range/Units 15:58 16:11 16:44 RBC (4.40-5.60) X 10*6/uL Hgb (13.0-17.0) g/dL Hct (39.6-50.0) % MPV (9.5-12.2) FL Potassium 3.3 L (3.5-5.1) mmol/L Chloride (96-109) mmol/L Anion Gap (4.00-12.00) mmol/L BUN (9.0-27.0) mg/dL Creatinine (0.6-1.5) mg/dL BUN/Creatinine Ratio (12.00-20.00) Ratio Glucose (70-110) mg/dL POC Glucose (mg/dL) 170 H (70-110) mg/dL Osmolality 302 H (275-295) mOsm/kg Ur Random Potassium 20.4 L (25.0-125.0) mmol/L 09/03/24 09/04/24 09/04/24 Range/Units 20:13 02:49 02:49 RBC 3.07 L (4.40-5.60) X 10*6/uL Hgb 9.3 L (13.0-17.0) g/dL Hct 27.9 L (39.6-50.0) % MPV 9.3 L (9.5-12.2) FL Potassium 3.3 L (3.5-5.1) mmol/L Chloride 110 H (96-109) mmol/L Anion Gap 12.40 H (4.00-12.00) mmol/L BUN 8.6 L (9.0-27.0) mg/dL Creatinine 0.4 L (0.6-1.5) mg/dL BUN/Creatinine Ratio 21.50 H (12.00-20.00) Ratio Glucose 150 H (70-110) mg/dL POC Glucose (mg/dL) 168 H (70-110) mg/dL Osmolality (275-295) mOsm/kg Ur Random Potassium (25.0-125.0) mmol/L 09/04/24 09/04/24 Range/Units 06:52 11:38 RBC (4.40-5.60) X 10*6/uL Hgb (13.0-17.0) g/dL Hct (39.6-50.0) % MPV (9.5-12.2) FL Potassium (3.5-5.1) mmol/L Chloride (96-109) mmol/L Anion Gap (4.00-12.00) mmol/L BUN (9.0-27.0) mg/dL Creatinine (0.6-1.5) mg/dL BUN/Creatinine Ratio (12.00-20.00) Ratio Glucose (70-110) mg/dL POC Glucose (mg/dL) 150 H 197 H (70-110) mg/dL Osmolality (275-295) mOsm/kg Ur Random Potassium (25.0-125.0) mmol/L
--- NOTE | 2024-09-04 13:23 | P.PN ---
Subjective patient is seen for follow-up for hypokalemia. Random urine potassium was not elevated therefore patient does not have significant renal wasting. We will continue with aggressive replacement. No significant complaints today. Objective - Vital Signs Vital signs: Vital Signs Temp 98.7 F 09/04/24 12:47 Pulse 94 09/04/24 12:47 Resp 17 09/04/24 12:47 BP 113/76 09/04/24 12:47 Pulse Ox 95 09/04/24 12:47 FiO2 Intake & Output 09/03/24 09/04/24 09/04/24 18:59 06:59 18:59 Output Total 3300 1300 Balance -3300 -1300 Weight 64 kg 69 kg Output: Urine 3300 1300 Other: Voiding Method External Catheter - Exam Patient is awake, comfortable, no acute distress. Examination of the heart S1 and S2 Examination of the lungs bilateral breath sounds are heard Abdomen is soft nontender Examination of lower extremities shows no significant edema DELIVERY REP exam grossly intact - Labs CBC & Chem 7: 09/04/24 02:49 09/04/24 02:49 Labs: Abnormal Lab Results - Last 24 Hours (Table) 09/03/24 09/03/24 09/03/24 Range/Units 15:58 16:11 16:44 RBC (4.40-5.60) X 10*6/uL Hgb (13.0-17.0) g/dL Hct (39.6-50.0) % MPV (9.5-12.2) FL Potassium 3.3 L (3.5-5.1) mmol/L Chloride (96-109) mmol/L Anion Gap (4.00-12.00) mmol/L BUN (9.0-27.0) mg/dL Creatinine (0.6-1.5) mg/dL BUN/Creatinine Ratio (12.00-20.00) Ratio Glucose (70-110) mg/dL POC Glucose (mg/dL) 170 H (70-110) mg/dL Osmolality 302 H (275-295) mOsm/kg Ur Random Potassium 20.4 L (25.0-125.0) mmol/L 09/03/24 09/04/24 09/04/24 Range/Units 20:13 02:49 02:49 RBC 3.07 L (4.40-5.60) X 10*6/uL Hgb 9.3 L (13.0-17.0) g/dL Hct 27.9 L (39.6-50.0) % MPV 9.3 L (9.5-12.2) FL Potassium 3.3 L (3.5-5.1) mmol/L Chloride 110 H (96-109) mmol/L Anion Gap 12.40 H (4.00-12.00) mmol/L BUN 8.6 L (9.0-27.0) mg/dL Creatinine 0.4 L (0.6-1.5) mg/dL BUN/Creatinine Ratio 21.50 H (12.00-20.00) Ratio Glucose 150 H (70-110) mg/dL POC Glucose (mg/dL) 168 H (70-110) mg/dL Osmolality (275-295) mOsm/kg Ur Random Potassium (25.0-125.0) mmol/L 09/04/24 09/04/24 Range/Units 06:52 11:38 RBC (4.40-5.60) X 10*6/uL Hgb (13.0-17.0) g/dL Hct (39.6-50.0) % MPV (9.5-12.2) FL Potassium (3.5-5.1) mmol/L Chloride (96-109) mmol/L Anion Gap (4.00-12.00) mmol/L BUN (9.0-27.0) mg/dL Creatinine (0.6-1.5) mg/dL BUN/Creatinine Ratio (12.00-20.00) Ratio Glucose (70-110) mg/dL POC Glucose (mg/dL) 150 H 197 H (70-110) mg/dL Osmolality (275-295) mOsm/kg Ur Random Potassium (25.0-125.0) mmol/L Assessment and Plan Assessment: 1. Hypokalemia associated with bowel obstruction. No significant renal potassium wasting noted. Random urine potassium was 20. Magnesium is not s ignificantly low. Continue with aggressive replacement. 2. Metabolic acidosis mostly nongap but significant anion gap metabolic acidosis on initial admission. This was mostly from DKA or starvation ketosis and had improved. 3. 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 Hypernatremia associated with free water deficit Plan: continue with IV fluids. Change to Ringer lactate with potassium chloride. Continue oral supplementation as well. Repeat potassium this evening
[2024-09-04] MEDS: MAGNESIUM OXIDE 400 MG TAB PO SCH (15:45)
[2024-09-04] MEDS: POTASSIUM BICARBONATE/CIT AC 20 MEQ TABLET.EFF PO ONE (15:45)
[2024-09-04] MEDS: LACTATED RINGERS IV SCH (16:03)
[2024-09-04] MEDS: POTASSIUM CHLORIDE IV SCH (16:03)
--- NOTE | 2024-09-04 16:05 | P.PN ---
Subjective Progress Note Date: 09/04/24 Hospital course: Patient is a very pleasant 69-year-old male with a past medical history of CAD with stents, status post stenting, hypertension, hyperlipidemia, [id number] diabetes mellitus, iron deficiency anemia, and gastric outlet obstruction with previous surgical repair requiring balloon dilation of small bowels. He presented to the hospital on 08/27/2024 secondary to reports of abdominal pain, nausea, and vomiting. Patient reports he has also had a decreased appetite and unable to hold anything down for 6 days secondary to worsening pain with intake. Upon arrival to our facility, patient underwent evaluation in the emergency department. Signs upon arrival show blood pressure 156/90, heart rate 103, respiratory rate 18, temp 97.7 F, and SpO2 of 99% on room air. EKG completed showing sinus rhythm at 99 bpm with occasional PAC and T wave inversion in inferior lateral leads which is a new finding when compared to EKG completed 03/20/2024. Labs completed and reviewed. CBC showing leukocytosis with WBC count of 15.4 otherwise normal findings. BMP showing hyponatremia with sodium of 3.1 and high anion gap metabolic acidosis with chloride of 106, bicarb of 12, and anion gap of 27. Blood glucose was 257. Lactic acid 3.6. Calcium slightly high at 11.1. Liver profile normal findings. Amylase and lipase also normal findings. Troponin 0.013 and 0.029. Stool occult was positive. Urinalysis was positive for protein, ketones, and glucose and acetone was also positive. EKG was completed showing normal sinus rhythm at 71 bpm with no significant T wave or ST abnormalities upon personal review and interpretation. Physical exam: Patient was seen and fully evaluated at bedside this morning. He is day 5 postop status post gastrojejunostomy. NG-tube was removed yesterday. Patient denies nausea or vomiting. He continues to report passing flatus but denies having a bowel movement since hospitalization. Vital signs r to be taken down for surgical repaireviewed and stable. General: Nontoxic, no distress and appears stated age. Derm: Skin warm and dry, normal coloration for ethnicity. Head: Atraumatic, normocephalic and symmetric. Eyes: EOM's intact, no lid lag, and anicteric sclera Mouth: no lip lesions, mucus membranes moist Cardiovascular: regular rate and rhythm with normal S1S2, systolic murmur, and cap refill < 2 seconds. Lungs: Respirations even, regular, and unlabored on room air. Lungs CTA bilaterally, no rhonchi, no rales, no wheezing, and no accessory muscle usage. Abdominal: soft, diffuse tenderness upon palpation, no guarding, no appreciable organomegaly. WoundVac and dressing in place Ext: Movement and sensation intact. No gross muscle atrophy, no edema, no contractures. Patient with left BKA. Neuro: Speech clear, face symmetrical and CN II-XII grossly intact with no noted focal neuro deficits Psych: Alert and oriented to person, place, time, and situation. Appropriate and pleasant affect. Assessment and Plan of Care: Small bowel obstruction status post gastrojejunostomy Coffee-ground emesis Normocytic anemia History of gastric outlet obstruction requiring surgical repair with balloon dilations -Patient admitted under general surgery team and underwent gastrojejunostomy on 08/30/[address] Cardoso. -Encourage use of incentive spirometry. -Protonix 40 mg IVP twice daily -Hemoglobin currently stable at 9.3, will continue to monitor closely with repeat a.m. labs and transfuse if indicated for hemoglobin less than 7. -Telemetry monitoring High anion gap metabolic acidosis, secondary to starvation ketosis. Improving Hypokalemia Hypernatremia resolved Hypomagnesemia, resolved Polyuria -Patient with persistent hypokalemia despite over replacement. -Morning potassium remains low at 3.3. -Consult placed to nephrology secondary to persistent hypokalemia despite over replacement and polyuria over the last few days. Discussed in depth with Dr. Chery. -Random urine potassium was low at 20.4. Urine osmolality is normal at 440 and serum osmolality was elevated at 302. -Continue to monitor electrolytes closely with repeat labs and replace abnormal electrolyte values as indicated based upon these findings. -Magnesium 1.8 and pt was started on Mag-Ox 400 mg BID -DVT prophylaxis with SCDs. -IV fluids changed to lactated Ringer's with 40 mEq of K+ at 100 cc/h. -Continue strict monitoring of I's and O's. Urinary output over the past 24 hours is documented at 4600 cc Isolated elevated temp -Believed to be secondary to postoperative atelectasis. -Patient again instructed on the importance of and strongly encouraged to use his incentive spirometer 10-15 times hourly while awake. -If patient develops further episodes of elevated temperatures or develops any o ther symptoms, will place additional orders such as order for chest x-ray at that time. History of CAD previous stenting of LAD Hypertension -Continue to Hold aspirin and Plavix at this time secondary to coffee-ground emesis and recent surgical procedure with gastrojejunostomy. May resume diet once cleared by general surgery team. -Patient to remain on telemetry monitoring. -Patient to continue cardiac medication regimen with amlodipine 10 mg nightly, l isinopril 40 mg daily, metoprolol 100 mg daily, and rosuvastatin 5 mg daily. Lactic Acidosis, resolved with IV fluid hydration Severe dehydration on arrival Data and imaging reviewed: -Morning labs reviewed CBC showing stable normocytic anemia with hemoglobin of 9.3. BMP showing sodium 144, potassium 3.3, chloride 110, bicarb 21.6, and anion gap of 12.40. Blood glucose 150. Magnesium 1.8. Random urine potassium was low at 20.4. Urine osmolality is normal at 440 and serum osmolality was elevated at 302. -Vital signs reviewed. Blood pressure 125/76, heart rate 104, respiratory rate 17, temp 99.2 F, and SpO2 of 96% on room air. Patient did have elevated temp overnight at 100.6 F -Urinary output over the past 24 hours is documented at 4600 cc Discussed plan of care in detail with general surgery PA and comptroller again today. DVT prophylaxis with SCDs. Thank you for allowing us to participate in the care of this pleasant patient. Do not hesitate to contact us with questions. Someone can be reached from the [facility] hospitalist group all hours of the day at [phone] or via perfect serve. Patient was seen independently by Nurse Pracitioner. This document was prepared using [employer] dictation software. Please allow for errors in filament maker, while rare they do occur. I reviewed the documentation as provided by the DARSHANA above, who is the original author of this note. I agree with the documented assessment and plan, with the following changes: none Objective - Vital Signs Vital signs: Vital Signs Temp 99.2 F 09/04/24 07:05 Pulse 104 H 09/04/24 07:05 Resp 17 09/04/24 07:05 BP 125/76 09/04/24 07:05 Pulse Ox 96 09/04/24 07:05 FiO2 Intake & Output 09/03/24 09/04/2424 18:59 06:59 18:59 Output Total 3300 1300 Balance -3300 -1300 Weight 64 kg 69 kg Output: Urine 3300 1300 Other: Voiding Method External Catheter - Labs CBC & Chem 7: 09/04/24 02:49 09/04/24 02:49 Labs: Abnormal Lab Results - Last 24 Hours (Table) 09/03/24 09/03/24 09/03/24 Range/Units 09:54 09:54 11:12 RBC 3.18 L (4.30-5.90) m/uL Hgb 9.7 L (13.0-17.5) gm/dL Hct 30.4 L (39.0-53.0) % Sodium 146 H (137-145) mmol/L Potassium 3.2 L (3.5-5.1) mmol/L Chloride 115 H (98-107) mmol/L Carbon Dioxide 14 L (22-30) mmol/L BUN 8 L (9-20) mg/dL Creatinine 0.52 L (0.66-1.25) mg/dL Glucose 139 H (74-99) mg/dL POC Glucose (mg/dL) 144 H (70-110) mg/dL Ur Random Potassium (25.0-125.0) mmol/L 09/03/24 09/03/24 09/03/24 Range/Units 15:58 16:11 16:44 RBC (4.30-5.90) m/uL Hgb (13.0-17.5) gm/dL Hct (39.0-53.0) % Sodium (137-145) mmol/L Potassium 3.3 L (3.5-5.1) mmol/L Chloride (98-107) mmol/L Carbon Dioxide (22-30) mmol/L BUN (9-20) mg/dL Creatinine (0.66-1.25) mg/dL Glucose (74-99) mg/dL POC Glucose (mg/dL) 170 H (70-110) mg/dL Ur Random Potassium 20.4 L (25.0-125.0) mmol/L 09/03/24 09/04/24 Range/Units 20:13 06:52 RBC (4.30-5.90) m/uL Hgb (13.0-17.5) gm/dL Hct (39.0-53.0) % Sodium (137-145) mmol/L Potassium (3.5-5.1) mmol/L Chloride (98-107) mmol/L Carbon Dioxide (22-30) mmol/L BUN (9-20) mg/dL Creatinine (0.66-1.25) mg/dL Glucose (74-99) mg/dL POC Glucose (mg/dL) 168 H 150 H (70-110) mg/dL Ur Random Potassium (25.0-125.0) mmol/L
[2024-09-04 16:21] LABS: Glucose,Whole Blood 130 mg/dL (70-110)
[2024-09-04 20:50] LABS: Glucose,Whole Blood 154 mg/dL (70-110)
[2024-09-05 04:36] LABS: Potassium 3.9 mmol/L (3.5-5.1)
[2024-09-05 04:38] LABS: African American GFR (CKD) >90 (>60 ml/min/1.73 sqM); Anion Gap 4 mmol/L; Blood Urea Nitrogen 11 mg/dL (9-20); Calcium 9.1 mg/dL (8.4-10.2); Carbon Dioxide 25 mmol/L (22-30); Chloride 110 mmol/L (98-107); Glucose 114 mg/dL (74-99); Magnesium 1.9 mg/dL (1.6-2.3); Non-African American GFR(CKD) >90 (>60 ml/min/1.73 sqM); Sodium 139 mmol/L (137-145)
[2024-09-05 04:48] LABS: HCT 32.1 % (39.0-53.0); HGB 10.4 gm/dL (13.0-17.5); Hypochromasia Moderate; MCH 31.1 pg (25.0-35.0); MCHC 32.3 g/dL (31.0-37.0); MCV 96.3 fL (80.0-100.0); Mean Platelet Volume 7.2; Platelet Count 267 k/uL (150-450); RBC 3.34 m/uL (4.30-5.90); RDW 12.5 % (11.5-15.5); WBC 5.5 k/uL (3.8-10.6)
[2024-09-05 06:56] LABS: Glucose,Whole Blood 120 mg/dL (70-110)
[2024-09-05] MEDS: POTASSIUM CHLORIDE ER 20 MEQ TAB.ER PO STA (10:29)
[2024-09-05] MEDS: POTASSIUM BICARBONATE/CIT AC 20 MEQ TABLET.EFF PO ONE (11:11)
[2024-09-05] MEDS: LACTATED RINGERS 1,000 ML with POTASSIUM CHLORIDE 40 MEQ IV SCH (11:11)
[2024-09-05 11:20] LABS: Glucose,Whole Blood 170 mg/dL (70-110)
--- NOTE | 2024-09-05 12:01 | P.PN ---
Subjective Progress Note Date: 09/05/24 CHIEF COMPLAINT: Gastric outlet obstruction HISTORY OF PRESENT ILLNESS: Patient is postop day #6 status post gastrojejunostomy for gastric outlet obstruction secondary to peptic ulcer disease of the duodenum. Patient's pain is controlled. He complained that the full liquids were too cold. He is having flatus. No bowel movement. Denies any nausea or vomiting. Afebrile. WBC 5.5 Hgb 10.4 potassium normal at 3.9 Patient seen and examined with Dr. Cardoso PHYSICAL EXAM: VITAL SIGNS: Reviewed. GENERAL: Well-developed in no acute distress. ABDOMEN: Soft. Nondistended. Prevena wound VAC dressing intact NEUROLOGIC: Alert and oriented. Cranial nerves II through XII grossly intact. ASSESSMENT: 1. Gastric outlet obstruction secondary to peptic ulcer disease of the duodenum 2. Hypokalemia followed by nephrology PLAN: -Advance diet to regular -Discontinue IV fluids -NO NSAIDS -Encourage patient to increase activity level. Will have patient shower today -Encouraged incentive spirometer use -DVT prophylaxis subcu heparin and GI prophylaxis Protonix Physician Propagation Worker note has been reviewed by physician. Signing provider agrees with the documented findings, assessment, and plan of care. Objective - Vital Signs Vital signs: Vital Signs Temp 98.4 F 09/05/24 07:45 Pulse 92 09/05/24 07:45 Resp 16 09/05/24 08:00 BP 119/71 09/05/24 07:45 Pulse Ox 93 L 09/05/24 07:45 FiO2 Intake & Output 09/04/24 09/05/24 09/05/24 18:59 06:59 18:59 Intake Total 780 950 Output Total 1500 450 Balance -720 500 Weight 69 kg Intake: Oral 780 950 Output: Urine 1500 450 Other: Voiding Method External Catheter External Catheter - Labs CBC & Chem 7: 09/05/24 02:43 09/05/24 02:43 Labs: Abnormal Lab Results - Last 24 Hours (Table) 09/04/24 09/04/24 09/05/24 Range/Units 16:20 20:48 02:43 RBC 3.34 L (4.30-5.90) m/uL Hgb 10.4 L (13.0-17.5) gm/dL Hct 32.1 L (39.0-53.0) % Chloride (98-107) mmol/L Creatinine (0.66-1.25) mg/dL Glucose (74-99) mg/dL POC Glucose (mg/dL) 130 H 154 H (70-110) mg/dL 09/05/24 09/05/24 09/05/24 Range/Units 02:43 06:54 11:18 RBC (4.30-5.90) m/uL Hgb (13.0-17.5) gm/dL Hct (39.0-53.0) % Chloride 110 H (98-107) mmol/L Creatinine 0.45 L (0.66-1.25) mg/dL Glucose 114 H (74-99) mg/dL POC Glucose (mg/dL) 120 H 170 H (70-110) mg/dL
--- NOTE | 2024-09-05 12:54 | P.PN ---
Subjective patient is seen for follow-up for hypokalemia. Serum potassium has improved and was 3.9 today. Maintained on LR with potassium at 100 mL an hour. Tolerating oral intake. Large urine output noted, although not accurately charted. Blood sugar is not significantly elevated. No significant complaints today. Objective - Vital Signs Vital signs: Vital Signs Temp 98.4 F 09/05/24 07:45 Pulse 92 09/05/24 07:45 Resp 16 09/05/24 08:00 BP 119/71 09/05/24 07:45 Pulse Ox 93 L 09/05/24 07:45 FiO2 Intake & Output 09/04/24 09/05/24 09/05/24 18:59 06:59 18:59 Intake Total 780 950 Output Total 1500 450 Balance -720 500 Weight 69 kg Intake: Oral 780 950 Output: Urine 1500 450 Other: Voiding Method External Catheter External Catheter - Exam Patient is awake, comfortable, no acute distress. Examination of the heart S1 and S2 Examination of the lungs bilateral breath sounds are heard Abdomen is soft nontender Examination of lower extremities shows no significant edema LINE SERVICE TECHNICIAN exam grossly intact - Labs CBC & Chem 7: 09/05/24 02:43 09/05/24 02:43 Labs: Abnormal Lab Results - Last 24 Hours (Table) 09/04/24 09/04/24 09/05/24 Range/Units 16:20 20:48 02:43 RBC 3.34 L (4.30-5.90) m/uL Hgb 10.4 L (13.0-17.5) gm/dL Hct 32.1 L (39.0-53.0) % Chloride (98-107) mmol/L Creatinine (0.66-1.25) mg/dL Glucose (74-99) mg/dL POC Glucose (mg/dL) 130 H 154 H (70-110) mg/dL 09/05/24 09/05/24 09/05/24 Range/Units 02:43 06:54 11:18 RBC (4.30-5.90) m/uL Hgb (13.0-17.5) gm/dL Hct (39.0-53.0) % Chloride 110 H (98-107) mmol/L Creatinine 0.45 L (0.66-1.25) mg/dL Glucose 114 H (74-99) mg/dL POC Glucose (mg/dL) 120 H 170 H (70-110) mg/dL Assessment and Plan Assessment: 1. Hypokalemia associated with bowel obstruction. No significant renal potassium wasting noted. Random urine potassium was 20. Magnesium is not significantly low. Continue with aggressive replacement. 2. Metabolic acidosis mostly non gap but significant anion gap metabolic acidosis on initial admission. This was mostly from DKA or starvation ketosis and had improved. 3. 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 Hypernatremia associated with free water deficit. Polyuria noted but not accurately documented. I will discontinue IV fluids and nursing staff is advised to document accurate urine output. Rule out underlying DI Plan: DC IV fluids Replace potassium Accurate I's and O's Repeat labs in a.m.
--- NOTE | 2024-09-05 12:56 | P.PN ---
Subjective Progress Note Date: 09/05/24 Hospital course: Patient is a very pleasant 69-year-old male with a past medical history of CAD with stents, status post stenting, hypertension, hyperlipidemia, [id number] diabetes mellitus, iron deficiency anemia, and gastric outlet obstruction with previous surgical repair requiring balloon dilation of small bowels. He presented to the hospital on 08/27/2024 secondary to reports of abdominal pain, nausea, and vomiting. Patient reports he has also had a decreased appetite and unable to hold anything down for 6 days secondary to worsening pain with intake. Upon arrival to our facility, patient underwent evaluation in the emergency department. Signs upon arrival show blood pressure 156/90, heart rate 103, respiratory rate 18, temp 97.7 F, and SpO2 of 99% on room air. EKG completed showing sinus rhythm at 99 bpm with occasional PAC and T wave inversion in inferior lateral leads which is a new finding when compared to EKG completed 03/20/2024. Labs completed and reviewed. CBC showing leukocytosis with WBC count of 15.4 otherwise normal findings. BMP showing hyponatremia with sodium of 3.1 and high anion gap metabolic acidosis with chloride of 106, bicarb of 12, and anion gap of 27. Blood glucose was 257. Lactic acid 3.6. Calcium slightly high at 11.1. Liver profile normal findings. Amylase and lipase also normal findings. Troponin 0.013 and 0.029. Stool occult was positive. Urinalysis was positive for protein, ketones, and glucose and acetone was also positive. EKG was completed showing normal sinus rhythm at 71 bpm with no significant T wave or ST abnormalities upon personal review and interpretation. Physical exam: Patient was seen and fully evaluated at bedside this morning. He is day 6 postop status post gastrojejunostomy. He appears to be doing well and tolerated full liquid diet this morning. He denies having any nausea or vomiting, reports passing flatus but has not yet had a bowel movement. Vital signs r to be taken down for surgical repaireviewed and stable. General: Nontoxic, no distress and appears stated age. Derm: Skin warm and dry, normal coloration for ethnicity. Head: Atraumatic, normocephalic and symmetric. Eyes: EOM's intact, no lid lag, and anicteric sclera Mouth: no lip lesions, mucus membranes moist Cardiovascular: regular rate and rhythm with normal S1S2, systolic murmur, and cap refill < 2 seconds. Lungs: Respirations even, regular, and unlabored on room air. Lungs CTA bilaterally, no rhonchi, no rales, no wheezing, and no accessory muscle usage. Abdominal: soft, diffuse tenderness upon palpation, no guarding, no appreciable organomegaly. WoundVac and dressing in place Ext: Movement and sensation intact. No gross muscle atrophy, no edema, no cont ractures. Patient with left BKA. Neuro: Speech clear, face symmetrical and CN II-XII grossly intact with no noted focal neuro deficits Psych: Alert and oriented to person, place, time, and situation. Appropriate and pleasant affect. Assessment and Plan of Care: Small bowel obstruction status post gastrojejunostomy Coffee-ground emesis Normocytic anemia History of gastric outlet obstruction requiring surgical repair with balloon dilations -Patient admitted under general surgery team and underwent gastrojejunostomy on 08/30/[address] Cardoso. -Encourage use of incentive spirometry. -Protonix 40 mg IVP twice daily -Hemoglobin currently stable at 10.4, will continue to monitor closely with repeat a.m. labs and transfuse if indicated for hemoglobin less than 7. -Telemetry monitoring High anion gap metabolic acidosis, secondary to starvation ketosis. Improving Hypokalemia Hypernatremia resolved Hypomagnesemia, resolved Polyuria -Patient with persistent hypokalemia despite over replacement. -Morning potassium remains low at 3.9. -Nephrology following secondary to persistent hypokalemia despite over replacement and polyuria over the last few days. Discussed in depth with Dr. Chery who is now managing potassium replacement. -Random urine potassium was low at 20.4. Urine osmolality is normal at 440 and serum osmolality was elevated at 302. -Continue to monitor electrolytes closely with repeat labs and replace abnormal electrolyte values as indicated based upon these findings. -Magnesium 1.9, patient to continue Mag-Ox 400 mg BID -DVT prophylaxis with SCDs. -Continue strict monitoring of I's and O's. Discussed with RN, urinary output was only documented once yesterday catheter was emptied multiple times, therefore inaccurate 24-hour documentation and notified de icer installer of an accurate output in chart. Isolated elevated temp -Believed to be secondary to postoperative atelectasis and he has remained isolated with no further episodes of elevated temp reported. -Patient to continue to use his incentive spirometer 10-15 times hourly while awake. -If patient develops further episodes of elevated temperatures or develops any other symptoms, will place additional orders such as order for chest x-ray at that time. History of CAD previous stenting of LAD Hypertension -Continue to Hold aspirin and Plavix at this time secondary to coffee-ground emesis and recent surgical procedure with gastrojejunostomy. May resume diet once cleared by general surgery team. -Patient to remain on telemetry monitoring. -Patient to continue cardiac medication regimen with amlodipine 10 mg nightly, lisinopril 40 mg daily, metoprolol 100 mg daily, and rosuvastatin 5 mg daily. Lactic Acidosis, resolved with IV fluid hydration Severe dehydration on arrival Data and imaging reviewed: -Morning labs reviewed CBC showing stable normocytic anemia with hemoglobin of 10.4. BMP showing sodium 139, potassium 3.9, chloride 110, bicarb 25, and anion gap of 4. Blood glucose 114. Magnesium 1.9. -Vital signs reviewed. Blood pressure 119/71, heart rate 92, respiratory rate 16, temp 98.4 F, and SpO2 of 93% on room air. Discussed plan of care in detail with general surgery PA and de icer installer again today. DVT prophylaxis with SCDs. Thank you for allowing us to participate in the care of this pleasant patient. Do not hesitate to contact us with questions. Someone can be reached from the [facility] hospitalist group all hours of the day at [phone] or via [employer] serve. Patient was seen independently by Nurse Pracitioner. This document was prepared using Earnest dictation software. Please allow for errors in demonstrator knitting, while rare they do occur. I reviewed the documentation as provided by the DARSHANA above, who is the original author of this note. I agree with the documented assessment and plan, with the following changes: none Objective - Vital Signs Vital signs: Vital Signs Temp 98.4 F 09/05/24 07:45 Pulse 92 09/05/24 07:45 Resp 16 09/05/24 07:45 BP 119/71 09/05/24 07:45 Pulse Ox 93 L 09/05/24 07:45 FiO2 Intake & Output 09/04/24 09/05/24 09/05/24 18:59 06:59 18:59 Intake Total 780 Output Total 1500 Balance -720 Weight 69 kg Intake: Oral 780 Output: Urine 1500 Other: Voiding Method External Catheter - Labs CBC & Chem 7: 09/05/24 02:43 09/05/24 02:43 Labs: Abnormal Lab Results - Last 24 Hours (Table) 09/03/24 09/04/24 09/04/24 Range/Units 15:58 02:49 02:49 RBC 3.07 L (4.40-5.60) X 10*6/uL Hgb 9.3 L (13.0-17.0) g/dL Hct 27.9 L (39.6-50.0) % MPV 9.3 L (9.5-12.2) FL Potassium 3.3 L (3.5-5.5) mmol/L Chloride 110 H (96-109) mmol/L Anion Gap 12.40 H (4.00-12.00) mmol/L BUN 8.6 L (9.0-27.0) mg/dL Creatinine 0.4 L (0.6-1.5) mg/dL BUN/Creatinine Ratio 21.50 H (12.00-20.00) Ratio Glucose 150 H (70-110) mg/dL POC Glucose (mg/dL) (70-110) mg/dL Osmolality 302 H (275-295) mOsm/kg 09/04/24 09/04/24 09/04/24 Range/Units 11:38 16:20 20:48 RBC (4.40-5.60) X 10*6/uL Hgb (13.0-17.0) g/dL Hct (39.6-50.0) % MPV (9.5-12.2) FL Potassium (3.5-5.5) mmol/L Chloride (96-109) mmol/L Anion Gap (4.00-12.00) mmol/L BUN (9.0-27.0) mg/dL Creatinine (0.6-1.5) mg/dL BUN/Creatinine Ratio (12.00-20.00) Ratio Glucose (70-110) mg/dL POC Glucose (mg/dL) 197 H 130 H 154 H (70-110) mg/dL Osmolality (275-295) mOsm/kg 09/05/24 09/05/24 09/05/24 Range/Units 02:43 02:43 06:54 RBC 3.34 L (4.40-5.60) X 10*6/uL Hgb 10.4 L (13.0-17.0) g/dL Hct 32.1 L (39.6-50.0) % MPV (9.5-12.2) FL Potassium (3.5-5.5) mmol/L Chloride 110 H (96-109) mmol/L Anion Gap (4.00-12.00) mmol/L BUN (9.0-27.0) mg/dL Creatinine 0.45 L (0.6-1.5) mg/dL BUN/Creatinine Ratio (12.00-20.00) Ratio Glucose 114 H (70-110) mg/dL POC Glucose (mg/dL) 120 H (70-110) mg/dL Osmolality (275-295) mOsm/kg
[2024-09-05 14:00] VITALS: BMI 23.1
[2024-09-05 17:16] LABS: Glucose,Whole Blood 129 mg/dL (70-110)
[2024-09-05 20:56] LABS: Glucose,Whole Blood 142 mg/dL (70-110)
[2024-09-06 01:27] LABS: Glucose,Whole Blood 116 mg/dL (70-110)
[2024-09-06 07:03] LABS: Glucose,Whole Blood 93 mg/dL (70-110)
[2024-09-06 08:40] LABS: Blood Urea Nitrogen 12.4 mg/dL (9.0-27.0); Calcium 9.2 mg/dL (8.7-10.3); Carbon Dioxide 27.5 mmol/L (21.6-31.8); Chloride 102 mmol/L (96-109); Glucose 111 mg/dL (70-110); Magnesium 1.9 mg/dL (1.5-2.4); Potassium 3.8 mmol/L (3.5-5.5); Sodium 140 mmol/L (135-145)
[2024-09-06 08:43] LABS: HCT 31.1 % (39.6-50.0); HGB 9.9 g/dL (13.0-17.0); MCH 30.5 pg (27.0-32.0); MCHC 31.8 g/dL (32.0-37.0); MCV 95.7 FL (80.0-97.0); Mean Platelet Volume 9.8 FL (9.5-12.2); NRBC Per 100 WBC 0 X 10*3/uL (0.00-0.01); Platelet Count 252 X 10*3/uL (140-440); RBC 3.25 X 10*6/uL (4.40-5.60); RDW 12.8 % (11.5-14.5); WBC 5.81 X 10*3/uL (4.50-10.00)
[2024-09-06] MEDS: POTASSIUM CHLORIDE ER 20 MEQ TAB.ER PO STA (11:21)
[2024-09-06 11:54] LABS: Glucose,Whole Blood 171 mg/dL (70-110)
--- NOTE | 2024-09-06 12:31 | P.PN ---
Subjective patient is seen for follow-up for hypokalemia. Serum potassium has improved and was 3.8 today. off of IV fluids. Serum sodium at 140. 24 hour urine output at 1100 mL. Objective - Vital Signs Vital signs: Vital Signs Temp 98.4 F 09/06/24 07:05 Pulse 103 H 09/06/24 07:05 Resp 16 09/06/24 07:05 BP 101/62 09/06/24 07:05 Pulse Ox 94 L 09/06/24 07:05 FiO2 Intake & Output 09/05/24 09/06/24 09/06/24 18:59 06:59 18:59 Intake Total 1070 250 Output Total 1100 650 Balance -30 -400 Weight 69 kg 69 kg Intake: Oral 1070 250 Output: Urine 1100 650 Other: Voiding Method External Catheter - Exam Patient is awake, comfortable, no acute distress. Examination of the heart S1 and S2 Examination of the lungs bilateral breath sounds are heard Abdomen is soft nontender Examination of lower extremities shows no significant edema ENVIRONMENTAL WEB CRAWLER exam grossly intact - Labs CBC & Chem 7: 09/06/24 03:23 09/06/24 03:23 Labs: Abnormal Lab Results - Last 24 Hours (Table) 09/05/24 09/05/24 09/06/24 Range/Units 17:14 20:54 01:23 RBC (4.40-5.60) X 10*6/uL Hgb (13.0-17.0) g/dL Hct (39.6-50.0) % MCHC (32.0-37.0) g/dL Creatinine (0.6-1.5) mg/dL BUN/Creatinine Ratio (12.00-20.00) Ratio Glucose (70-110) mg/dL POC Glucose (mg/dL) 129 H 142 H 116 H (70-110) mg/dL 09/06/24 09/06/24 09/06/24 Range/Units 03:23 03:23 11:53 RBC 3.25 L (4.40-5.60) X 10*6/uL Hgb 9.9 L (13.0-17.0) g/dL Hct 31.1 L (39.6-50.0) % MCHC 31.8 L (32.0-37.0) g/dL Creatinine 0.5 L (0.6-1.5) mg/dL BUN/Creatinine Ratio 24.80 H (12.00-20.00) Ratio Glucose 111 H (70-110) mg/dL POC Glucose (mg/dL) 171 H (70-110) mg/dL Assessment and Plan Assessment: 1. Hypokalemia associated with bowel obstruction. No significant renal potassium wasting noted. Random urine potassium was 20. Magnesium is not significantly low. Continue with aggressive replacement. 2. Metabolic acidosis mostly non gap but significant anion gap metabolic acidosis on initial admission. This was mostly from DKA or starvation ketosis and had improved. 3. 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 Hypernatremia associated with free water deficit. Polyuria noted initially but has resolved now. Serum sodium at 140 and patient has been off of IV fluids. Plan: continue off of IV fluids Replace potassium
--- NOTE | 2024-09-06 13:41 | P.PN ---
Subjective Progress Note Date: 09/06/24 Subjective: Patient seen and examined at bedside. No acute events overnight. Making adequate urine. Has an external [place] catheter. Still complaining of abdominal bloating. Passing flatus. No bowel movements at the moment. No nausea or vomiting. Pertinent positives and negatives as discussed above, a complete review of systems was performed and all other systems are negative. Vitals Signs Reviewed. General: Nontoxic, no distress, appears at stated age Derm: Warm, dry Head: Atraumatic, normocephalic, symmetric Eyes: EOMI, no lid lag, anicteric sclera Mouth: No lip lesion, mucus membranes moist Cardiovascular: S1S2 reg, no murmur Lungs: CTA bilateral, no rhonchi, no rales, no accessory muscle use Abdominal: Soft, distended, nontender to palpation, no guarding, no appreciable organomegaly Ext: No gross muscle atrophy, no edema, no contractures Neuro: CN II-XI grossly intact, no focal neuro deficits Psych: Alert, oriented, appropriate affect Data Reviewed Today: Pertinent Labs: WBC 5.81, hemoglobin 9.9, creatinine 0.5, potassium 3.8, magnesium 1.9, blood glucose range between 93-1 71. Imaging: No new imaging Assessment and Plan: Small bowel obstruction status post gastrojejunostomy Coffee-ground emesis, resolved Normocytic anemia, stable History of gastric outlet obstruction requiring surgical repair with balloon dilations -Patient on regular diet, passing flatus -Continued on IV Protonix 40 twice daily, consider switching to oral -General Surgery following -Repeat CBC tomorrow Hypokalemia Hypernatremia resolved Hypomagnesemia, resolved Polyuria, resolved High anion gap metabolic acidosis, secondary to starvation ketosis and lactic acidosis, resolved Dehydration, resolved -Discussed management with nephrology, 40 more milliequivalents of oral potassium today -Magnesium oxide 400 twice daily -Repeat BMP and magnesium tomorrow Isolated elevated temp, resolved History of CAD previous stenting of LAD Hypertension -Continue to Hold aspirin and Plavix at this time secondary to coffee-ground emesis and recent surgical procedure with gastrojejunostomy. May resume diet once cleared by general surgery team. -Patient to remain on telemetry monitoring. -Patient to continue cardiac medication regimen with amlodipine 10 mg nightly, lisinopril 40 mg daily, metoprolol 100 mg daily, and rosuvastatin 5 mg daily. Type 2 diabetes -Hold home medications -Sliding scale insulin, ACHS, monitor for hypoglycemia -Levemir 10 units nightly Thank you for allowing us to participate in the care of this pleasant patient. Do not hesitate to contact us with questions. Someone can be reached from the [facility] hospitalist group all hours of the day at [phone] or via perfect serve. Objective - Vital Signs Vital signs: Vital Signs Temp 98.4 F 09/06/24 07:05 Pulse 103 H 09/06/24 07:05 Resp 16 09/06/24 07:05 BP 101/62 09/06/24 07:05 Pulse Ox 94 L 09/06/24 07:05 FiO2 Intake & Output 09/05/24 09/06/24 09/06/24 18:59 06:59 18:59 Intake Total 1070 250 Output Total 1100 650 Balance -30 -400 Weight 69 kg 69 kg Intake: Oral 1070 250 Output: Urine 1100 650 Other: Voiding Method External Catheter - Labs CBC & Chem 7: 09/06/24 03:23 09/06/24 03:23 Labs: Abnormal Lab Results - Last 24 Hours (Table) 09/05/24 09/05/24 09/06/24 Range/Units 17:14 20:54 01:23 RBC (4.40-5.60) X 10*6/uL Hgb (13.0-17.0) g/dL Hct (39.6-50.0) % MCHC (32.0-37.0) g/dL Creatinine (0.6-1.5) mg/dL BUN/Creatinine Ratio (12.00-20.00) Ratio Glucose (70-110) mg/dL POC Glucose (mg/dL) 129 H 142 H 116 H (70-110) mg/dL 09/06/24 09/06/24 09/06/24 Range/Units 03:23 03:23 11:53 RBC 3.25 L (4.40-5.60) X 10*6/uL Hgb 9.9 L (13.0-17.0) g/dL Hct 31.1 L (39.6-50.0) % MCHC 31.8 L (32.0-37.0) g/dL Creatinine 0.5 L (0.6-1.5) mg/dL BUN/Creatinine Ratio 24.80 H (12.00-20.00) Ratio Glucose 111 H (70-110) mg/dL POC Glucose (mg/dL) 171 H (70-110) mg/dL
--- NOTE | 2024-09-06 14:33 | P.PN ---
Subjective Progress Note Date: 09/06/24 CHIEF COMPLAINT: Gastric outlet obstruction HISTORY OF PRESENT ILLNESS: Patient is postop day #7 status post gastrojejunostomy for gastric outlet obstruction secondary to peptic ulcer disease of the duodenum. Patient's pain is controlled. He is tolerating regular diet. He is having flatus. Still no bowel movement. Afebrile. WBC 5.81 Hgb 9.9 platelets 252 potassium 3.8 PHYSICAL EXAM: VITAL SIGNS: Reviewed. GENERAL: Well-developed in no acute distress. ABDOMEN: Soft. Nondistended. Prevena wound VAC dressing intact NEUROLOGIC: Alert and oriented. Cranial nerves II through XII grossly intact. ASSESSMENT: 1. Gastric outlet obstruction secondary to peptic ulcer disease of the duodenum 2. Hypokalemia resolved PLAN: -Anticipate discharge possibly tomorrow -Continue regular diet -Dulcolax suppository added for constipation -NO NSAIDS -Encourage patient to increase activity level -Encouraged incentive spirometer use -DVT prophylaxis subcu heparin and GI prophylaxis Protonix Physician Nougat Candy Maker Helper note has been reviewed by physician. Signing provider agrees with the documented findings, assessment, and plan of care. Objective - Vital Signs Vital signs: Vital Signs Temp 98.4 F 09/06/24 07:05 Pulse 103 H 09/06/24 07:05 Resp 16 09/06/24 07:05 BP 101/62 09/06/24 07:05 Pulse Ox 94 L 09/06/24 07:05 FiO2 Intake & Output 09/05/24 09/06/24 09/06/24 18:59 06:59 18:59 Intake Total 1070 250 Output Total 1100 650 Balance -30 -400 Weight 69 kg 69 kg Intake: Oral 1070 250 Output: Urine 1100 650 Other: Voiding Method External Catheter - Labs CBC & Chem 7: 09/06/24 03:23 09/06/24 03:23 Labs: Abnormal Lab Results - Last 24 Hours (Table) 09/05/24 09/05/24 09/06/24 Range/Units 17:14 20:54 01:23 RBC (4.40-5.60) X 10*6/uL Hgb (13.0-17.0) g/dL Hct (39.6-50.0) % MCHC (32.0-37.0) g/dL Creatinine (0.6-1.5) mg/dL BUN/Creatinine Ratio (12.00-20.00) Ratio Glucose (70-110) mg/dL POC Glucose (mg/dL) 129 H 142 H 116 H (70-110) mg/dL 09/06/24 09/06/24 09/06/24 Range/Units 03:23 03:23 11:53 RBC 3.25 L (4.40-5.60) X 10*6/uL Hgb 9.9 L (13.0-17.0) g/dL Hct 31.1 L (39.6-50.0) % MCHC 31.8 L (32.0-37.0) g/dL Creatinine 0.5 L (0.6-1.5) mg/dL BUN/Creatinine Ratio 24.80 H (12.00-20.00) Ratio Glucose 111 H (70-110) mg/dL POC Glucose (mg/dL) 171 H (70-110) mg/dL
[2024-09-06 16:06] LABS: Glucose,Whole Blood 121 mg/dL (70-110)
[2024-09-06] MEDS: INSULIN ASPART (NovoLOG) 100 UNIT/ML VIAL SQ SCH (17:03)
[2024-09-06] MEDS: bisacodyL 10 MG SUPP RECTAL STA (19:57)
[2024-09-06 20:37] LABS: Glucose,Whole Blood 130 mg/dL (70-110)
[2024-09-07 06:20] LABS: Glucose,Whole Blood 112 mg/dL (70-110)
[2024-09-07 08:21] LABS: Basophils # (A) 0.02 X 10*3/uL (0.00-0.10); Basophils % (A) 0.3 %; Eosinophils # (A) 0.18 X 10*3/uL (0.04-0.35); HCT 30.8 % (39.6-50.0); HGB 9.8 g/dL (13.0-17.0); Lymphocytes # (A) 1.27 X 10*3/uL (0.90-5.00); Lymphocytes % (A) 20.9 %; MCH 30.2 pg (27.0-32.0); MCHC 31.8 g/dL (32.0-37.0); MCV 94.8 FL (80.0-97.0); Monocytes # (A) 0.63 X 10*3/uL (0.20-1.00); Monocytes % (A) 10.4 %; NRBC Per 100 WBC 0 X 10*3/uL (0.00-0.01); Neutrophils # (A) 3.94 X 10*3/uL (1.80-7.70); Neutrophils % (A) 64.9 %; Platelet Count 281 X 10*3/uL (140-440); RBC 3.25 X 10*6/uL (4.40-5.60); RDW 12.7 % (11.5-14.5); WBC 6.07 X 10*3/uL (4.50-10.00)
[2024-09-07 09:03] LABS: BUN/Creat Ratio 24.86 Ratio (12.00-20.00); Blood Urea Nitrogen 17.4 mg/dL (9.0-27.0); Calcium 9.4 mg/dL (8.7-10.3); Carbon Dioxide 27.9 mmol/L (21.6-31.8); Chloride 104 mmol/L (96-109); Glucose 134 mg/dL (70-110); Potassium 4.3 mmol/L (3.5-5.5); Sodium 143 mmol/L (135-145)
[2024-09-07 11:55] LABS: Glucose,Whole Blood 191 mg/dL (70-110)
--- NOTE | 2024-09-07 14:22 | P.PN ---
Subjective Progress Note Date: 09/07/24 CHIEF COMPLAINT: Gastric outlet obstruction HISTORY OF PRESENT ILLNESS: Patient is postop day #8 status post gastrojejunostomy for gastric outlet obstruction secondary to peptic ulcer disease of the duodenum. Patient's pain is controlled. He is tolerating regular diet. He is having flatus. Still no bowel movement. He refused the suppository. Afebrile. WBC 6.07 Hgb 9.8 platelets 281. Patient is working on arranging things at home to be discharged tomorrow. PHYSICAL EXAM: VITAL SIGNS: Reviewed. GENERAL: Well-developed in no acute distress. ABDOMEN: Soft. Nondistended. Prevena wound VAC dressing intact NEUROLOGIC: Alert and oriented. Cranial nerves II through XII grossly intact. ASSESSMENT: 1. Gastric outlet obstruction secondary to peptic ulcer disease of the duodenum 2. Hypokalemia resolved PLAN: -Plan for discharge tomorrow -[place] added for oral pain medication -Continue regular diet -NO NSAIDS -Encourage patient to increase activity level -Encouraged incentive spirometer use -DVT prophylaxis subcu heparin and GI prophylaxis Protonix Physician Contract Serviceman note has been reviewed by physician. Signing provider agrees with the documented findings, assessment, and plan of care. Objective - Vital Signs Vital signs: Vital Signs Temp 98.3 F 09/07/24 07:07 Pulse 90 09/07/24 10:48 Resp 17 09/07/24 10:48 BP 119/72 09/07/24 07:07 Pulse Ox 94 L 09/07/24 07:07 FiO2 Intake & Output 09/06/24 09/07/24 09/07/24 18:59 06:59 18:59 Intake Total 250 650 Output Total 650 650 Balance -400 0 Weight 68 kg Intake: Oral 250 650 Output: Urine 650 650 Other: Voiding Method External Catheter External Catheter External Catheter # Voids 1 - Labs CBC & Chem 7: 09/07/24 03:45 09/07/24 03:45 Labs: Abnormal Lab Results - Last 24 Hours (Table) 09/06/24 09/06/24 09/07/24 Range/Units 16:04 20:35 03:45 RBC 3.25 L (4.40-5.60) X 10*6/uL Hgb 9.8 L (13.0-17.0) g/dL Hct 30.8 L (39.6-50.0) % MCHC 31.8 L (32.0-37.0) g/dL BUN/Creatinine Ratio (12.00-20.00) Ratio Glucose (70-110) mg/dL POC Glucose (mg/dL) 121 H 130 H (70-110) mg/dL 09/07/24 09/07/24 09/07/24 Range/Units 03:45 06:19 11:54 RBC (4.40-5.60) X 10*6/uL Hgb (13.0-17.0) g/dL Hct (39.6-50.0) % MCHC (32.0-37.0) g/dL BUN/Creatinine Ratio 24.86 H (12.00-20.00) Ratio Glucose 134 H (70-110) mg/dL POC Glucose (mg/dL) 112 H 191 H (70-110) mg/dL
--- NOTE | 2024-09-07 15:17 | P.PN ---
Subjective Progress Note Date: 09/07/24 Subjective: Patient seen and examined at bedside. No acute events overnight. No BMs, but tolerating PO well. Asks about discharge today, and is medically cleared from our standpoint Pertinent positives and negatives as discussed above, a complete review of systems was performed and all other systems are negative. Vitals Signs Reviewed. General: Nontoxic, no distress, appears at stated age Derm: Warm, dry Head: Atraumatic, normocephalic, symmetric Eyes: EOMI, no lid lag, anicteric sclera Mouth: No lip lesion, mucus membranes moist Cardiovascular: S1S2 reg, no murmur Lungs: CTA bilateral, no rhonchi, no rales, no accessory muscle use Abdominal: Soft, distended, nontender to palpation, no guarding, no appreciable organomegaly Ext: No gross muscle atrophy, no edema, no contractures Neuro: CN II-XI grossly intact, no focal neuro deficits Psych: Alert, oriented, appropriate affect Data Reviewed Today: Pertinent Labs: WBC 5.81, hemoglobin 9.9, creatinine 0.5, potassium 3.8, magnesium 1.9, blood glucose range between 93-1 71. Imaging: No new imaging Assessment and Plan: Small bowel obstruction status post gastrojejunostomy Coffee-ground emesis, resolved Normocytic anemia, stable History of gastric outlet obstruction requiring surgical repair with balloon dilations -Patient on regular diet, passing flatus -Continued on IV Protonix 40 twice daily, consider switching to oral -General Surgery following -Repeat CBC tomorrow Hypokalemia Hypernatremia resolved Hypomagnesemia, resolved Polyuria, resolved High anion gap metabolic acidosis, secondary to starvation ketosis and lactic acidosis, resolved Dehydration, resolved -Discussed management with nephrology, 40 more milliequivalents of oral potassium today -Magnesium oxide 400 twice daily -Repeat BMP and magnesium tomorrow Isolated elevated temp, resolved History of CAD previous stenting of LAD Hypertension -Continue to Hold aspirin and Plavix at this time secondary to coffee-ground emesis and recent surgical procedure with gastrojejunostomy. May resume diet once cleared by general surgery team. -Patient to remain on telemetry monitoring. -Patient to continue cardiac medication regimen with amlodipine 10 mg nightly, lisinopril 40 mg daily, metoprolol 100 mg daily, and rosuvastatin 5 mg daily. Type 2 diabetes -Hold home medications -Sliding scale insulin, ACHS, monitor for hypoglycemia -Levemir 10 units nightly Thank you for allowing us to participate in the care of this pleasant patient. Do not hesitate to contact us with questions. Someone can be reached from the [facility] hospitalist group all hours of the day at [phone] or via perfect serve. Objective - Vital Signs Vital signs: Vital Signs Temp 98.3 F 09/07/24 07:07 Pulse 90 09/07/24 10:48 Resp 17 09/07/24 10:48 BP 119/72 09/07/24 07:07 Pulse Ox 94 L 09/07/24 07:07 FiO2 Intake & Output 09/06/24 09/07/24 09/07/24 18:59 06:59 18:59 Intake Total 250 1050 Output Total 650 650 Balance -400 400 Weight 68 kg Intake: Oral 250 1050 Output: Urine 650 650 Other: Voiding Method External Catheter External Catheter External Catheter # Voids 1 - Labs CBC & Chem 7: 09/07/24 03:45 09/07/24 03:45 Labs: Abnormal Lab Results - Last 24 Hours (Table) 09/06/24 09/06/24 09/07/24 Range/Units 16:04 20:35 03:45 RBC 3.25 L (4.40-5.60) X 10*6/uL Hgb 9.8 L (13.0-17.0) g/dL Hct 30.8 L (39.6-50.0) % MCHC 31.8 L (32.0-37.0) g/dL BUN/Creatinine Ratio (12.00-20.00) Ratio Glucose (70-110) mg/dL POC Glucose (mg/dL) 121 H 130 H (70-110) mg/dL 09/07/24 09/07/24 09/07/24 Range/Units 03:45 06:19 11:54 RBC (4.40-5.60) X 10*6/uL Hgb (13.0-17.0) g/dL Hct (39.6-50.0) % MCHC (32.0-37.0) g/dL BUN/Creatinine Ratio 24.86 H (12.00-20.00) Ratio Glucose 134 H (70-110) mg/dL POC Glucose (mg/dL) 112 H 191 H (70-110) mg/dL
--- NOTE | 2024-09-07 16:04 | P.PN ---
Subjective patient is seen for follow-up for hypokalemia. Serum potassium has improved and was 4.3 today. off of IV fluids. Serum sodium at 143. 24 hour urine output at 1100 mL. Objective - Vital Signs Vital signs: Vital Signs Temp 98.3 F 09/07/24 07:07 Pulse 90 09/07/24 10:48 Resp 17 09/07/24 10:48 BP 119/72 09/07/24 07:07 Pulse Ox 94 L 09/07/24 07:07 FiO2 Intake & Output 09/06/24 09/07/24 09/07/24 18:59 06:59 18:59 Intake Total 250 1050 Output Total 650 650 Balance -400 400 Weight 68 kg Intake: Oral 250 1050 Output: Urine 650 650 Other: Voiding Method External Catheter External Catheter External Catheter # Voids 1 - Exam Patient is awake, comfortable, no acute distress. Examination of the heart S1 and S2 Examination of the lungs bilateral breath sounds are heard Abdomen is soft nontender Examination of lower extremities shows no significant edema TACTICAL [employer] CONTROL PARTY MANAGER exam grossly intact - Labs CBC & Chem 7: 09/07/24 03:45 09/07/24 03:45 Labs: Abnormal Lab Results - Last 24 Hours (Table) 09/06/24 09/06/24 09/07/24 Range/Units 16:04 20:35 03:45 RBC 3.25 L (4.40-5.60) X 10*6/uL Hgb 9.8 L (13.0-17.0) g/dL Hct 30.8 L (39.6-50.0) % MCHC 31.8 L (32.0-37.0) g/dL BUN/Creatinine Ratio (12.00-20.00) Ratio Glucose (70-110) mg/dL POC Glucose (mg/dL) 121 H 130 H (70-110) mg/dL 09/07/24 09/07/24 09/07/24 Range/Units 03:45 06:19 11:54 RBC (4.40-5.60) X 10*6/uL Hgb (13.0-17.0) g/dL Hct (39.6-50.0) % MCHC (32.0-37.0) g/dL BUN/Creatinine Ratio 24.86 H (12.00-20.00) Ratio Glucose 134 H (70-110) mg/dL POC Glucose (mg/dL) 112 H 191 H (70-110) mg/dL Assessment and Plan Assessment: 1. Hypokalemia associated with bowel obstruction and GI fluid loss. No significant renal potassium wasting noted. Random urine potassium was 20. Magnesium is not significantly low. Continue with aggressive replacement. 2. Metabolic acidosis mostly non gap but significant anion gap metabolic acidosis on initial admission. This was mostly from DKA or starvation ketosis and had improved. 3. 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 Hypernatremia associated with free water deficit. Polyuria noted initially but has resolved now. Plan: continue off of IV fluids Okay to discharge from nephrology standpoint. Repeat labs as outpatient in 1 to 2 days.
[2024-09-07 16:33] LABS: Glucose,Whole Blood 125 mg/dL (70-110)
[2024-09-07] MEDS: HYDROcodone/APAP 5-325MG 1 EACH TAB PO PRN (17:34)
[2024-09-07 20:28] LABS: Glucose,Whole Blood 182 mg/dL (70-110)
[2024-09-08 01:10] VITALS: TEMP 98.2
[2024-09-08 06:32] LABS: Glucose,Whole Blood 136 mg/dL (70-110)
[2024-09-08 09:42] VITALS: BP 105/66; PULSE 110; RESP 17
[2024-09-08 12:02] LABS: Glucose,Whole Blood 168 mg/dL (70-110)
--- NOTE | 2024-09-08 12:13 | P.PN ---
Subjective Progress Note Date: 09/08/24 Patient is seen for follow-up for hypokalemia. Serum potassium has improved. Patient is awake, comfortable, no acute distress. Examination of the heart S1 and S2 Examination of the lungs bilateral breath sounds are heard Abdomen is soft nontender Examination of lower extremities shows no significant edema HOSPITAL ACCOUNT MANAGER exam grossly intact Objective - Vital Signs Vital signs: Vital Signs Temp 98.2 F 09/08/24 09:01 Pulse 110 H 09/08/24 09:01 Resp 17 09/08/24 09:01 BP 105/66 09/08/24 09:01 Pulse Ox 95 09/08/24 09:01 FiO2 Intake & Output 09/07/24 09/08/24 09/08/24 18:59 06:59 18:59 Intake Total 1400 1000 Output Total 1350 700 Balance 50 300 Intake: Oral 1400 1000 Output: Urine 1350 700 Other: Voiding Method External Catheter External Catheter # Voids 1 3 - Labs CBC & Chem 7: 09/07/24 03:45 09/07/24 03:45 Labs: Abnormal Lab Results - Last 24 Hours (Table) 09/07/24 09/07/24 09/07/24 Range/Units 11:54 16:32 20:27 POC Glucose (mg/dL) 191 H 125 H 182 H (70-110) mg/dL 09/08/24 Range/Units 06:31 POC Glucose (mg/dL) 136 H (70-110) mg/dL Assessment and Plan Assessment: 1. Hypokalemia associated with bowel obstruction and GI fluid loss. No significant renal potassium wasting noted. Random urine potassium was 20. Magnesium is not significantly low. Improved with aggressive replacement. 2. Metabolic acidosis mostly non gap but significant anion gap metabolic acidosis on initial admission. This was mostly from DKA or starvation ketosis and had improved. 3. 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 Hypernatremia associated with free water deficit. Polyuria noted initially but has resolved now. Plan: continue off of IV fluids Okay to discharge from nephrology standpoint. Repeat labs as outpatient in 1 to 2 days.
--- NOTE | 2024-09-08 14:09 | P.PN ---
Subjective Progress Note Date: 09/08/24 Subjective: Patient seen and examined at bedside. No acute events overnight. Medically stable for discharge. Vitals Signs Reviewed. General: Nontoxic, no distress, appears at stated age Derm: Warm, dry Head: Atraumatic, normocephalic, symmetric Eyes: EOMI, no lid lag, anicteric sclera Mouth: No lip lesion, mucus membranes moist Cardiovascular: S1S2 reg, no murmur Lungs: CTA bilateral, no rhonchi, no rales, no accessory muscle use Abdominal: Soft, distended, nontender to palpation, no guarding, no appreciable organomegaly Ext: No gross muscle atrophy, no edema, no contractures Neuro: CN II-XI grossly intact, no focal neuro deficits Psych: Alert, oriented, appropriate affect Data Reviewed Today: Pertinent Labs: WBC 5.81, hemoglobin 9.9, creatinine 0.5, potassium 3.8, magnesium 1.9, blood glucose range between 93-1 71. Imaging: No new imaging Assessment and Plan: Small bowel obstruction status post gastrojejunostomy Coffee-ground emesis, resolved Normocytic anemia, stable History of gastric outlet obstruction requiring surgical repair with balloon dilations -Patient on regular diet, passing flatus -Continued on IV Protonix 40 twice daily, consider switching to oral -General Surgery following -Repeat CBC tomorrow Hypokalemia Hypernatremia resolved Hypomagnesemia, resolved Polyuria, resolved High anion gap metabolic acidosis, secondary to starvation ketosis and lactic acidosis, resolved Dehydration, resolved -Discussed management with nephrology, 40 more milliequivalents of oral potassium today -Magnesium oxide 400 twice daily -Repeat BMP and magnesium tomorrow Isolated elevated temp, resolved History of CAD previous stenting of LAD Hypertension -Continue to Hold aspirin and Plavix at this time secondary to coffee-ground emesis and recent surgical procedure with gastrojejunostomy. May resume diet once cleared by general surgery team. -Patient to remain on telemetry monitoring. -Patient to continue cardiac medication regimen with amlodipine 10 mg nightly, lisinopril 40 mg daily, metoprolol 100 mg daily, and rosuvastatin 5 mg daily. Type 2 diabetes -Hold home medications -Sliding scale insulin, ACHS, monitor for hypoglycemia -Levemir 10 units nightly Thank you for allowing us to participate in the care of this pleasant patient. Do not hesitate to contact us with questions. Someone can be reached from the [facility] hospitalist group all hours of the day at [phone] or via perfect serve. Objective - Vital Signs Vital signs: Vital Signs Temp 98.2 F 09/08/24 09:01 Pulse 110 H 09/08/24 09:01 Resp 17 09/08/24 09:01 BP 105/66 09/08/24 09:01 Pulse Ox 95 09/08/24 09:01 FiO2 Intake & Output 09/07/24 09/08/24 09/08/24 18:59 06:59 18:59 Intake Total 1400 1000 Output Total 1350 700 300 Balance 50 300 -300 Intake: Oral 1400 1000 Output: Urine 1350 700 300 Other: Voiding Method External Catheter External Catheter External Catheter # Voids 1 3 - Labs CBC & Chem 7: 09/07/24 03:45 09/07/24 03:45 Labs: Abnormal Lab Results - Last 24 Hours (Table) 09/07/24 09/07/24 09/08/24 Range/Units 16:32 20:27 06:31 POC Glucose (mg/dL) 125 H 182 H 136 H (70-110) mg/dL 09/08/24 Range/Units 12:00 POC Glucose (mg/dL) 168 H (70-110) mg/dL
--- NOTE | 2024-09-08 15:46 | P.DS ---
Providers Date of admission: 08/27/24 21:30 Expected date of discharge: 09/08/24 Attending physician: Major Cardoso Consults: 08/27/24 21:23 Consult Physician Routine Consulting Provider: Arianne Lassiter Consult Reason/Comments: Medicine consult Do you want consulting provider notified?: Yes, Notify in am 09/03/24 11:50 Consult Physician Routine Consulting Provider: Suzette Chery Consult Reason/Comments: persistent hypokalemia despite replacement Do you want consulting provider notified?: Yes Primary care physician: [facility] Course: CHIEF COMPLAINT: Gastric outlet obstruction HISTORY OF PRESENT ILLNESS: The patient is a 69-year-old male with gastric outlet obstruction status post gastrojejunostomy. Patient is doing well. He is tolerating diet. Patient reports he has everything he needs for home. ROS: No reports of nausea and vomiting. No fevers or chills. No new chest pain. No productive sputum PHYSICAL EXAM: VITAL SIGNS: Reviewed CONSTITUTIONAL: Well developed and in no acute distress. EYES: Conjuctivae without sclera icterus. Extraocular movements grossly intact. HEAD, EARS, NOSE, THROAT: Moist buccal mucosa. Head is atraumatic, normocephalic. Hears conversational speech. No nasal drainage. RESPIRATORY: Non-labored respirations and equal bilateral excursions. CARDIOVASCULAR: Palpable 2+ radial pulses. ABDOMEN: No peritonitis. SKIN: Good skin turgor. Well perfused. NEUROLOGIC: Cranial nerves II through XII grossly intact. No focal or lateralizing signs. PSYCH: Appropriate affect. Alert and oriented to person, place and time. CLINICAL LABS: Reviewed. No new labs today. Blood sugar glucose under 200 overall, patient doing well and stable for discharge home ASSESSMENT: 1. Gastric outlet obstruction PLAN: 1. Overall patient is doing well and stable for discharge home Patient Condition at Discharge: Stable Plan - Discharge Summary Discharge Rx Participant: No New Discharge Prescriptions: New HYDROcodone/APAP 5-325MG [[place] 5-325] 1 tab PO Q6HR PRN 3 Days #12 tab PRN Reason: Pain Continue Cyclobenzaprine [Flexeril] 10 mg PO TID metFORMIN HCL [Glucophage] 425 mg PO DAILY amLODIPine [Norvasc] 10 mg PO HS Acetaminophen Tab [Tylenol] 1,000 mg PO TID Ketotifen 0.025% Ophth Soln [Zaditor] 1 drop BOTH EYES TID QUEtiapine FUMARATE [SEROquel] 600 mg PO HS Metoprolol Succinate (ER) [Toprol XL] 100 mg PO DAILY Fluticasone Nasal Crescent [Flonase Nasal Crescent] 2 spr EA NOSTRIL BID Aspirin 325 mg PO DAILY Loratadine 10 mg PO DAILY Gabapentin 1,200 mg PO TID Docusate Sodium 500 mg PO TID Sennosides 25 Mg 25 mg PO DAILY Ubidecarenone [Co Q-10] 200 mg PO DAILY Cetirizine HCl 10 mg PO DAILY Doxazosin [Cardura] 4 mg PO DAILY Ipratropium Nasal Crescent(Unknown Dose) 2 spr EA NOSTRIL BID Ferrous Gluconate 648 mg PO DAILY glipiZIDE [Glucotrol] 5 mg PO DAILY glipiZIDE [Glucotrol] 10 mg PO HS Clopidogrel [Plavix] 75 mg PO DAILY lisinopriL 40 mg PO DAILY Rosuvastatin Calcium [Crestor] 5 mg PO DAILY tadalafiL 20 mg PO DIRECTED PRN PRN Reason: E.D. Discontinued Ibuprofen [Motrin Ib] 800 mg PO TID Discharge Medication List Cyclobenzaprine [Flexeril] 10 mg PO TID 11/30/14 [History] metFORMIN HCL [Glucophage] 425 mg PO DAILY 11/30/14 [History] amLODIPine [Norvasc] 10 mg PO HS 03/23/19 [History] Acetaminophen Tab [Tylenol] 1,000 mg PO TID 08/14/21 [History] Cetirizine HCl 10 mg PO DAILY 08/14/21 [History] Fluticasone Nasal Crescent [Flonase Nasal Crescent] 2 spr EA NOSTRIL BID 08/14/21 [History] Ketotifen 0.025% Ophth Soln [Zaditor] 1 drop BOTH EYES TID 08/14/21 [History] Metoprolol Succinate (ER) [Toprol XL] 100 mg PO DAILY 08/14/21 [History] QUEtiapine FUMARATE [SEROquel] 600 mg PO HS 08/14/21 [History] Ubidecarenone [Co Q-10] 200 mg PO DAILY 08/14/21 [History] Aspirin 325 mg PO DAILY 03/23/24 [History] Clopidogrel [Plavix] 75 mg PO DAILY 08/27/24 [History] Docusate Sodium 500 mg PO TID 08/27/24 [History] Doxazosin [Cardura] 4 mg PO DAILY 08/27/24 [History] Ferrous Gluconate 648 mg PO DAILY 08/27/24 [History] Gabapentin 1,200 mg PO TID 08/27/24 [History] Ipratropium Nasal Crescent(Unknown Dose) 2 spr EA NOSTRIL BID 08/27/24 [History] Loratadine 10 mg PO DAILY 08/27/24 [History] Rosuvastatin Calcium [Crestor] 5 mg PO DAILY 08/27/24 [History] Sennosides 25 Mg 25 mg PO DAILY 08/27/24 [History] glipiZIDE [Glucotrol] 5 mg PO DAILY 08/27/24 [History] glipiZIDE [Glucotrol] 10 mg PO HS 08/27/24 [History] lisinopriL 40 mg PO DAILY 08/27/24 [History] tadalafiL 20 mg PO DIRECTED PRN 08/27/24 [History] HYDROcodone/APAP 5-325MG [[place] 5-325] 1 tab PO Q6HR PRN 3 Days #12 tab 09/07/24 [Rx] Follow up Appointment(s)/Referral(s): [facility] [NON-STAFF] - As Needed (Call to see if you can follow on discharge) [facility],Clinic [Primary Care Provider] - 1-2 days Major Cardoso MD [STAFF PHYSICIAN] - 1 Week Activity/Diet/Wound Care/Special Instructions: No driving while taking [place] No lifting over 10 pounds You may shower. No soaking or tub baths for 2 weeks Very light activity until you are reevaluated at your follow up appointment with your surgeon Discharge Disposition: HOME SELF-CARE
== END 2024-09-08 18:16 | disposition home or self-care (01) | DRG 326 ==
LOC: EC 16:44 → 3SCARD 21:30 → 4SSUR 08-28 15:00 → 3SCARD 08-28 15:28 → 6NMEDSUR 08-28 16:03 → 4SSUR 08-29 15:51
PROVIDERS: ADMIT Surgery; ATTEND Surgery
PROC: 0DB68ZX Excision of Stomach, Via Natural or Artificial Opening Endoscopic, Diagnostic (ICD-10-PCS; 2024-08-28)
PROC: 0D160ZA Bypass Stomach to Jejunum, Open Approach (ICD-10-PCS; principal; 2024-08-30 09:55)
DX: K26.4 Chronic or unspecified duodenal ulcer with hemorrhage (principal); E11.10 Type 2 diabetes mellitus with ketoacidosis without coma; K20.91 Esophagitis, unspecified with bleeding; K31.1 Adult hypertrophic pyloric stenosis; E87.1 Hypo-osmolality and hyponatremia; K56.609 Unspecified intestinal obstruction, unspecified as to partial versus complete obstruction; E78.5 Hyperlipidemia, unspecified; E83.42 Hypomagnesemia; E87.6 Hypokalemia; E83.52 Hypercalcemia; D64.9 Anemia, unspecified; E86.0 Dehydration; G47.00 Insomnia, unspecified; G89.29 Other chronic pain; I10 Essential (primary) hypertension; I25.10 Atherosclerotic heart disease of native coronary artery without angina pectoris; N40.0 Benign prostatic hyperplasia without lower urinary tract symptoms; Z79.82 Long term (current) use of aspirin; Z79.02 Long term (current) use of antithrombotics/antiplatelets; Z79.84 Long term (current) use of oral hypoglycemic drugs; Z79.899 Other long term (current) drug therapy; Z79.4 Long term (current) use of insulin; Z86.73 Personal history of transient ischemic attack (TIA), and cerebral infarction without residual deficits; Z89.612 Acquired absence of left leg above knee; Z95.5 Presence of coronary angioplasty implant and graft
CPT/HCPCS: 36415; 43239; 71045; 71046; 74177; 80048; 80053; 81001; 82009; 82150; 82272; 82803; 83036; 83605; 83690; 83735; 83930; 83935; 84132; 84133; 84484; 85025; 85027; 86850; 86900; 86901; 88305; 88312; 88313; 88342; 93005; 96365; 96366; 96367; 96368; 96375; 96376; 99291